=== PATIENT | female | born 2000 | race Caucasian/White ===

== ENCOUNTER → 2020-06-28 14:28 | Outpatient (BNVA) | payer OTHER, SELFPAY | PROVIDERS: Visit Provider Nurse Practitioner Family | DX: Z20.828 Contact with and (suspected) exposure to other viral communicable diseases (principal); J06.9 Acute upper respiratory infection, unspecified | CPT/HCPCS: 87635 ==

== ENCOUNTER → 2021-04-17 09:54 | Outpatient (BNVA) | payer OTHER, SELFPAY | PROVIDERS: Family Provider Family Medicine; PCP Family Medicine; Visit Provider Nurse Practitioner Psychiatric/Mental Health | DX: Z03.89 Encounter for observation for other suspected diseases and conditions ruled out (principal); F41.1 Generalized anxiety disorder; F41.0 Panic disorder [episodic paroxysmal anxiety] | CPT/HCPCS: 80053; 81025; 84439; 84443; 85025 ==

== ENCOUNTER 2021-06-19 09:19 | Emergency (ER) | payer MEDICAID, SELFPAY ==
[2021-06-19 09:35] VITALS: BP 105/70; PULSE 85; RESP 13; TEMP 37.1; O2SAT 98; BMI 19.0
--- NOTE | 2021-06-19 10:34 | W.ED.ABDPA2 ---
HPI - Abdominal Pain General: Chief Complaint: Abdominal Pain Stated Complaint: Nausious and ABD Pain on R side Time Seen by Provider: 06/19/21 09:24 Source: patient Mode of arrival: ambulatory Limitations: no limitations History of Present Illness: HPI narrative: Patient is a 21-year-old female presents to ED today with complaint of abdominal pain that initially started yesterday evening. She states pain began fairly suddenly and states that it took my breath away . She felt nauseous but has not had any episodes of emesis. She states throughout the night she slept okay but significant other states when she awoke this morning she continued to complain of pain to the right side of her abdomen. Patient reports a normal bowel movement this morning. No fevers. She did have a small amount of vaginal bleeding this morning. Last LMP was approximately 10 days ago. She does not complain of any vaginal discharge or odor. MD elicited complaint: abdominal pain Onset (ago): hour(s) Pain Consistency: constant Location: Other (R abdomen) Associated Symptoms: Reports nausea; Denies chills, diarrhea, dysuria, fever(s), hematochezia, hematuria, melena and vomiting Review of Systems Const: Denies: fever(s), chills, body aches or fatigue Card: Denies: chest pain Resp: Denies: dyspnea GI: Reports: abdominal pain and nausea; Denies: vomiting, diarrhea, hematochezia or melena : Denies: flank pain, dysuria, hematuria, vaginal odor or vaginal discharge Musc: Denies: neck pain, back pain, extremity pain or joint pain Skin/Breast: Denies: rash Neuro: Denies: headache(s) or dizziness [facility] ED PFSH: Medical History (Updated 06/19/21 @ 13:47 by OPAL Moody) Psychiatric care Social History Smoking and tobacco status: current every day smoker e-cigarettes E-Cigarette Details: vaporizer device and with nicotine E-cig/vape details: 5% nicotine 1 pod last 4-5 days Quit status (tobacco): considering quitting Second hand smoke exposure: No Smoking risk assessment/counseling performed?: No Physical Exam Const: COMMON NORMALS: no acute distress, patient oriented x3, no limitations and alert GENERAL APPEARANCE: cooperative NUTRITIONAL APPEARANCE: thin ORIENTATION/CONSCIOUSNESS: Yes awake, Yes oriented to person, Yes oriented to place and Yes oriented to time HENMT: COMMON NORMALS: normocephalic and atraumatic HEAD & SCALP: normocephalic and atraumatic Resp: COMMON NORMALS: normal respiratory effort and clear to auscultation bilaterally AUSCULTATION: clear to auscultation bilaterally Cardio: COMMON NORMALS: regular rate and regular rhythm RATE: regular rate RHYTHM: regular rhythm GI: COMMON NORMALS: Normal to inspection, nondistended, normoactive bowel sounds present, Soft to palpation, No hepatosplenomegaly present and no masses INSPECTION: Yes normal to inspection AUSCULTATION: Yes normoactive bowel sounds PALPATION: Yes Soft to palpation, Yes Tenderness to palpation present (GI) (RUQ, R abdomen, periumbilical), Yes Guarding due to palpation present (GI) and Yes No hepatosplenomegaly present : COMMON NORMALS: Yes no CVA tenderness BLADDER/KIDNEY EXAM: Yes no CVA tenderness Back/Pelvis: COMMON NORMALS: no CVA tenderness Extremity: GENERAL: Yes normal exam except as noted Neuro: COMMON NORMALS: patient oriented x3 SENSORIUM/ORIENTATION: Yes alert, Yes oriented to person, Yes oriented to place and Yes oriented to time Skin: COMMON NORMALS: no rashes or lesions noted GENERAL SKIN EXAM: no rashes or lesions noted Course Vital Signs: Vital signs: Vital Signs Temperature 98.7 F 06/19/21 09:35 Pulse Rate 85 06/19/21 12:29 Respiratory Rate 16 06/19/21 12:29 Blood Pressure 104/71 06/19/21 12:29 Pulse Oximetry 100 06/19/21 12:29 MDM - Abdominal Pain MDM Narrative: Medical decision making narrative: Patient clinically appears in no acute distress. Her vital signs are perfect. She has a very mild white count at 11.1. Chemistry panel is unremarkable. She has a nonspecific mild elevation to her lipase at 86. is negative. UA showing some hematuria most likely secondary to some small amount of vaginal bleeding that patient complained of. CT scan does not show any acute pathology. Her appendix was not visualized. Gallbladder was fluid-filled and distended-radiologist recommended ultrasound for further evaluation. This was essentially normal. US pelvis normal as well. At this time I would recommend close observation of symptoms at home over the next 24 hours with strict return to ED precautions given. Otherwise I would like her to follow up with PCP this week for re-evaluation. Lab Data: Labs: Lab Results 06/19/21 06/19/21 06/19/21 10:15 10:44 10:44 WBC 11.1 10^3/uL H 10 ^3/uL (4.0-10.0) RBC 4.23 10^6/uL 10^6 /uL (4.1-5.3) Hgb 12.6 g/dL g/dL (11.5-15.3) Hct 38.3 % % (37.0-47.0) MCV 90.5 fl fl (81-99) MCH 29.8 pg pg (28.0-34.0) MCHC 32.9 g/dL g/dL (30.0-36.0) RDW 11.9 % L % (12.1-15.1) Plt Count 318 10^3/cmm 10^3 /cmm (130-400) MPV 8.7 fL fL (7.4-10.4) Neut % (Auto) 72.8 % % Lymph % (Auto) 18.5 % % [place] % (Auto) 6.5 % % Eos % (Auto) 1.2 % % Baso % (Auto) 0.6 % % Neut # (Auto) 8.06 10^3/uL H 10 ^3/uL (1.8-7.7) Lymph # (Auto) 2.1 10^3/uL 10^3/ uL (0.8-4.8) [place] # (Auto) 0.7 10^3/uL 10^3/ uL (0.2-0.9) Eos # (Auto) 0.1 10^3/uL 10^3/ uL (0.0-0.8) Baso # (Auto) 0.1 10^3/uL 10^3/ uL (0.0-0.1) Nucleated RBC % (a uto) 0 % % Nucleated RBCs # 0.0 /100WBC /100W BC Sodium 136 mmol/L mmol/L (136-145) Potassium 4.6 mmol/L mmol/L (3.5-5.1) Chloride 102 mmol/L mmol/L (98-107) Carbon Dioxide 22 mmol/L mmol/L (22-29) Anion Gap 16.6 (5-19) BUN 14 mg/dL mg/dL (6-20) Creatinine 0.6 mg/dL mg/dL (0.5-0.9) GFR Calculation 126.2 mL/min mL/m in (90-130) Glucose 84 mg/dL mg/dL (65-115) Calculated Osmolal ity 282 mOsm/kg L mOs m/kg (285-295) Calcium 8.6 mg/dL mg/dL (8.5-10.5) Total Bilirubin 0.7 mg/dL mg/dL (0.15-1.2) AST 17 U/L U/L (0-32) ALT 9 U/L U/L (0-33) Alkaline Phosphata se 86 IU/L IU/L (35-105) Total Protein 7.7 g/dL g/dL (6.6-8.7) Albumin 4.5 g/dL g/dL (3.5-5.2) Globulin 3.2 g/dL g/dL (1.3-4.6) Lipase 86 U/L H U/L (13-60) HCG, Qual Urine Color Yellow (Yellow) Urine Appearance Clear (CLEAR) Urine pH 5 (5-7) Ur Specific Gravit y 1.015 (1.005-1.030) Urine Protein Neg (Negative) Urine Glucose (UA) Norm (Normal) Urine Ketones Negative (Negative) Urine Blood 2+ H (Negative) Urine Nitrate Negative (Negative) Urine Bilirubin Neg (Negative) Urine Urobilinogen Norm mg/dL mg/dL (Negative) Ur Leukocyte Arielle ase Negative (Negative) Urine RBC 0-4 /hpf H /hpf (0-2) Urine WBC None /hpf /hpf (0-5) Ur Squamous Epith Cells 5-10 /hpf H /hpf (0-5) Amorphous Sediment Not Reportable Urine Bacteria 1+ /hpf H /hpf (NONE) Urine Mucus 2+ /hpf /hpf 06/19/21 10:44 WBC RBC Hgb Hct MCV MCH MCHC RDW Plt Count MPV Neut % (Auto) Lymph % (Auto) [place] % (Auto) Eos % (Auto) Baso % (Auto) Neut # (Auto) Lymph # (Auto) [place] # (Auto) Eos # (Auto) Baso # (Auto) Nucleated RBC % (a uto) Nucleated RBCs # Sodium Potassium Chloride Carbon Dioxide Anion Gap BUN Creatinine GFR Calculation Glucose Calculated Osmolal ity Calcium Total Bilirubin AST ALT Alkaline Phosphata se Total Protein Albumin Globulin Lipase HCG, Qual Negative (Negative) Urine Color Urine Appearance Urine pH Ur Specific Gravit y Urine Protein Urine Glucose (UA) Urine Ketones Urine Blood Urine Nitrate Urine Bilirubin Urine Urobilinogen Ur Leukocyte Arielle ase Urine RBC Urine WBC Ur Squamous Epith Cells Amorphous Sediment Urine Bacteria Urine Mucus Imaging Data ^: CT Abd/Pel: Radiologist's impression: [facility] [place] [id number] Scan ReportSigned Patient: Chika Garces AUnit #: [id number]: 2000Acct#:[id number]/Sex: 21 / FADM Date: 06/19/21Loc: ERRoom/Bed:Attending Dr: Ordering Provider/Ordering MD: Mary Anthony Date of Service: 06/19/21 Procedure(s): CT abdomen pelvis w con* [id number] Accession Number(s): [id number] Report Number: [id number] WS: [id number] CT ABDOMEN PELVIS TECHNIQUE: Contrast-enhanced CT of the abdomen and pelvis with coronal and sagittal reformatted images. CLINICAL INFORMATION: R abdominal pain COMPARISON: None. DLP: 594.[address] scans at [facility] use at least one of these dose optimization techniques: automated exposure control; mA and/or kV adjustment per patient size (includes targeted exams where dose is matched to clinical indication); or iterative reconstruction. FINDINGS: Lung bases are well aerated. Diffuse fatty infiltration liver. Normal portal vein and splenic vein. Normal spleen. Normal GE junction. Fluid distended gallbladder which is otherwise normal in appearance. Normal pancreatic parenchymal enhancement. Adrenal glands are normal. Normal renal parenchymal enhancement. No hydronephrosis. Normal caliber abdominal aorta. Heterogeneous physiologic uterine enhancement. Thickened endometrium or fluid in the endometrial canal. Peripherally enhancing left ovarian or corpus luteum cyst measuring 13 mm. Small amount of fluid in the right pericolic gutter. Appendix is not visualized. Tortuous sigmoid colon with a low-lying transverse colon and cecum. Mild cecal and sigmoid constipation. CT/CT abdomen pelvis w con* [id number] IMPRESSION: 1. Small amount of fluid in the right lower quadrant. Appendix is not visualized. 2. Heterogeneous physiologic uterine enhancement with thickened endometrium and/or fluid. Peripheral enhancing left ovarian or corpus luteum cyst measuring 13 mm. 3. Small amount of free fluid in the cul-de-sac. 4. Fluid distended gallbladder. 5. Mild diffuse fatty infiltration of the liver. Notified OPAL Moody at 06/19/2021 12:34 PM. Dictated By:Manas Malik MDSigned By:Manas Malik MDSigned Date/Time:06/19/21 1239DD/ 1219 US gallbladder: Radiologist's impression: [facility] [address] Ultrasound Report Signed Patient: Chika Garces Unit #: [id number] : 2000 Age/Sex: 21 / F ADM Date: 06/19/21 Loc: ER Room/Bed: Attending Dr: Ordering Provider/Ordering MD: Mary Anthony Date of Service: 06/19/21 Procedure(s): US gall bladder 27356 Accession Number(s): [id number] Report Number: [id number] WS: [id number] ULTRASOUND ABDOMEN LIMITED CLINICAL INFORMATION: RUQ pain FINDINGS: Liver Size: Normal. Craniocaudal length: 11.8 cm. Echogenicity: Coarse Surface nodularity: None. Mass (size and location): None. Bile ducts Intrahepatic ducts: Normal. Common bile duct diameter: 0.2 cm. Gallbladder Mild fluid distention of the gallbladder Gallstones: None. Gallbladder sludge: None. Gallbladder wall thickening: None. Pericholecystic fluid: None. Sonographic Soto sign: Absent. Pancreas Normal as visualized. Right kidney: Normal. Hydronephrosis: None. Size: 12.1 cm x 4.1 cm x 3.2 cm. Abdominal aorta and IVC Visualized portions are normal. Ascites: None. US/US gall bladder [id number] IMPRESSION: 1. Mild diffuse fatty infiltration of the liver. 2. Fluid distended gallbladder. No gallbladder wall thickening or pericholecystic fluid. 3. Cholelithiasis. 4. Normal common bile duct. 5. No hydronephrosis in right kidney. Dictated By: Manas Malik MD Signed By: Manas Malik MD Signed Date/Time: 06/19/21 1331 DD/ 1328 US pelvis/TV: Radiologist's impression: [address] [place] [address] Ultrasound Report Signed Patient: Chika Garces Unit #: [id number] : 2000 Age/Sex: 21 / F ADM Date: 06/19/21 Loc: ER Room/Bed: Attending Dr: Ordering Provider/Ordering MD: Mary Anthony Date of Service: 06/19/21 Procedure(s): US transvaginal 25188 Accession Number(s): [id number] Report Number: [id number] WS: [id number] ULTRASOUND PELVIS TECHNIQUE: Transvaginal. CLINICAL INFORMATION: R abdominal pain, some vaginal bleeding, ovarian cysts COMPARISON: None. FINDINGS: Uterus Orientation: Anteverted. Size: 7.6 x 2.9 x 5.3 cm Masses: None. Cervix: Incidental nabothian cysts. Endometrium: Thickened Endometrium thickness: 14 mm. Adnexa: Multifollicular ovaries bilaterally. Right ovary size: 2.7 x 1.1 x 2.2 cm. Left ovary size: 2.3 x 2.6 x 4.3 cm. Free fluid: Present Other findings: None. US/US transvaginal [id number] IMPRESSION: 1. Thickened echogenic endometrium measuring 14 mm. 2. Incidental nabothian cysts in the cervix. 3. Multifollicular ovaries bilaterally. Normal vascularity to both ovaries. 4. Small amount of free fluid in the cul-de-sac. 5. No other significant findings. Dictated By: Manas Malik MD Signed By: Manas Malik MD Signed Date/Time: 06/19/21 1412 DD/ 1408 Discharge Plan Discharge Patient Disposition: Home Clinical Impression: Abdominal pain of unknown cause Condition: Stable Prescriptions: No Action sertraline 100 mg tablet 150 mg PO DAILY Qty: 60 RF: 1 acetaminophen 500 mg capsule 500 mg PO Q6H PRNRF: 0 multivitamin Tablet 1 tab PO DAILY RF: 0 Discharge Orders: Discharge ED (Routine); Ordered 06/19/21 Ordered By: Mary Anthony Referrals: Mellisa Stevens MD [Primary Care Provider] - Patient Instructions: Abdominal Pain (ED) Activity Restrictions/Additional Instructions: As we discussed please monitor symptoms closely over the next 24 to 48 hours. Return to the emergency department for progressive/worsening pain, repetitive episodes of vomiting or diarrhea, fevers, generally feeling unwell, or any other concerns you may have. Please follow-up with primary care this week for reevaluation. Hope you begin to feel better soon. Coding Level of Care Code ED Wire Wheeler for Chg Fwd Exam Comprehensive
--- NOTE | 2021-06-19 10:39 | CT_ITS ---
WS: [email or web address] CT ABDOMEN PELVIS TECHNIQUE: Contrast-enhanced CT of the abdomen and pelvis with coronal and sagittal reformatted image s. CLINICAL INFORMATION: R abdominal pain COMPARISON: None. DLP: 594.[address] scans at [facility] use at least one of these dose optimization techniques: automated e xposure control; mA and/or kV adjustment per patient size (includes targeted exams where dose is matc hed to clinical indication); or iterative reconstruction. FINDINGS: Lung bases are well aerated. Diffuse fatty infiltration liver. Normal portal vein and splenic vein. N ormal spleen. Normal GE junction. Fluid distended gallbladder which is otherwise normal in appearance . Normal pancreatic parenchymal enhancement. Adrenal glands are normal. Normal renal parenchymal enha ncement. No hydronephrosis. Normal caliber abdominal aorta. Heterogeneous physiologic uterine enhancement. Thickened endometrium or fluid in the endometrial tamera l. Peripherally enhancing left ovarian or corpus luteum cyst measuring 13 mm. Small amount of fluid i n the right pericolic gutter. Appendix is not visualized. Tortuous sigmoid colon with a low-lying tra nsverse colon and cecum. Mild cecal and sigmoid constipation. CT/CT abdomen pelvis w con* [id number] IMPRESSION: 1. Small amount of fluid in the right lower quadrant. Appendix is not visualiz ed. 2. Heterogeneous physiologic uterine enhancement with thickened endometrium an d/or fluid. Peripheral enhancing left ovarian or corpus luteum cyst measuring 1 3 mm. 3. Small amount of free fluid in the cul-de-sac. 4. Fluid distended gallbladder. 5. Mild diffuse fatty infiltration of the liver. Notified OPAL Moody at 06/19/2021 12:34 PM.
[2021-06-19 10:47] LABS: Urine Appearance Clear (CLEAR); Urine Color Yellow (Yellow)
[2021-06-19 10:48] LABS: Add Urine Microscopic? YES; Bilirubin Urine Neg (Negative); Blood Urine 2+ (Negative); Glucose Urine UA Norm (Normal); Ketones Urine Negative (Negative); Leukocyte Esterase Urine Negative (Negative); Nitrate Urine Negative (Negative); Protein Urine Neg (Negative); Specific Gravity, Urine 1.015 (1.005-1.030); Urobilinogen Urine Norm (Negative); pH Urine 5 (5-7)
[2021-06-19 10:53] LABS: Add Urine Culture? No; Bacteria Urine 1+ /hpf; Mucus Urine 2+ /hpf; RBC Urine 0-4 /hpf (0-2)
[2021-06-19 10:54] LABS: Basophils # 0.1 10^3/uL (0.0-0.1); Basophils % 0.6 %; Eosinophils # 0.1 10^3/uL (0.0-0.8); Eosinophils % 1.2 %; Hematocrit 38.3 % (37.0-47.0); Hemoglobin 12.6 g/dL (11.5-15.3); Lymphocytes # 2.1 10^3/uL (0.8-4.8); Lymphocytes % 18.5 %; Mean Corpuscular HGB Conc 32.9 g/dL (30.0-36.0); Mean Corpuscular Hemoglobin 29.8 pg (28.0-34.0); Mean Corpuscular Volume 90.5 fl (81-99); Mean Platelet Volume 8.7 fL (7.4-10.4); Monocytes # 0.7 10^3/uL (0.2-0.9); Monocytes % 6.5 %; Neutrophils # 8.06 10^3/uL (1.8-7.7); Neutrophils % 72.8 %; Nucleated Red Blood Cells % 0 %; Platelet Count 318 10^3/cmm (130-400); Red Blood Count 4.23 10^6/uL (4.1-5.3); Red Cell Distribution Width 11.9 % (12.1-15.1); White Blood Count 11.1 10^3/uL (4.0-10.0)
[2021-06-19 11:14] LABS: Alanine Aminotransferase 9 U/L (0-33); Albumin Level 4.5 g/dL (3.5-5.2); Alkaline Phosphatase 86 IU/L (35-105); Anion Gap 16.6 (5-19); Aspartate Amino Transferase 17 U/L (0-32); Blood Urea Nitrogen 14 mg/dL (6-20); Calcium 8.6 mg/dL (8.5-10.5); Carbon Dioxide 22 mmol/L (22-29); Chloride 102 mmol/L (98-107); Globulin 3.2 g/dL (1.3-4.6); Glomerular Filtration Rate 126.2 mL/min (90-130); Glucose 84 mg/dL (65-115); Lipase 86 U/L (13-60); Osmolality Calculated 282 mOsm/kg (285-295); Potassium 4.6 mmol/L (3.5-5.1); Sodium 136 mmol/L (136-145); Total Bilirubin 0.7 mg/dL (0.15-1.2); Total Protein 7.7 g/dL (6.6-8.7)
[2021-06-19 11:19] LABS: HCG, Serum Qual Negative (Negative)
[2021-06-19 11:25] VITALS: BP 103/69; PULSE 84; RESP 16; O2SAT 99
[2021-06-19] MEDS: iohexol 300 mg/mL 100 mL Btl IV (11:44)
[2021-06-19 12:29] VITALS: BP 104/71; PULSE 85; RESP 16; O2SAT 100
--- NOTE | 2021-06-19 12:33 | US_ITS ---
WS: [email or web address] ULTRASOUND ABDOMEN LIMITED CLINICAL INFORMATION: RUQ pain FINDINGS: Liver Size: Normal. Craniocaudal length: 11.8 cm. Echogenicity: Coarse Surface nodularity: None. Mass (size and location): None. Bile ducts Intrahepatic ducts: Normal. Common bile duct diameter: 0.2 cm. Gallbladder Mild fluid distention of the gallbladder Gallstones: None. Gallbladder sludge: None. Gallbladder wall thickening: None. Pericholecystic fluid: None. Sonographic Soto sign: Absent. Pancreas Normal as visualized. Right kidney: Normal. Hydronephrosis: None. Size: 12.1 cm x 4.1 cm x 3.2 cm. Abdominal aorta and IVC Visualized portions are normal. Ascites: None. US/US gall bladder [id number] IMPRESSION: 1. Mild diffuse fatty infiltration of the liver. 2. Fluid distended gallbladder. No gallbladder wall thickening or pericholecys tic fluid. 3. Cholelithiasis. 4. Normal common bile duct. 5. No hydronephrosis in right kidney.
--- NOTE | 2021-06-19 12:33 | US_ITS ---
WS: [email or web address] ULTRASOUND PELVIS TECHNIQUE: Transvaginal. CLINICAL INFORMATION: R abdominal pain, some vaginal bleeding, ovarian cysts COMPARISON: None. FINDINGS: Uterus Orientation: Anteverted. Size: 7.6 x 2.9 x 5.3 cm Masses: None. Cervix: Incidental nabothian cysts. Endometrium: Thickened Endometrium thickness: 14 mm. Adnexa: Multifollicular ovaries bilaterally. Right ovary size: 2.7 x 1.1 x 2.2 cm. Left ovary size: 2.3 x 2.6 x 4.3 cm. Free fluid: Present Other findings: None. US/US transvaginal [id number] IMPRESSION: 1. Thickened echogenic endometrium measuring 14 mm. 2. Incidental nabothian cysts in the cervix. 3. Multifollicular ovaries bilaterally. Normal vascularity to both ovaries. 4. Small amount of free fluid in the cul-de-sac. 5. No other significant findings.
== END 2021-06-19 13:56 | disposition home or self-care (01) ==
PROVIDERS: Emergency Provider Physician Assistant; PCP Family Medicine
DX: R10.9 Unspecified abdominal pain (principal); F17.290 Nicotine dependence, other tobacco product, uncomplicated
CPT/HCPCS: 36415; 74177; 76705; 76830; 80053; 81001; 83690; 84703; 85025; 99283; Q9967

== ENCOUNTER → 2021-08-06 08:46 | Outpatient (BNVA) | payer BC, MEDICAID, SELFPAY | PROVIDERS: PCP Family Medicine; Visit Provider Nurse Practitioner Psychiatric/Mental Health | DX: F41.1 Generalized anxiety disorder (principal); F41.0 Panic disorder [episodic paroxysmal anxiety] | CPT/HCPCS: 99214 ==

== ENCOUNTER → 2021-09-04 10:30 | Outpatient (BNVA) | payer BC, SELFPAY | PROVIDERS: PCP Family Medicine; Visit Provider Nurse Practitioner Psychiatric/Mental Health | DX: F41.1 Generalized anxiety disorder (principal); F41.0 Panic disorder [episodic paroxysmal anxiety] | CPT/HCPCS: 99203 ==

== ENCOUNTER → 2021-11-26 15:40 | Outpatient (BNVA) | payer BC, SELFPAY | PROVIDERS: PCP Family Medicine; Visit Provider Nurse Practitioner Psychiatric/Mental Health | DX: F41.0 Panic disorder [episodic paroxysmal anxiety] (principal); F41.1 Generalized anxiety disorder; F33.1 Major depressive disorder, recurrent, moderate | CPT/HCPCS: 99214 ==

== ENCOUNTER 2022-07-30 06:16 | Outpatient (CLI) | payer BC, MEDICAID, SELFPAY ==
--- NOTE | 2022-07-30 06:32 | US_ITS ---
WS: [email or web address] EARLY OBSTETRICAL ULTRASOUND (<14 WEEKS). HISTORY: DATING COMPARISON: None available. Single intrauterine gestational sac is identified. Cardiac activity at 160 BPM. Bannock-rump length spencer sures 3.9 cm which corresponds to a gestation of 10w6d. Normal-appearing yolk sac and amnion demonstr ated. No subchorionic hemorrhage. No free fluid. Normal size ovaries with no mass. US/US OB <= 14 weeks fetus [id number] IMPRESSION: 1. Single intrauterine gestation of 10 weeks 6 days with an EDC of 02/19/2023. 2. Normal cardiac activity.
== END 2022-07-30 06:17 | disposition home or self-care (01) ==
LOC: RAD 06:19
PROVIDERS: PCP Family Medicine; Visit Provider Family Medicine
DX: Z36.87 Encounter for antenatal screening for uncertain dates (principal); Z3A.10 10 weeks gestation of pregnancy
CPT/HCPCS: 76801

== ENCOUNTER 2023-01-20 11:02 | Outpatient (CLI) | payer BC, MEDICAID, SELFPAY ==
--- NOTE | 2023-01-20 | US_ITS ---
WS: [email or web address] ULTRASOUND OB LIMITED TECHNIQUE: Limited ultrasound examination of the fetus. CLINICAL INFORMATION: CLUBFOOT COMPARISON: 10/08/22 FINDINGS: Cervix appears long and closed measuring 3.5 cm Single interuterine gestation. presentation is breech. Placental location is anterior. Placenta grade: 2 heart rate 131 BPM. Normal amniotic fluid volume Biophysical profile 8 out of 8. breathin movement: 2 tone: 2 Amniotic fluid: 2 US/US OB BPP wo NST [id number] IMPRESSION: 1. Normal biophysical profile 8 out of 8 2. Previously described bilateral clubfoot. 3. presentation is breech.
== END 2023-01-20 11:03 | disposition home or self-care (01) ==
PROVIDERS: PCP Family Medicine; Visit Provider Family Medicine
DX: O36.8990 Maternal care for other specified fetal problems, unspecified trimester, not applicable or unspecified (principal); O32.1XX0 Maternal care for breech presentation, not applicable or unspecified; Z3A.00 Weeks of gestation of pregnancy not specified
CPT/HCPCS: 76819

== ENCOUNTER 2023-02-05 15:28 | Outpatient (CLI) | payer BC, MEDICAID, SELFPAY ==
[2023-02-05 15:28] VITALS: RESP 17; BMI 24.4
[2023-02-05 15:42] VITALS: BP 110/73; PULSE 75
[2023-02-05 15:57] VITALS: BP 106/65; PULSE 72
[2023-02-05 16:11] VITALS: BP 114/74; PULSE 74
[2023-02-05 16:26] VITALS: BP 113/74; PULSE 75
--- NOTE | 2023-02-05 16:39 | USR_ITS ---
PROCEDURE INFORMATION: Exam: US Biophysical Profile Without Non-Stress Test Exam date and time: 02/05/2023 5:04 PM Age: 22 years old Clinical indication: status abnormalities: ; Other: Non reassuring fht; Single gestation; Third trimester (=28 weeks 0 days); TECHNIQUE: Imaging protocol: US biophysical profile without non-stress testing. COMPARISON: US OB BPP wo NST [id number] 01/20/2023 12:31 PM FINDINGS: heart rate: 150 bpm Amniotic fluid index: RAMAN is 8.5 cm. BIOPHYSICAL PROFILE: breathing movement (BPP): 2 out of 2. body movement (BPP): 2 out of 2. tone (BPP): 2 out of 2. Amniotic fluid (BPP): 2 out of 2. MATERNAL ANATOMY: Cervix: Cervical length measures 3.9 cm. US/US OB BPP wo NST [id number] IMPRESSION: Biophysical profile score is normal at 01/28.
== END 2023-02-05 17:19 | disposition home or self-care (01) ==
LOC: OPOB 15:36 → OBGYN 15:36
PROVIDERS: PCP Family Medicine; Visit Provider Family Medicine
DX: Z36.9 Encounter for antenatal screening, unspecified (principal)
CPT/HCPCS: 59025; 76819; 99211

== ENCOUNTER 2023-02-08 18:00 | Outpatient (CLI) | payer BC, MEDICAID, SELFPAY ==
[2023-02-08] VITALS (7 sets, daily range): BP systolic 100–116; BP diastolic 65–74; PULSE 70–78; RESP 16; TEMP 36.8; BMI 24.6
--- NOTE | 2023-02-08 18:21 | USR_ITS ---
PROCEDURE INFORMATION: Exam: US Biophysical Profile Without Non-Stress Test Exam date and time: 02/08/2023 6:32 PM Age: 22 years old Clinical indication: Other: Non reactive nst; TECHNIQUE: Imaging protocol: US biophysical profile without non-stress testing. COMPARISON: US OB BPP NST [id number] 02/05/2023 5:04 PM FINDINGS: BIOPHYSICAL PROFILE: breathing movement (BPP): 2 out of 2. body movement (BPP): 2 out of 2. tone (BPP): 2 out of 2. Amniotic fluid (BPP): 2 out of 2. Cervix appears closed, measuring 3.6 cm in length. Note is made of breech presentation at this time. heart rate of 131 beats per minute. Gestational age of 38 weeks 3 days clinically. Anterior placenta. US/US OB BPP NST [id number] IMPRESSION: Biophysical profile score is 8 out of 8.
== END 2023-02-08 19:33 | disposition home or self-care (01) ==
LOC: OPOB 18:02 → OBGYN 18:03
PROVIDERS: Family Provider Family Medicine; PCP Family Medicine; Visit Provider Family Medicine
DX: Z36.9 Encounter for antenatal screening, unspecified (principal)
CPT/HCPCS: 59025; 76819; 99211

== ENCOUNTER 2023-02-10 10:00 | Outpatient (CLI) | payer BC, MEDICAID, SELFPAY ==
[2023-02-10 09:56] VITALS: BMI 23.4
[2023-02-10 10:06] VITALS: BP 127/76; PULSE 81
[2023-02-10 10:07] VITALS: TEMP 35.9
[2023-02-10 10:28] VITALS: BP 116/66; PULSE 80
[2023-02-10 10:45] VITALS: BP 116/66; PULSE 80; RESP 16
== END 2023-02-10 10:45 | disposition home or self-care (01) ==
LOC: OPOB 10:01 → OBGYN 10:02
PROVIDERS: Family Provider Family Medicine; PCP Family Medicine; Visit Provider Family Medicine
DX: Z36.9 Encounter for antenatal screening, unspecified (principal)
CPT/HCPCS: 59025; 99211

== ENCOUNTER 2023-02-11 04:53 | Inpatient (IN) | payer BC, MEDICAID, SELFPAY ==
--- NOTE | 2023-02-03 14:04 | ANES.PREANE2 ---
Pre-Anesthetic Assessment Height/Weight: Height 1.5 m Operation Date: 02/17/23 07:20 Proposed Procedures p Section(Not Applicable) - Shahriar Cortes MD Familial anesthetic complications: none Was Beta Amalia taken within 24 hours: N/A Was Clonidine taken within 24 hours: N/A Social No alcohol and No tobacco Exam alert, oriented x 3, clear to auscultation bilaterally and regular rate & rhythm Airway Submandibular: within normal limits Cervical ROM: within normal limits Mallampati: Class I Dentition: chipped Neuropsych Anxiety and Depression Anesthetic Plan ASA status: 2 Anesthesia: Regional (specify below) (SAB) Medications/Allergies Home Medications Medication Instructions Recorded Confirmed Last Taken Type multivitamin 1 tab PO DAILY 03/22/21 12/25/21 Unknown History bupropion HCl 150 mg 24 hr tablet, 150 mg PO QAM #30 tabs 12/25/21 12/25/21 Unknown Rx extended release escitalopram oxalate 10 mg tablet 10 mg PO .q am #30 tabs 12/25/21 12/25/21 Unknown Rx Allergies Allergy/AdvReac Type Severity Reaction Status Date / Time Penicillins Allergy ALGY-Anaphy Verified 11/26/21 16:04 laxis cillins Allergy Severe Anaphalaxis Uncoded 11/26/21 16:04 & rash PFSH Anesthesia Social History Smoking and tobacco status: current every day smoker e-cigarettes E-Cigarette Details: vaporizer device and with nicotine E-cig/vape details: 5% nicotine 1 pod last 4-5 days Quit status (tobacco): considering quitting Second hand smoke exposure: No Smoking risk assessment/counseling performed?: No Data Anesthesia Cardiac Studies: No Data to Display
[2023-02-11] VITALS (58 sets, daily range): BP systolic 95–138; BP diastolic 43–85; PULSE 65–96; RESP 16–17; TEMP 36.6–36.8; O2SAT 98–100; BMI 25.2
[2023-02-11 05:44] LABS: Basophils # 0.1 10^3/uL (0.0-0.1); Basophils % 0.5 %; Eosinophils # 0.1 10^3/uL (0.0-0.8); Hematocrit 32.1 % (37.0-47.0); Hemoglobin 10.4 g/dL (11.5-15.3); Lymphocytes # 2.9 10^3/uL (0.8-4.8); Lymphocytes % 25.9 %; Mean Corpuscular HGB Conc 32.4 g/dL (30.0-36.0); Mean Corpuscular Hemoglobin 28.2 pg (28.0-34.0); Mean Platelet Volume 9.5 fL (7.4-10.4); Monocytes % 8.5 %; Neutrophils # 7.22 10^3/uL (1.8-7.7); Neutrophils % 63.6 %; Nucleated Red Blood Cells % 0 %; Platelet Count 193 10^3/cmm (130-400); Red Blood Count 3.69 10^6/uL (4.1-5.3); White Blood Count 11.4 10^3/uL (4.0-10.0)
[2023-02-11 05:54] LABS: Amphetamines Screen Urine Negative (Negative); Barbiturates Screen Urine Negative (Negative); Benzodiazepines Screen Urine Negative (Negative); Cocaine Screen Urine Negative (Negative); Opiate Screen Urine Negative (Negative); PCP Screen Urine Negative (Negative); THC Screen Urine Negative (Negative)
[2023-02-11] MEDS: citric acid-sodium citrate 30 mL UDC PO (06:45)
[2023-02-11] MEDS: metoclopramide 5 mg/mL SDV 2 mL 10 MG IVP (06:45)
[2023-02-11] MEDS: famotidine 20 mg/2 mL INJ IVP (06:45)
--- NOTE | 2023-02-11 06:48 | PM.OBGYHP ---
Providers/Chief Complaint Admitting Physician: Shahriar Cortes MD Primary Care Provider: Shahriar Cortes MD Chief Complaint: epi consult HPI FINANCIAL SERVICES DIRECTOR History of Present Illness Chika Garces is a 22 year old 2 para 0-0-1-0 female at 38 weeks estimated gestational age presenting for a section due to breech presentation. We are performing her section a week earlier than planned because she has had multiple biophysical profiles in which the baby's movements have been sluggish and is required more than the usual time to obtain a 6 out of 8 biophysical profile 2 out of last 4 valvular profiles are performed. As such, I felt that the benefits of perform the section early outweigh the risks of waiting for another week. Especially in the case of a child with clubfeet and a potential for other unknown problems as well. Otherwise her has been notable for her being on methadone throughout her . And been positive for THC as well during her initial drug screen. Her blood type is O+. Her antibody screen was negative. She is rubella immune. She passed her glucose screen. The remainder of her infectious disease profile was within normal limits. Present Details : 2 Para: 0 Labs Rubella: Immune RPR: Negative GBS: Negative Review of Systems General: Reports: 10 or more systems reviewed and unremarkable except in HPI and below Const: Reports: fatigue; Denies: fever(s) Eyes: Denies: change in vision Card: Denies: chest pain Musc: Reports: back pain Jacques/Lymph: Denies: easy bruising Medications/Allergies Home Medications Medication Instructions Recorded Confirmed Last Taken Type methadone 5 mg tablet 55 mg PO DAILY 02/11/23 02/11/23 02/11/23 04:30 History sjltyo42-dqbc fum,oh-fvdho-hry 1 tab PO DAILY 02/11/23 02/11/23 02/10/23 08:00 History docusate sodium 100 mg capsule 100 mg PO BID #14 caps 02/13/23 Unknown Rx ibuprofen 800 mg tablet 800 mg PO TID #45 tabs 02/13/23 Unknown Rx oxycodone-acetaminophen 5 mg-325 2 tab PO Q6H PRN Moderate To 02/13/23 Unknown Rx mg tablet Severe Pain #28 tabs Allergies Allergy/AdvReac Type Severity Reaction Status Date / Time Penicillins Allergy ALGY-Anaphy Verified 11/26/21 16:04 laxis cillins Allergy Severe Anaphalaxis Uncoded 11/26/21 16:04 & rash PFSH FINANCIAL SERVICES DIRECTOR PFSH: Family History (Updated 02/11/23 @ 06:55 by Shahriar Cortes MD) Father Hypertension Social History Smoking and tobacco status: current every day smoker e-cigarettes E-Cigarette Details: vaporizer device and with nicotine E-cig/vape details: 5% nicotine 1 pod last 4-5 days Quit status (tobacco): considering quitting Second hand smoke exposure: No Smoking risk assessment/counseling performed?: No Vitals/I&O/Wt Last Vital Signs Pulse 85 02/11/23 05:40 Resp 16 02/11/23 05:07 BP 117/69 02/11/23 05:40 O2 Del Method Room Air 02/11/23 05:17 Weight last 48 hrs Weight 125 lb Physical Exam Const: COMMON NORMALS: patient oriented x3 and alert HENMT: COMMON NORMALS: moist oral mucous membranes HEAD & SCALP: normal to inspection Chest: COMMONS NORMALS: normal inspection of the chest Resp: COMMON NORMALS: clear to auscultation bilaterally AUSCULTATION: clear to auscultation bilaterally Cardio: COMMON NORMALS: regular rate and regular rhythm RATE: regular rate RHYTHM: regular rhythm GI: INSPECTION: Yes normal to inspection and Yes other (Gravid) Extremity: COMMON NORMALS: normal to inspection GENERAL: Yes edema (Trace) Neuro: COMMON NORMALS: patient oriented x3, moves all extremities and no sensory deficits noted SENSORIUM/ORIENTATION: Yes alert Psych: COMMON NORMALS: mental status grossly normal Skin: COMMON NORMALS: no rashes or lesions noted GENERAL SKIN EXAM: no rashes or lesions noted Data 02/11/23 20:19 A&P Assessment and plan (1) 38 weeks gestation of : We will proceed with a section. Once again we are making the decision to proceed because the patient had multiple biophysical profiles demonstrating a fetus that was subjectively sluggish and requiring extra time to get a 6 out of 8 biophysical profile. In the face of a fetus that has known anomalies the benefits of delivery now outweigh the small risks of delivering at 38-week baby rather than waiting for another week. Dr. Hammond has been contacted will be present during the (2) Breech presentation: (3) anomaly: Clubfeet have been identified and have been evaluated by a level 2 ultrasound. No further anomalies have been identified at this time, but we are mindful of the increased risk that the baby may have other anomalies as well that have not been identified yet. (4) History of biophysical profile: Attestations Medical Necessity Statement*: I anticipate routine and post care Coding Level of Care Code Acute Code for Chg Fwd Diagnoses 38 weeks gestation of Z3A.38 Breech presentation O32.1XX0 anomaly History of biophysical profile Z92.89
[2023-02-11] MEDS: lactated ringers 1,000 ML 999 ML IV (06:49)
--- NOTE | 2023-02-11 08:04 | PM.OP ---
Operative Report Date of procedure: February 11, 2023 Pre-op diagnosis: 22-year-old 2 para 0-0-1-0 at 38 weeks estimated gestational age. 6 out of 8 biophysical profile Breech presentation Clubfeet Prescribed methadone use of mother throughout Post-op diagnosis: Status post lower transverse section Procedure done: Low-transverse section Specimens removed/disposition: 1. Male infant with a weight of 6 pounds 9 ounces and Apgars of 9 and 10 Surgeon: Shahriar Cortes Estimated blood loss (mL): 600 Complications: None Procedure: The patient was brought back to the operating room where she was prepped and draped in usual sterile fashion. Anesthesia was found to be adequate. A lower transverse skin incision was then made with a #10 blade. I then dissected down to the underlying subcutaneous tissue until arriving at the prerectal fascia. The fascia was then nicked with the scalpel bilaterally. The fascial incisions were then carried laterally with Abel scissors. Attention was then turned to the superior aspect of the incision which was grasped with kochers and tented up away from the underlying rectus abdominis muscles. The muscles were then dissected away from the fascia manually, and later with Abel scissors. Attention was then turned to the inferior aspect of the incision, and the fascia was dissected away from the underlying muscle in similar fashion. The rectus abdominis muscles were then spread manually. The peritoneum was entered manually. Excellent visualization of the uterus was noted. A lower transverse uterine incision was then made with a #10 blade. Upon arriving at the intrauterine cavity, the uterine incision was then extended manually. The infant was noted to be in a vaishali breech position. The baby was delivered without difficulty. After delivery of the head, the mouth and nose were suctioned at the site of the incision. There was no meconium. There was no nuchal cord. The baby was then completely delivered and placed on the abdomen. The cord was cut and clamped. The baby was then handed to Dr. Hammond. The placenta was removed intact. The uterus was externalized. The intrauterine cavity was cleansed of any remaining debris. The uterine incision was reapproximated in 2 layers. The first layer was performed with 0 Vicryl in a running locked stitch. The second layer was an imbricating stitch also using 0 Vicryl. The uterus was replaced into the abdomen. The peritoneum was then irrigated with warm saline. I reexamined the uterine incision and found it to be hemostatic. The rectus abdominis muscles were then reapproximated using 0 Vicryl in a running stitch. The fascia was then reapproximated using 0 Vicryl in running stitch. The subcutaneous tissue was then reapproximated using 0 Vicryl in a running stitch. The skin was reapproximated using madai. A sterile dressing was placed. All counts were correct x2. Both the mother and baby were in stable condition.
[2023-02-11] MEDS: HYDROcodone-acetaminophen 5-325 mg Tablet PO ×2 (09:46→17:08)
--- NOTE | 2023-02-11 10:10 | PC.NURSE ---
breech presentation, club feet
--- NOTE | 2023-02-11 10:10 | ANES.PAUD2 ---
Documented by User: Steffany White CRNA 02/11/23 10:12 Pre-Anesthetic Update Pre-Anesthetic Assessment: Date of Surgery/Procedure: 02/11/23 Proposed Procedure: Operation Date: 02/11/23 07:20 Proposed Procedures p Section(Not Applicable) - Shahriar Cortes MD Any changes to Pre-Anesthetic Assessment?: No Last Intake: Intake Last Liquid Date 02/10/23 Last Liquid Time 23:30 Last Solid Date 02/10/23 Last Solid Time 23:30 Labs Last 48hrs: Short CBC 02/11/23 Range/Units 05:27 WBC 11.4 H (4.0-10.0) 10^3/ uL Hgb 10.4 L (11.5-15.3) g/dL Hct 32.1 L (37.0-47.0) % MCV 87.0 (81-99) fl Plt Count 193 (130-400) 10^3/c mm Neut % (Auto) 63.6 % Neut # (Auto) 7.22 (1.8-7.7) 10^3/u L Blood Bank 02/11/23 05:27 Blood Type O Positive Rho(D) Type Positive Antibody Screen Negative Vitals: Pulse Rate 82 02/11/23 10:04 Respiratory Rate 16 02/11/23 05:07 Respiratory Effort Spontaneous, Non- Labored 02/11/23 05:17 Respiratory Depth Normal 02/11/23 05:17 Respiratory Patter n Normal 02/11/23 05:17 Blood Pressure 110/58 02/11/23 10:04 Oxygen Delivery Me thod Room Air 02/11/23 05:17 Cardiac Studies: No Data to Display Documented by User: Sami Sepulveda 02/11/23 13:53 Pre-Anesthetic Update Pre-Anesthetic Assessment: Date of Surgery/Procedure: 02/11/23 Cardiac Studies: No Data to Display
--- NOTE | 2023-02-11 10:42 | PC.NURSE ---
0800 rounding in OR
[2023-02-11] MEDS: dextrose 5%-lactated ringers 1,000 ML 125 ML IV ×2 (12:52→22:19)
[2023-02-11] MEDS: ketorolac 30 mg/mL INJ IVP ×2 (13:46→20:03)
--- NOTE | 2023-02-11 13:53 | ANE.PACU2 ---
Inpatient post-anesthesia follow up: Airway intact: Yes Vital signs: Temperature 98.0 F Pulse Rate 88 Respiratory Rate 17 Blood Pressure 116/69 Pulse Oximetry 100 Oxygen Delivery Me thod Room Air Oxygen Flow Rate Fraction of Inspir ed Oxygen Hydration adequate: Yes Nausea and vomiting: No Pain level: 2 Mental status: Baseline
[2023-02-11] MEDS: ferrous sulfate EC 325 mg Tablet PO (20:03)
[2023-02-11] MEDS: docusate sodium 100 mg Capsule PO (20:03)
[2023-02-11 20:40] LABS: Hematocrit 29.1 % (36-47); Mean Corpuscular HGB Conc 32.3 g/dL (30-55); Mean Corpuscular Hemoglobin 28.7 pg (27-33); Mean Corpuscular Volume 88.7 fl (85-98); Mean Platelet Volume 9.3 fL (7.4-10.4); Platelet Count 170 10^3/cmm (157-399); Red Blood Count 3.28 10^6/uL (3.85-5.65); Red Cell Distribution Width 12.9 % (12.1-15.1); White Blood Count 12.78 10^3/uL (3.29-11.43)
[2023-02-11] MEDS: oxyCODONE-APAP 5-325 mg Tablet PO (22:19)
[2023-02-12] VITALS (7 sets, daily range): BP systolic 114–120; BP diastolic 65–73; PULSE 72–81; RESP 15–18; TEMP 36.3–36.4; O2SAT 98
[2023-02-12] MEDS: ketorolac 30 mg/mL INJ IVP (01:53)
[2023-02-12] MEDS: oxyCODONE-APAP 5-325 mg Tablet PO ×2 (06:25→11:33)
--- NOTE | 2023-02-12 08:03 | PM.OBGYPN ---
SPORTS BROADCASTER Subjective Subjective: Interval history: The patient had some difficulty with pain last night. She is doing better this morning. Her vitals have been good. Her output has been good. She has passed flatus. There have been no concerns. Labor: Amniotic Membrane Status: Intact Monitor Mode: External Contraction Pattern: Irregular Vitals/I&O/Wt Last Vital Signs Temp 97.5 F L 02/12/23 04:30 Pulse 75 02/12/23 04:29 Resp 16 02/12/23 06:25 BP 114/72 02/12/23 04:29 Pulse Ox 98 02/12/23 06:25 O2 Del Method Room Air 02/11/23 22:00 02/11/23 02/12/23 02/12/23 22:59 06:59 14:59 Intake Total 1500 / 1530 1860.417 / 3390.417 Output Total 1350 / 1880 900 / 2780 Balance 150 / -350 960.417 / 610.417 Weight last 48 hrs Weight 125 lb Physical Exam Narrative: She is in no acute distress Lungs are clear auscultation bilaterally Her heart has a regular rate and rhythm Her fundus is below the umbilicus and firm Her dressing is clean, dry and intact Her extremities have trace edema Urinary Catheter Management: [place]: Cath Placed During This Visit: yes, but has since been removed by the nurse Reason for Continuing Indwelling Catheter: Decision to DC Catheter Urinary Catheter Date of Insertion: 02/11/23 Urinary Catheter Time of Insertion: 07:05 Date Urinary Catheter Removed: 02/12/23 Time Urinary Catheter Discontinued: 05:05 Data 02/11/23 20:19 A&P Assessment and plan (1) 38 weeks gestation of : Overall, the patient is doing well. We will continue to monitor her pain today. Especially in light of her chronic methadone use. She may not respond as well to pain medication as result. (2) Status post : Attestations Medical Necessity Statement*: Routine post care. I anticipate she will be discharged home tomorrow. Coding Level of Care Code Acute Code for Chg Fwd Diagnoses 38 weeks gestation of Z3A.38 Status post Z98.891
[2023-02-12] MEDS: prenatal vitamin Capsule 1 CAP PO (09:41)
[2023-02-12] MEDS: ferrous sulfate EC 325 mg Tablet PO ×2 (09:41→20:07)
[2023-02-12] MEDS: docusate sodium 100 mg Capsule PO ×2 (09:41→20:07)
[2023-02-12] MEDS: ibuprofen 800 mg tablet PO ×2 (16:53→20:08)
[2023-02-12] MEDS: simethicone 80 mg Chew PO (20:08)
[2023-02-13 03:41] VITALS: RESP 18
[2023-02-13] MEDS: oxyCODONE-APAP 5-325 mg Tablet PO (03:41)
[2023-02-13 06:01] VITALS: BP 109/68; PULSE 69; TEMP 36.3
--- NOTE | 2023-02-13 06:30 | PM.OBGYDC ---
Discharge Providers TRAIN CONTROL ELECTRONIC TECHNICIAN Date of Admission: 02/11/23 04:53 Date of Discharge: 02/13/23 Attending Provider at Admission: Shahriar Cortes MD Attending Provider at Discharge: Shahriar Cortes MD Primary Care Provider: Shahriar Cortes MD Diagnoses at Discharge Discharge Diagnosis (1) 38 weeks gestation of : Status: Acute (2) Status post : Status: Acute Reason for Visit Reason for Visit: epi consult Hospital Course Hospital Course The patient presented to the hospital for a scheduled . The was scheduled earlier than expected owing to a 6 out of 8 biophysical profile. The patient's was unremarkable. The patient's hospital course was also relatively unremarkable. Not unexpectedly, her pain was more challenging to control given that the patient is on baseline methadone. Her bleeding has been well controlled. She has tolerated a regular diet well. She has been ambulating. There have been no concerns. Information Peripartum Data: Delivery Method: Physical Exam Narrative: She is in no acute distress Lungs are clear auscultation bilaterally Her heart has a regular rate and rhythm Her fundus is below the umbilicus and firm Her incision is clean, dry and intact Her extremities have trace edema Urinary Catheter Management: [place]: Cath Placed During This Visit: yes, but has since been removed by the nurse Reason for Continuing Indwelling Catheter: Decision to DC Catheter Urinary Catheter Date of Insertion: 02/11/23 Urinary Catheter Time of Insertion: 07:05 Date Urinary Catheter Removed: 02/12/23 Time Urinary Catheter Discontinued: 05:05 Discharge Data Studies Completed and Pending Laboratory Results WBC 12.78 10^3/uL (3.29-11.43) H 02/11/23 20:19 RBC 3.28 10^6/uL (3.85-5.65) L 02/11/23 20:19 Hgb 9.40 g/dL (11.27-16.99) L 02/11/23 20:19 Hct 29.1 % (36-47) L 02/11/23 20:19 MCV 88.7 fl (85-98) 02/11/23 20:19 MCH 28.7 pg (27-33) 02/11/23 20:19 MCHC 32.3 g/dL (30-55) 02/11/23 20:19 RDW 12.9 % (12.1-15.1) 02/11/23 20:19 Plt Count 170 10^3/cmm (157-399) 02/11/23 20:19 MPV 9.3 fL (7.4-10.4) 02/11/23 20:19 Neut % (Auto) 63.6 % 02/11/23 05:27 Lymph % (Auto) 25.9 % 02/11/23 05:27 [place] % (Auto) 8.5 % 02/11/23 05:27 Eos % (Auto) 1.0 % 02/11/23 05:27 Baso % (Auto) 0.5 % 02/11/23 05:27 Neut # (Auto) 7.22 10^3/uL (1.8-7.7) 02/11/23 05:27 Lymph # (Auto) 2.9 10^3/uL (0.8-4.8) 02/11/23 05:27 [place] # (Auto) 1.0 10^3/uL (0.2-0.9) H 02/11/23 05:27 Eos # (Auto) 0.1 10^3/uL (0.0-0.8) 02/11/23 05:27 Baso # (Auto) 0.1 10^3/uL (0.0-0.1) 02/11/23 05:27 Nucleated RBC % (auto) 0 % 02/11/23 05:27 Nucleated RBCs # 0.0 /100WBC 02/11/23 05:27 Urine Opiates Screen Negative ng/mL (Negative) 02/11/23 05:27 Ur Barbiturates Screen Negative ng/mL (Negative) 02/11/23 05:27 Ur Phencyclidine Scrn Negative ng/mL (Negative) 02/11/23 05:27 Ur Amphetamines Screen Negative ng/mL (Negative) 02/11/23 05:27 U Benzodiazepines Scrn Negative ng/mL (Negative) 02/11/23 05:27 Urine Cocaine Screen Negative ng/mL (Negative) 02/11/23 05:27 U Marijuana (THC) Screen Negative ng/mL (Negative) 02/11/23 05:27 Blood Type O Positive 02/11/23 05:27 Rho(D) Type Positive 02/11/23 05:27 Antibody Screen Negative 02/11/23 05:27 Vitals Last Vital Signs Temp 97.3 F L 02/13/23 06:01 Pulse 69 02/13/23 06:01 Resp 18 02/13/23 03:41 BP 109/68 02/13/23 06:01 Pulse Ox 98 02/12/23 06:25 O2 Del Method Room Air 02/12/23 22:00 Discharge Plan Discharge Patient Disposition: Home Condition: Stable Prescriptions: New ibuprofen 800 mg Tablet 800 mg PO TID Qty: 45 0RF oxycodone-acetaminophen 5-325 mg Tablet 2 tab PO Q6H PRN (Reason: Moderate To Severe Pain) Qty: 28 0RF docusate sodium 100 mg Capsule 100 mg PO BID Qty: 14 0RF Continued methadone 5 mg Tablet 55 mg PO DAILY -lbwo fum,wi-elgvp-xpe 1 tab PO DAILY Discontinued famotidine [Pepcid] 20 mg Tablet 20 mg PO DAILY Discharge Orders: Discharge Order (Routine); Ordered 02/13/23 Ordered By: Shahriar Cortes Referrals: Shahriar Cortes MD [Primary Care Provider] - 02/18/23 Discharge Diet: Advance as tolerated Discharge Activity: Resume usual activity Patient Instructions: Depression (DC), Bleeding (DC), Preeclampsia and Eclampsia After Delivery (GEN), Hemorrhage (DC), OB - [place], OB Discharge Report, OB Food/Drug Interaction Guide, Opioid Safety, OB Home Care, OB Proud Parent Packet Discharge Attestations TRAIN CONTROL ELECTRONIC TECHNICIAN Time Spent in Discharge Care*: less than 30 min Coding Level of Care Code Acute Code for Chg Fwd Diagnoses 38 weeks gestation of Z3A.38 Status post Z98.891
[2023-02-13] MEDS: ferrous sulfate EC 325 mg Tablet PO (08:34)
[2023-02-13] MEDS: docusate sodium 100 mg Capsule PO (08:34)
[2023-02-13] MEDS: ibuprofen 800 mg tablet PO (08:34)
[2023-02-13] MEDS: prenatal vitamin Capsule 1 CAP PO (08:34)
[2023-02-13] MEDS: methadone 10 mg Tablet 55 MG PO (08:34)
[2023-02-13 08:41] VITALS: BP 114/76; PULSE 76; TEMP 36.9
== END 2023-02-13 14:09 | disposition home or self-care (01) | DRG 788 ==
PROVIDERS: Admitting Provider Family Medicine; Family Provider Family Medicine; PCP Family Medicine; Visit Provider Family Medicine
PROC: 10D00Z1 Extraction of Products of Conception, Low, Open Approach (ICD-10-PCS; CPT 59514; principal; 2023-02-11 07:00)
DX: O32.1XX0 Maternal care for breech presentation, not applicable or unspecified (principal); Z3A.38 38 weeks gestation of pregnancy; Z37.0 Single live birth; O99.320 Drug use complicating pregnancy, unspecified trimester; O75.89 Other specified complications of labor and delivery; F11.90 Opioid use, unspecified, uncomplicated; O77.8 Labor and delivery complicated by other evidence of fetal stress
CPT/HCPCS: 36415; 51702; 59025; 59409; 80306; 85025; 85027; 86850; 86900; 99211; J1885; J2274; J2405; J2765; J3010; J3490; J7120; J7121

== ENCOUNTER 2024-07-09 12:25 | Outpatient (CLI) | payer BC, MEDICAID, SELFPAY ==
[2024-07-09] VITALS (13 sets, daily range): BP systolic 97–125; BP diastolic 52–63; PULSE 82–100; TEMP 37.4; BMI 19.1
[2024-07-09 13:07] LABS: Bilirubin Urine Negative (Negative); Blood Urine Negative (Negative); Glucose Urine UA Negative (Normal); Ketones Urine 4+ (Negative); Leukocyte Esterase Urine Negative (Negative); Nitrate Urine Negative (Negative); Protein Urine Trace (Negative); Specific Gravity, Urine 1.024 (1.005-1.030); Urine Appearance Clear (CLEAR); Urine Color Yellow (Yellow); pH Urine 6.5 (5-7)
[2024-07-09 13:12] LABS: Bacteria Urine Trace /hpf; Hyaline Casts Urine 0-4 /lpf; RBC Urine 0-2 /hpf (0-2); WBC Urine 0-5 /hpf (0-5)
[2024-07-09] MEDS: promethazine 25 mg/mL SDV 1 mL IM (14:06)
[2024-07-09] MEDS: sodium chloride 0.9% 1,000 ML 999 ML IV (14:49)
== END 2024-07-09 15:50 | disposition home or self-care (01) ==
LOC: OPOB 12:29 → OBGYN 12:30
PROVIDERS: PCP Family Medicine; Visit Provider Family Medicine
DX: O21.9 Vomiting of pregnancy, unspecified (principal); Z3A.00 Weeks of gestation of pregnancy not specified; R50.9 Fever, unspecified
CPT/HCPCS: 36415; 81001; 96372; 99211; J2550; J7030

== ENCOUNTER 2024-10-31 09:34 | Inpatient (IN) | payer BC, MEDICAID, SELFPAY ==
--- OUTSIDE RECORDS SUMMARY | 2017-07-17 11:00 | XMS_ITS | Continuity of Care Document ---
Author Organization [facility] Address [address] [id number][place] [address] Phone Care Team Providers Care Project Manager Retail Name Role Phone Young Lopez DDS Unavailable Unavailable Allergies, Adverse Reactions, Alerts Substance Reaction Status Criticality PENICILLIN Active No Information Medications Medication Instructions Dosage Effective Dates (start - stop) Status Comments Vitamins and Minerals tablet - Active Procedures Procedure Date Bitewings Four Films Intraoral Periapical First Film Intraoral Periapical Each Additional Film Intraoral Periapical Each Additional Film Intraoral Periapical Each Additional Film Intraoral Periapical Each Additional Film Intraoral Periapical Each Additional Film Intraoral Periapical Each Additional Film Comprehensive Oral Evaluatio n New Or Established EDR Approval Note Advance Directives Directive Yes / No Effective Date File Name No Information Encounters Encounter Description Practice Location Reason(s) For Visit Diagnoses Date Provider Providers Copied on Encounter [facility], [id number], [id number], [place] tel:[phone] [facility] Encounter for dental exam and cleaning w/o abnormal findings John Vidal. [address] [place], [address], [place]. tel:[phone] Referring Provider: Young Taylor, [address] [place], [address]. tel:[phone] Family History Family Member Type Diagnosis Age At Onset No Information Payers Payer name Insurance type Covered republican ID Jeannine griggs(alcides) Francie Dover [id number] Social History Type Description Quantity Date Captured Comments Alcohol Use Details No Caffeine Use Details Unknown Tobacco Use Status Current non-smoker 18 Smoking Status Never smoker Non-Smoking Tobacco Use Details : No Details Available : No Details Available Sex Female Chief Complaint And Reason For Visit No Information Reason For Referral Reason For Referral No Information History Of Present Illness Encounter Date Complaint History Of Prese nt Illness No Information Functional Status Date Functional Assessmen t No Information Instructions Date Instruction Additional Infor sherley Lifestyle education Related to D ental Examination Assessments Type Assessment Date No Information Patient Care Teams Name Effective Dates (start - stop) Status Members No Information
[2024-10-31] VITALS (71 sets, daily range): BP systolic 89–118; BP diastolic 52–86; PULSE 69–126; RESP 15–17; TEMP 36.6; O2SAT 96–100; BMI 20.9
[2024-10-31 09:35] LABS: Nitrazine Paper, PH Positive
[2024-10-31 09:50] LABS: Basophils # 0.1 10^3/uL (0.0-0.1); Basophils % 0.5 %; Eosinophils # 0.1 10^3/uL (0.0-0.8); Eosinophils % 0.5 %; Hematocrit 37.3 % (36-47); Lymphocytes # 2.6 10^3/uL (0.8-4.8); Mean Corpuscular HGB Conc 32.4 g/dL (30-55); Mean Corpuscular Hemoglobin 27.9 pg (27-33); Mean Corpuscular Volume 86.1 fl (85-98); Mean Platelet Volume 9.2 fL (7.4-10.4); Monocytes # 0.7 10^3/uL (0.2-0.9); Monocytes % 5.5 %; Neutrophils # 9.61 10^3/uL (1.8-7.7); Neutrophils % 72.9 %; Nucleated Red Blood Cells % 0 %; Platelet Count 210 10^3/cmm (157-399); Red Blood Count 4.33 10^6/uL (3.85-5.65); Red Cell Distribution Width 12.9 % (12.1-15.1); White Blood Count 13.17 10^3/uL (3.29-11.43)
[2024-10-31] MEDS: lactated ringers 1,000 ML 999 ML IV (09:56)
[2024-10-31] MEDS: famotidine 20 mg/2 mL INJ IVP (09:56)
[2024-10-31] MEDS: metoclopramide 5 mg/mL SDV 2 mL 10 MG IVP (09:56)
[2024-10-31] MEDS: citric acid-sodium citrate 30 mL UDC PO (09:56)
[2024-10-31] MEDS: clindamycin 900 MG/50 ML PREMIX 100 MG IV (09:57)
--- NOTE | 2024-10-31 10:03 | ANES.PREANE2 ---
Pre-Anesthetic Assessment Height/Weight: Height 1.5 m Weight 47.174 kg Pulse BP 88 117/86 10/31/24 09:13 10/31/24 09:13 Preop Diagnosis: Prior Was Beta Amalia taken within 24 hours: Yes Was Clonidine taken within 24 hours: Yes Social Smokes MJ daily, prior narcotic use, on Methadone Exam alert, oriented x 3, clear to auscultation bilaterally and regular rate & rhythm Airway Submandibular: within normal limits Cervical ROM: within normal limits Mallampati: Class II Comments: Comments: Poor dentition History/ROS No significant history except as noted and No significant complaints Pulmonary None reported CV/HEM None reported None reported Hepatic None reported GI None reported Metabolic None reported Musc/skel None reported Neuropsych None reported Anesthetic Plan ASA status: 2 Anesthesia: Anesthesia Evaluation and Regional (specify below) (SAB) Risk of > 500 ml blood loss (7ml/kg in children): No Medications/Allergies Home Medications ?Medication ?Instructions ?Recorded ?Confirmed ?Last Taken ?Type methadone 5 mg tablet 55 mg PO DAILY 02/11/23 07/07/24 02/11/23 04:30 History zizpyt81-ccke fum,xy-aaiwp-kkt 1 tab PO DAILY 02/11/23 07/07/24 02/10/23 08:00 History meloxicam 15 mg tablet 15 mg PO DAILY #20 tabs 07/07/24 07/07/24 Unknown Rx Allergies Allergy/AdvReac Type Severity Reaction Status Date / Time Penicillins Allergy ALGY-Anaphy Verified 11/26/21 16:04 laxis cillins Allergy Severe Anaphalaxis Uncoded 11/26/21 16:04 & rash Current Medications Generic Name Dose Route Start Last Admin Trade Name Freq PRN Reason Stop Dose Admin Lactated Ringer's 1,000 mls @ 999 mls/hr 10/31/24 09:33 10/31/24 09:56 Lactated Ringers IV 10/31/24 10:33 999 mls/hr .Q1H1M ONE Administration PFSH Anesthesia Family History Father Hypertension Social History Smoking and tobacco/nicotine status: former use of tobacco/nicotine Quit status (tobacco/nicotine): considering quitting Second hand smoke exposure: No Female Reproductive History : 3 Data Anesthesia 10/31/24 09:30 Short CBC 10/31/24 Range/Units 09:30 WBC 13.17 H (3.29-11.43) 10^3/uL Hgb 12.10 (11.27-16.99) g/dL Hct 37.3 (36-47) % MCV 86.1 (85-98) fl Plt Count 210 (157-399) 10^3/cmm Neut % (Auto) 72.9 % Neut # (Auto) 9.61 H (1.8-7.7) 10^3/uL
--- NOTE | 2024-10-31 10:12 | PM.OBGYHP ---
Providers/Chief Complaint Admitting Physician: Shahriar Cortes Primary Care Provider: Shahriar Cortes MD Chief Complaint: Ctx, Poss ROM HPI LEASING MANAGER History of Present Illness Chika Garces is a 24 year old 37 and 6-day female presenting with spontaneous rupture membranes. The patient has a history of a previous section and was scheduled to have a section at 39 weeks. She began having contractions earlier today, and recently had some vaginal drainage that made her wonder if she had broke her water. She came into the hospital where she was checked and found to be nitrazine positive and grossly ruptured. Present Details : 3 Para: 1 Review of Systems General: Reports: 10 or more systems reviewed and unremarkable except in HPI and below Const: Reports: fatigue; Denies: fever(s) Eyes: Denies: change in vision Card: Denies: chest pain Musc: Reports: back pain Jacques/Lymph: Denies: easy bruising Medications/Allergies Home Medications ?Medication ?Instructions ?Recorded ?Confirmed ?Last Taken ?Type methadone 5 mg tablet 30 mg PO DAILY 02/11/23 10/31/24 10/31/24 08:00 History axdshz27-omwi fum,dy-mugex-yra 1 tab PO DAILY 02/11/23 10/31/24 02/10/23 08:00 History ondansetron HCl 4 mg tablet 4 mg PO Q6H 10/31/24 10/31/24 10/31/24 08:00 History Allergies Allergy/AdvReac Type Severity Reaction Status Date / Time Penicillins Allergy ALGY-Anaphy Verified 11/26/21 16:04 laxis cillins Allergy Severe Anaphalaxis Uncoded 11/26/21 16:04 & rash PFSH LEASING MANAGER PFSH: Family History Father Hypertension Social History (Updated 10/31/24 @ 10:16 by Shahriar Cortes MD) Smoking and tobacco/nicotine status: former use of tobacco/nicotine Quit status (tobacco/nicotine): considering quitting Second hand smoke exposure: No Substance/Drug Use: former Former substance use details: Currently on methadone and history of marijuana use during her . Vitals/I&O/Wt Last Vital Signs Pulse 88 10/31/24 09:13 Resp 17 10/31/24 08:55 BP 117/86 10/31/24 09:13 Weight last 48 hrs Weight 104 lb Physical Exam Const: COMMON NORMALS: patient oriented x3 and alert HENMT: COMMON NORMALS: moist oral mucous membranes HEAD & SCALP: normal to inspection Chest: COMMONS NORMALS: normal inspection of the chest Resp: COMMON NORMALS: clear to auscultation bilaterally AUSCULTATION: clear to auscultation bilaterally Cardio: COMMON NORMALS: regular rate and regular rhythm RATE: regular rate RHYTHM: regular rhythm GI: INSPECTION: Yes normal to inspection and Yes other (Gravid) Extremity: COMMON NORMALS: normal to inspection GENERAL: Yes edema (Trace) Neuro: COMMON NORMALS: patient oriented x3, moves all extremities and no sensory deficits noted SENSORIUM/ORIENTATION: Yes alert Psych: COMMON NORMALS: mental status grossly normal Skin: COMMON NORMALS: no rashes or lesions noted GENERAL SKIN EXAM: no rashes or lesions noted Data 10/31/24 09:30 Results Labs OB ([facility]): Obstetrics US/Biophysical Profile 02/08/23 Blood Type O Positive 02/11/23 Antibody Screen Negative 02/11/23 Hct, (36-47) 37.3 % Today Hgb, (11.27-16.99) 12.10 g/dL Today Rho(D) Type Positive 02/11/23 Plt Count, (157-399) 210 10^3/cmm Today Urine Opiates Screen, (Negative) Negative ng/mL 02/11/23 Ur Barbiturates Screen, (Negative) Negative ng/mL 02/11/23 Ur Phencyclidine Scrn, (Negative) Negative ng/mL 02/11/23 Ur Amphetamines Screen, (Negative) Negative ng/mL 02/11/23 U Benzodiazepines Scrn, (Negative) Negative ng/mL 02/11/23 Urine Cocaine Screen, (Negative) Negative ng/mL 02/11/23 U Marijuana (THC) Screen, (Negative) Negative ng/mL 02/11/23 A&P Assessment and plan (1) 37 weeks gestation of : I anticipate a lower transverse section. I once again discussed the risks with the patient and her significant other. Dr. Hammond will be the automotive service advisor. Dr. Ojeda is covering this weekend. (2) History of section complicating : (3) Spontaneous rupture of membranes: (4) Methadone use: PDMP PDMP Reviewed: Not Reviewed Attestations Medical Necessity Statement*: Routine low-transverse section and post section care Coding Level of Care Code Acute Code for Chg Fwd Diagnoses 37 weeks gestation of Z3A.37 History of section complicating O34.219 Spontaneous rupture of membranes Methadone use F11.90
[2024-10-31 10:30] LABS: Amphetamines Screen Urine Negative (Negative); Barbiturates Screen Urine Negative (Negative); Benzodiazepines Screen Urine Negative (Negative); Cocaine Screen Urine Negative (Negative); Opiate Screen Urine Negative (Negative); PCP Screen Urine Negative (Negative); THC Screen Urine Positive (Negative)
[2024-10-31] MEDS: BUPivacaine 0.5% INJ 30 mL INJECTION (11:00)
[2024-10-31] MEDS: tranexamic acid 1,000 MG/100 ML PREMIX 600 MG IV (11:14)
[2024-10-31] MEDS: SODIUM CHLORIDE 0.9% IV (11:15)
[2024-10-31] MEDS: GENTAMICIN IV (11:15)
--- NOTE | 2024-10-31 11:51 | P.OP_ITS ---
Operative Report Date of procedure: October 31, 2024 Pre-op diagnosis: 1. 24-year-old 3 para 1-0-1-1 at 37 weeks and 6 days presenting with spontaneous rupture membranes 2. History of section planning a repeat section Post-op diagnosis: Status post repeat low-transverse section Procedure done: Repeat low-transverse section Specimens removed/disposition: 1. Female infant with a weight of and Apgars of 2. Placenta with a three-vessel cord delivered intact Surgeon: Shahriar Cortes MD Estimated blood loss (mL): 1,000 Complications: None Procedure: The patient was brought back to the operating room where she was prepped and draped in the usual sterile fashion. Spinal anesthesia was attempted but was not adequate. As result, the an anesthesia provider augmented the anesthesia with IV medications. After she was more sedated, we proceeded with the procedure. A lower transverse skin incision was then made with a #10 blade. I then dissected down to the underlying subcutaneous tissue until arriving at the prerectal fascia. The fascia was then nicked with the scalpel bilaterally. The fascial incisions were then carried laterally with Abel scissors. Attention was then turned to the superior aspect of the incision which was grasped with kochers and tented up away from the underlying rectus abdominis muscles. The muscles were then dissected away from the fascia manually, and later with Abel scissors. Attention was then turned to the inferior aspect of the incision, and the fascia was dissected away from the underlying muscle in similar fashion. The rectus abdominis muscles were then spread manually. The peritoneum was entered manually. Excellent visualization of the uterus was noted. A lower transverse uterine incision was then made with a #10 blade. Upon arriving at the intrauterine cavity, the uterine incision was then extended manually. The infant was noted to be in vertex position. The baby was delivered without difficulty. After delivery of the head, the mouth and nose were suctioned at the site of the incision. There was no meconium. There was no nuchal cord. The baby was then completely delivered and placed on the abdomen. The cord was cut and clamped. The baby was then handed to the waiting nurse. The placenta was removed intact. The uterus was externalized. The intrauterine cavity was cleansed of any remaining debris. The uterine incision was reapproximated in 2 layers. The first layer was performed with 0 Vicryl in a running locked stitch. The second layer was an imbricating stitch also using 0 Vicryl. The uterus was still somewhat boggy, and there was more intrauterine bleeding than usual prior to the stitches being placed. As such TXA was also given. The uterus became palpably firmer and the bleeding seemed improved. The uterus was replaced into the abdomen. The peritoneum was then irrigated with warm saline. I reexamined the uterine i ncision and found it to be hemostatic. The rectus abdominis muscles were then reapproximated using 0 Vicryl in a running stitch. The fascia was then reapproximated using 0 Vicryl in running stitch. The skin was reapproximated using madai. A sterile dressing was placed. All counts were correct x2. Both the mother and baby were in stable condition.
[2024-10-31] MEDS: ketorolac 30 mg/mL INJ IVP ×2 (13:06→17:49)
[2024-10-31] MEDS: dextrose 5%-lactated ringers 1,000 ML 125 ML IV (14:54)
--- OUTSIDE RECORDS SUMMARY | 2024-10-31 15:51 | XMS_ITS | Continuity of Care Document ---
Author Organization [facility] Morton [place]og[place]ut [facility], LNirav, [facility] ([facility]) Address [address] [place] [address] Care Team Providers Care Bus Steward Name Role Phone NINO CORTES Primary Care Provider Unavaila ble Assessment No assessment recorded. Plan of Treatment Reminders Order Date Submit Date Provider Last Modified By Organization Details Last Modified Time Details Appointments RETURN OB 2024 12:50P M Nino Cortes MD Not available Not available Not available RETURN OB 2024 01:50P M Nino Cortes MD Not available Not available Not available RETURN OB 2024 12:50P M Nino Cortes MD Not available Not available Not available Lab None recorded . Referral None recorded . Procedures None recorded . Surgeries None recorded . Imaging None recorded . Medication Orders None recorded . Patient TargetsNo targets recorded. Patient InstructionsNo instructions recorded. Reason for Referral None Reported. Results Created Date Observation Date Name Description Value Unit Range Abnormal Flag Note LastModifiedBy Organization Detail LastModifiedTime 07/02/1907/01/2024 US, obste tric, 1st trime ster No observ ation record ed. [address] [place], [address], 07/12/2024 16:06:59 10/13/1909/29/2024 US, obste tric, 3rd trime ster No observ ation record ed. [email or web address] Not Available 10/13 08:55:54 Result Notes None recorded. Problems Name Problem SNOMED Code Status Onset Date Resolution Date Notes Provider Name and Address Organization Details Recorded Time Adenoide ctomy planned [id number] Completed 201604/24/2017 Adenoide ctomy - Status is Inactive ; 04/24/20 5:04PM by Tessa Hudson CMT, Annotati on/Roxane dum; Promoted ; acuity set as *; Not Available [facility] 03:10:15 Finding of body mass index 176769438 Completed 202208/26/2024 BODY MASS INDEX (BMI) LESS THAN OR EQUAL TO 19 IN ADULT; Recorded 09/10/19 12:36PM by Mary Jo Valle RN, Office Visit; Promoted ; acuity set as *; BMI LESS THAN 19,ADULT ; Recorded 07/04/19 6:57AM by Itzel Strong LPN, Office Visit; Promoted ; acuity set as *; ; Start Date : 07/04/19 SONIYA felix [facility] 5 13:41:26 Normal pregnanc y in [facility] [id number] 4106 Completed 2022 Nino Cortes MD [address] [place] [address], [phone] , [facility], L.[facility].C[facility]ud 3 06:59:26 Normal pregnanc y in [facility] diogo 96178921799 4106 Active 2022 SONIYA felix [facility] 5 13:41:31 Urinary tract infectio n in pregnanc y 098522787 Active 2024 MARY JO felix [facility] 5 14:12:40 Problem Notes None recorded. Procedures Surgical History Date Name Laterality Status Provider Name and Address Organization Details Recorded Time 023 section [facility] 02/18/2023 14:53:47 023 Date of Last Pap Smear completed [facility] [place] 02/18/2023 14:52:25 023 sampling of cervix for Papanicolaou smear completed [facility] [place] 08/26/2024 13:43:06 [facility] 13:43:38 Imaging Results None recorded. Procedure Notes None recorded. Medical Equipment None Reported. Allergies Allergen ID Allergen Name Allergen Category Reaction Reaction Severity Criticality Documentation Date Start Date Code Code System Note Provider Name and Address Organization Details Recorded Time 1660 Product containin g penicilli n (product) medicatio n Not available Not available Not available 10/07/2022 33641 8001 SN[facility]ED [facility] [place] 13:26:10 [address]7512 penicilli n G sodium medicatio n anaphylax is Not available Not available 01/18/2023 9900 RxNorm React ion: Anaph ylaxi s, Diffi culty breat rayna, Diffi culty swall owing ; Comme nt: Recor ded 09/09 12:36 PM by Joanne Valle RN, Offic e Visit ; Promo venancio; Sanjiv olson ce: *; Reaso n: Drug aller gy; ; Not Available [facility] 3 02:28:37 21356 amoxicill in medicatio n Not available Not available Not available 07/29/2024 723 RxNorm SONIYA Mckeon [facility], LArnaud[facility]ArnaudCArnaud 08:44:30 Medications Name Sig Start Date Stop Date Status Note LastModified by Organization Details LastModified Time venlafaxi ne ER 75 mg capsule,e xtended release 24 hr take 1 capsule BY MOUTH EVERY DAY 05/06 completed Not Available Not Available Not Available azithromy vane 250 mg tablet TAKE 2 TABLETS BY MOUTH TODAY, THEN TAKE 1 TABLET DAILY ON DAYS 2-5 10/07 completed Not Available Not Available Not Available ibuprofen 800 mg tablet TAKE 1 TABLET BY MOUTH THREE TIMES DAILY 03/31 completed Not Available Not Available Not Available methadone 10 mg tablet Take 1 tablet every 8 hours by oral route. active pt is taking 40mg QD Not Available Not Available Not Available meloxicam 15 mg tablet TAKE 1 TABLET BY MOUTH EVERY DAY 07/29 completed Not Available Not Available Not Available clindamyc in HCl 150 mg capsule take 1 capsule BY MOUTH THREE TIMES DAILY for 10 days 07/29 completed Not Available Not Available Not Available venlafaxi ne ER 150 mg capsule,e xtended release 24 hr take 1 capsule BY MOUTH DAILY 05/06 completed Not Available Not Available Not Available sulfameth oxazole 800 mg-trimet hoprim 160 mg tablet TAKE 1 TABLET BY MOUTH TWICE DAILY 07/29 completed Not Available Not Available Not Available oxycodone -acetamin ophen 5 mg-325 mg tablet TAKE 2 TABLETS BY MOUTH EVERY 6 HOURS NEEDED FOR moderate TO severe pain 03/31 completed Not Available Not Available Not Available famotidin e 20 mg tablet TAKE ONE TABLET BY MOUTH TWICE DAILY NEEDED 02/18 completed Not Available Not Available Not Available promethaz ine 25 mg tablet TAKE 1 TABLET BY MOUTH EVERY 6 HOURS NEEDED FOR NAUSEA AND VOMITING 05/06 completed Not Available Not Available Not Available bupropion HCl 75 mg tablet TAKE ONE TABLET BY MOUTH every morning FOR FOUR DAYS, THEN one IN THE MORNING AND afternoo n (6 hours apart) 10/07 completed Not Available Not Available Not Available docusate sodium 100 mg capsule take 1 capsule BY MOUTH TWICE DAILY 03/31 completed Not Available Not Available Not Available norethind deidra (contrace ptive) 0.35 mg tablet TAKE 1 TABLET BY MOUTH EVERY DAY 08/05 completed Not Available Not Available Not Available ondansetr on 4 mg disintegr ating tablet place ONE tablet ON TONGUE EVERY 6 HOURS NEEDED active Not Available Not Available No t Available escitalop raghu 10 mg tablet TAKE 1 TABLET BY MOUTH EVERY DAY active Not Available Not Available No t Available escitalop raghu 20 mg tablet TAKE 1 TABLET BY MOUTH ONCE DAILY IN THE MORNING 10/07 completed Not Available Not Available Not Available nitrofura ntoin monohydra te/macroc rystals 100 mg capsule take 1 capsule BY MOUTH EVERY TWELVE HOURS FOR 7 DAYS 10/21 completed Not Available Not Available Not Available methadone QD take with 5mg 02/18 completed 0; Recorded 09/10/19 12:36PM by Mary Jo Valle, RN, Office Visit; Not Available Not Available Not Available 02/18 completed Not Available Not Available Not Available Miralax daily 02/18 completed Recorded 08/12/19 9:23AM by Mary Jo Valle, RN, Office Visit; Refill Quantity : 1; Applicat or; Not Available Not Available Not Available Vitamin QD active 0; Recorded 09/10/19 12:36PM by Mary Jo Valle RN, Office Visit; Not Available Not Available Not Available Rosalva 0.25 mg-0.035 mg tablet TAKE 1 TABLET BY MOUTH EVERY DAY 05/06 completed Not Available Not Available Not Available Vitals Date Recorded Body height Body mass index (BMI) Body weight Respiratory rate Body temperature Heart rate Oxygen saturation Oxygen saturation in Arterial blood by Pulse oximetry Systolic blood pressure Diastolic blood pressure Provider Name and Address Organization Details Last Updated DateTime 149.23 cm 21 kg/m2 61037.4 1 g 16 /min 98.2 [degF] 80 /min 98 % 98 % 104 mm[Hg] 60 mm[Hg] MARY JO VALLE [facility] 15:19:17 Social History Question Answer Notes LastModified by Organizat ion Details LastModified Time Tobacco Smoking Status Former Smoker SONIYA felix [facility] 01/21/2023 09:35:41 What Is Your Level Of Alcohol Consumption? None Information not available 09/13/2024 Which Illicit Or Recreational Drugs Have You Used? Marijuana Information not available 09/13/2024 What Is Your Relationship Status? Domestic Partner [email or web address] Information not available 01/21/2023 How Much Tobacco Do You Smoke? No Information not available 09/13/2024 Do You Use Any Illicit Or Recreational Drugs? Yes Information not available 09/13/2024 Sex: Unknown Functional Status None recorded. Mental Status None recorded. Family History Relationship Description Onset Age of this Age Resolved Age Notes LastModified by Organization Details LastModified Time Father Hypertensive disorder [email or web address] Not available 09:35:23 Medical History Condition Response Coronary Artery Disease N Gout N Other N Blood Diseases N Kidney Stones N Hyperthyroidism N Blood Transfusion N Breast Cancer N COPD N Lung Disease N Hypothyroidism N Depression N Defects or Inherited Disease N Developmental or Behavioral Disorders N Breast Problem N Difficulty Swallowing N Anesthesia Complications N Meniere's disease N Anxiety Disorder Y Muscle, Joint, or Bone Problems N Vision or Eye Problems N Arthritis N Polyps N Infertility N Cancer N Varicosities N Stroke N Endometriosis N Bladder or Kidney Problems N High Cholesterol N Liver Disease N Headaches Y Fibromyalgia N Kidney Disease N Allergies/Hayfever N Heart Problems N Ear or Hearing Problems N Hospitalizations N Thyroid Problems N GI Problems N ADD/ADHD N Skin Problems N Eating Disorder N Anemia N Constipation Y Mental Illness N Ovarian Cancer N Diabetes N Bedwetting N Seizures/Epilepsy N Tuberculosis N Eczema N Diverticulitis N Abuse/Domestic Violence N Asthma N Reflux/GERD N Hepatitis N Heart Disease N Pulmonary Embolism N Pre-Eclampsia N Hypertension N Chronic Ear Infections Y Osteoporosis N Chicken Pox N Autism Spectrum Disorder (ASD) N Thrombophilias N Gynecological History Statement/Question Response Abnormal Pap N Date of Last Pap Smear 08/12/2022 Obstetrics History GPAL:G 3 P 1 0 1 1 Type Value Full Term 1 Spontaneous 1 Living 1 Total 3 Immunizations Vaccine Type Date Status Note Provider Nam e and Address Organization Details Recorded Time Influenza, split virus, trivalent, preservative 7 completed Not Available [facility] 08/05/2023 15:43:07 Influenza, split virus, trivalent, preservative 8 completed Not Available [facility] 08/05/2023 15:43:07 HPV9 6 completed [facility] 12/02/2022 12:00:18 HPV9 9 completed [facility] 12/02/2022 12:00:18 HPV9 7 completed TREBA NEUSCHWANDER null, [facility] 12/02/2022 12:00:18 IPV 1 completed TREBA NEUSCHWANDER null, [facility] 12/02/2022 12:00:18 IPV 1 completed TREBA NEUSCHWANDER null, [facility] 12/02/2022 12:00:18 IPV 5 completed TREBA NEUSCHWANDER null, [facility] 12/02/2022 12:00:18 IPV 0 completed TREBA NEUSCHWANDER null, [facility] 12/02/2022 12:00:18 MMR 1 completed TREBA NEUSCHWANDER null, [facility] 12/02/2022 12:00:18 MMR 5 completed TREBA NEUSCHWANDER null, [facility] 12/02/2022 12:00:18 Tdap 5 completed TREBA NEUSCHWANDER null, [facility] 12/02/2022 12:00:18 varicella 1 completed TREBA NEUSCHWANDER null, [facility] 12/02/2022 12:00:18 Hep B, unspecified formulation 0 completed TREBA NEUSCHWANDER null, [facility] 12/02/2022 12:00:18 Hep B, adolescent/high risk 1 completed TREBA NEUSCHWANDER null, [facility] 12/02/2022 12:00:18 Hep B, adolescent/high risk infant 0 completed TREBA NEUSCHWANDER null, [facility] 12/02/2022 12:00:18 Hep A, ped/adol, 2 dose 6 completed TREBA NEUSCHWANDER null, [facility] 12/02/2022 12:00:18 Hep A, ped/adol, 2 dose 7 completed TREBA NEUSCHWANDER null, [facility] 12/02/2022 12:00:18 Hib (PRP-T) 1 completed TREBA NEUSCHWANDER null, [facility] 12/02/2022 12:00:18 Hib (PRP-T) 1 completed TREBA NEUSCHWANDER null, [facility] 12/02/2022 12:00:18 Hib (PRP-T) 1 completed TREBA NEUSCHWANDER null, [facility] 12/02/2022 12:00:18 Hib (PRP-T) 0 completed TREBA NEUSCHWANDER null, [facility] 12/02/2022 12:00:18 meningococcal MCV4P 6 completed TREBA NEUSCHWANDER null, [facility] 12/02/2022 12:00:18 DTaP 1 completed TREBA NEUSCHWANDER null, [facility] 12/02/2022 12:00:18 DTaP 2 completed TREBA NEUSCHWANDER null, [facility] 12/02/2022 12:00:18 DTaP 1 completed TREBA NEUSCHWANDER null, [facility] 12/02/2022 12:00:18 DTaP 5 completed TREBA HAIMSCHWANDER null, [facility] [place] 12/02/2022 12:00:18 DTaP 0 completed TREBA NEUSCHWANDER null, [facility] [place] 12/02/2022 12:00:18 Past Encounters Encounter ID Performer Location Encounter Start Date Encounter Closed Date Diagnosis/Indication Diagnosis SNOMED-CT Code Diagnosis ICD10 Code Diagnosis Note [id number] Nino Cortes MD [facility] ([facility]) [address] [place] [phone] 09/28/2024 13:42:22 09/28/2024 14:58:25 Normal in multigravida [id number] 26234 Z34.82 Gestation period, 33 weeks 89275301 Z3A.33 Heartburn 76611805 R12 [id number] Nino Cortes MD [facility]) [address] [place] [address] [phone] 09/29/2024 08:53:11 09/30/2024 13:44:23 [id number] Nino Cortes MD [facility] ([facility]) [address] [place] [address] [phone] 10/21/2024 13:27:18 10/22/2024 09:20:37 Normal in multigravida 7606164927 42594 Z34.82 Gestation period, 36 weeks 57271138 Z3A.36 Nausea and vomiting in 6138652404 O21.9 [id number] Nino Cortes MD [facility] ([facility]) [address] [place] [phone] 10/28/2024 14:41:56 10/28/2024 15:45:19 Normal in multigravida 6837328604 29954 Z34.82 Gestation period, 37 weeks 52874014 Z3A.37 Health Concerns Section Related Observation LastModified by Organization Detai ls LastModified Time None Recorded Concern Status LastModified by Organization Details LastModified Time None Recorded Payers Encounter Date Sequence Insurance Name Policy Number Policy Salazar Covered Member ID Salazar Member ID Guarantor Name 10/28/2024 1 [employer] [place] ([place]PLAC[place] - HMO) [id number] Chika Pascual Mili [id number] Chika Garces Notes Date Note Type Note Provider Name and Address Organization Details Recorded Time 10/28/2024 text/html jr ob routineRep orted bypatient.Associated Symptoms:no contractions; normal movement; no bleeding; no vaginal/vulvar itching or irritation; no dysuria; no frequency; no urgency; no hematuria; no fever; no emesis; no diarrhea/loose stool; no edema; no dizziness; no breathlessness;abdomi nal pain(upper abd tender to touch);cramping;vagin al discharge;nausea;cons tipation;headacheNote s:fatigue, acid reflux, vaginal pressureDenies any tobacco, alcohol use. Pt is smoking Marijuana daily Nino Cortes MD [address] [place] [address], [phone] 10/28/2024 15:44:03 OBGyn Episode Ob Episode Information Episode Created Date Number of Fetuses Patient Bloodtype Patient rh Status Prepregnancy Weight lbs Domestic Partner Domestic Partner Phone Father Name Traffic Control Supervisor Status 05/06/20 24 1 O Positive Treasure Pandey OPEN Fetus Data First Name Last Name Admitted to NICU Weight (g) Sex Living Outcome Pediatric Complications Fetus ID Race Codes Race Delivery Type [id number] Zeeshan Calculation Initial Zeeshan Date Initial Exam Date Initial Exam Provider Initial Ultrasound Date Last Menstrual Period Date Ultra Sound Weeks Gestation 11/15/2024 05/06/2024 05/11/2024 02/09/2024 13 Eighteen To Twenty Week Zeeshan Update Ultra Sound Date Fundal Height At Umbil Quickening Date Ultra Sound Latest Weeks Gestation Final Zeeshan Confirmed By Final Zeeshan Confirmed Date Final Zeeshan Date Ultra Sound Latest Days Gestation 0 0 Pre-frantz Flowsheet Flowsheet Date 05/06/2024 Quiroz Score Blood Edema Fundus Height Fundus Units Glucose Ketones Leukocytes Nitrite Labor Signs Protein Cervic Dilation Cervic Effacement Cervic Station none trace Negative neg Type Weight in lbs Pre/Post Dialysis Refused Weight 95.7958655108226 BP Diastolic BP Location Tested BP Systolic BP Type 68 R arm 114 sitting Fetus Heart Rate Present A 167 Present Fetus Movement Comments Flowsheet Date 05/11/2024 Quiroz Score Blood Edema Fundus Height Fundus Units Glucose Ketones Leukocytes Nitrite Labor Signs Protein Cervic Dilation Cervic Effacement Cervic Station Type Weight in lbs Pre/Post Dialysis Refused BP Diastolic BP Location Tested BP Systolic BP Type Fetus Heart Rate Present Fetus Movement Comments u/s on 05/11/24, ZEESHAN 11/15/24 , EGA 13.1 Flowsheet Date 06/04/2024 Quiroz Score Blood Edema Fundus Height Fundus Units Glucose Ketones Leukocytes Nitrite Labor Signs Protein Cervic Dilation Cervic Effacement Cervic Station Type Weight in lbs Pre/Post Dialysis Refused 92.7401032336748 BP Diastolic BP Location Tested BP Systolic BP Type 60 112 Fetus Heart Rate Present A 156 Fetus Movement A No Comments NOB, n/v, fatigue, anxiety, cramping, headaches. Cough x1 wk Flowsheet Date 06/07/2024 Quiroz Score Blood Edema Fundus Height Fundus Units Glucose Ketones Leukocytes Nitrite Labor Signs Protein Cervic Dilation Cervic Effacement Cervic Station Type Weight in lbs Pre/Post Dialysis Refused BP Diastolic BP Location Tested BP Systolic BP Type Fetus Heart Rate Present Fetus Movement Comments Healthy Blue RA completed Flowsheet Date 07/01/2024 Quiroz Score Blood Edema Fundus Height Fundus Units Glucose Ketones Leukocytes Nitrite Labor Signs Protein Cervic Dilation Cervic Effacement Cervic Station Type Weight in lbs Pre/Post Dialysis Refused BP Diastolic BP Location Tested BP Systolic BP Type Fetus Heart Rate Present Fetus Movement Comments u/s on 07/01/24, ZEESHAN 11/15/24, EGA 20.3, vertex, Placenta posterior. No previa or abruption. Unremarkable screening survey of anatomy Flowsheet Date 07/29/2024 Quiroz Score Blood Edema Fundus Height Fundus Units Glucose Ketones Leukocytes Nitrite Labor Signs Protein Cervic Dilation Cervic Effacement Cervic Station 24 cm none none Negative neg Type Weight in lbs Pre/Post Dialysis Refused 96.1813665247189 BP Diastolic BP Location Tested BP Systolic BP Type 60 110 sitting Fetus Heart Rate Present A 156 Present Fetus Movement A Yes Comments fatigue, heartburn, breast t enderness, comstipation, anxiety, Flowsheet Date 08/26/2024 Quiroz Score Blood Edema Fundus Height Fundus Units Glucose Ketones Leukocytes Nitrite Labor Signs Protein Cervic Dilation Cervic Effacement Cervic Station 26 cm none trace neg Type Weight in lbs Pre/Post Dialysis Refused 96.3604742519420 BP Diastolic BP Location Tested BP Systolic BP Type 60 110 sitting Fetus Heart Rate Present A 144 Present Fetus Movement A Yes Comments anxiety, anger outbursts, na usea/vomiting, constipation, headache, fatigue. glucose ordered Flowsheet Date 09/13/2024 Quiroz Score Blood Edema Fundus Height Fundus Units Glucose Ketones Leukocytes Nitrite Labor Signs Protein Cervic Dilation Cervic Effacement Cervic Station 28 cm none 1+ Positive trace Type Weight in lbs Pre/Post Dialysis Refused 95.8651646127774 BP Diastolic BP Location Tested BP Systolic BP Type 64 110 Fetus Heart Rate Present A 164 Present Fetus Movement A Yes Comments n/v, fatigue, vaginal discha rge, dysuria Flowsheet Date 09/28/2024 Quiroz Score Blood Edema Fundus Height Fundus Units Glucose Ketones Leukocytes Nitrite Labor Signs Protein Cervic Dilation Cervic Effacement Cervic Station 29 cm none 1+ trace Type Weight in lbs Pre/Post Dialysis Refused Weight 104.842944430402 BP Diastolic BP Location Tested BP Systolic BP Type 68 R arm 122 Fetus Heart Rate Present A 140 Present Fetus Movement A Yes Comments upper abd pain, cramps, N/V, acid reflux Flowsheet Date 09/29/2024 Quiroz Score Blood Edema Fundus Height Fundus Units Glucose Ketones Leukocytes Nitrite Labor Signs Protein Cervic Dilation Cervic Effacement Cervic Station Type Weight in lbs Pre/Post Dialysis Refused BP Diastolic BP Location Tested BP Systolic BP Type Fetus Heart Rate Present Fetus Movement Comments u/s 09/29/24, ZEESHAN 11/22/24, EGA 32.2, vertex Flowsheet Date 10/21/2024 Quiroz Score Blood Edema Fundus Height Fundus Units Glucose Ketones Leukocytes Nitrite Labor Signs Protein Cervic Dilation Cervic Effacement Cervic Station 34 cm none trace Negative neg Type Weight in lbs Pre/Post Dialysis Refused Weight 102.478247240946 BP Diastolic BP Location Tested BP Systolic BP Type 64 120 sitting Fetus Heart Rate Present A 156 Fetus Movement A Yes Comments abdominal cramping, increase d discharge, nausea/vomiting, headache, fatigue, acid reflux, group B today Flowsheet Date 10/26/2024 Quiroz Score Blood Edema Fundus Height Fundus Units Glucose Ketones Leukocytes Nitrite Labor Signs Protein Cervic Dilation Cervic Effacement Cervic Station Type Weight in lbs Pre/Post Dialysis Refused BP Diastolic BP Location Tested BP Systolic BP Type Fetus Heart Rate Present Fetus Movement Comments Group B strep NegativeOB rec ords sent Flowsheet Date 10/28/2024 Quiroz Score Blood Edema Fundus Height Fundus Units Glucose Ketones Leukocytes Nitrite Labor Signs Protein Cervic Dilation Cervic Effacement Cervic Station 34 cm none 1+ trace Type Weight in lbs Pre/Post Dialysis Refused Weight 103.841809970557 BP Diastolic BP Location Tested BP Systolic BP Type 60 104 Fetus Heart Rate Present A 144 Present Fetus Movement A Yes Comments pelvic/ vaginal pressure, cr amps, nausea Menstrual History Last Menstrual Date Menses Monthly On Bcp Conception Prior Menses Frequency Hcg Plus Date Menarche Onset Age 0802/09/2024 Genetic Screening And Infection History Question Response Note Patient's Age Will Be 35 Years Or Older At Estim ated Date of Delivery false Thalassemia (Ukrainian, Indian, Mediterranean, Or Background): MCV < 80 false Neural Tube Defect (Meningomyelocele, Spina Bifi da, Or Anencephaly) false Congenital Heart Defect false Down Syndrome false Cristobal-Sachs (eg, Confucianist, Cajun, Yakut-[place]ulton) f alse Madeline Disease false Sickle Cell Disease Or Trait () false Hemophilia Or Other Blood Disorders false Muscular Dystrophy false Cystic Fibrosis false Hazel's Chorea false Intellectual Disability/Autism false If Yes, Was Person Tested For Fragile X? false Other Inherited Genetic Or Chromosomal Disorder false Maternal Metabolic Disorder (eg, Type 1 Diabetes , PKU) false Patient Or Baby's Father Had A Child With Defects Not Listed Above false Recurrent Loss, Or A Stillbirth false Medications (including Suppl ements, Vitamins, Herbs, OTC Drugs), Illicit/Recreational Drugs, Alcohol false If Yes, Agent(s) And Strength/Dosage false Any Other Genetic History false Live With Someone With TB Or Exposed To TB false Patient Or Partner Has History Of Genital Herpes false Rash Or Viral Illness Since Last Menstrual Perio d false History Of STD, Gonorrhea, Chlamydia, HPV, Syphi lis false Other Infection History false History of HIV false History of Hepatitis false Prior GBS-infected child false Hemoglobinopathy Or Carrier false Other Structural Defect false Recent Travel History Outside of Country false Mental Retardation/Autism false Delivery Information Delivery Date Delivery Type Labor Anesthesia Weeks Gestation Incision Type Labor Labor Length Hrs Delivered By Post Complications Tubal Sterilization Discharge Date Comments Discharge Information Feeding Method Contraceptive Method Maternal HG B and HCT Levels
--- OUTSIDE RECORDS SUMMARY | 2024-10-31 15:51 | XMS_ITS | Data Portability ---
Author Organization NOEMI Fontaine [facility] Address [address] [address] Care Team Providers Care Lug Loader Name Role Phone NINO ALMANZA Primary Care Provider Unavaila ble Assessment No assessment recorded. Plan of Treatment Reminders Order Date Submit Date Provider Last Modified By Organization Details Last Modified Time Details Appointments RETURN OB 2024 12:50P Dante Almanza MD Not available Not available Not available RETURN OB 2024 01:50P Dante Almanza MD Not available Not available Not available RETURN OB 2024 12:50P M Nino Almanza MD Not available Not available Not available Lab streptoco ccus group B, culture, unspecifi ed specimen 2024 025 [facility], [address] [place] [address], [address] [place], [address], 10/24/2024 08:55:12 drug test, urine 2024 025 [facility] [employer], [address] [place] [address] 248, [address], [place], [address], 09/16/2024 00:12:44 urinalysi s, complete 2024 025 [facility], [address], [place], [address], 09/13/2024 12:47:14 culture, urine 2024 025 [place] [facility], [address] [facility] [address], [address] [place], [address], 09/16/2024 00:12:44 Referral None recorded. Procedures None recorded. Surgeries None recorded. Imaging None recorded. Medication Orders ondansetr on 4 mg disintegr ating tablet 2024 [facility], [address] [place] [address], [address], 10/26/2024 16:19:23 ondansetr on 4 mg disintegr ating tablet 2024 025 [facility], [address] [place] [address], [address], 09/13/2024 18:48:40 Patient TargetsNo targets recorded. Patient InstructionsNo instructions recorded. Reason for Referral None Reported. Results Created Date Observation Date Name Description Value Unit Range Abnormal Flag Note LastModifiedBy Organization Detail LastModifiedTime 09/14/1909/13/2024 URINA LYSIS WITH MICRO color YELLOW Not Available [facility] [address] [facility] [address], [place], [address], 09/13/2024 12:47:14 09/14/19 25 09/13/2024 URINA LYSIS WITH MICRO clarity CLEAR Not Available [facility] [address] [facility] 1, [place], [address], 09/13/2024 12:47:14 09/14/19 25 09/13/2024 URINA LYSIS WITH MICRO glu NEGATI VE Not Available [facility] [address] [facility] 1, [place], [address], 09/13/2024 12:47:14 09/14/19 25 09/13/2024 URINA LYSIS WITH MICRO bili NEGATI VE Not Available [facility] [address] [facility] 1, [place], [address], 09/13/2024 12:47:14 09/14/19 25 09/13/2024 URINA LYSIS WITH MICRO ket 1+ abnormal Not Available [facility] [address], [place], [address], 09/13/2024 12:47:14 09/14/19 25 09/13/2024 URINA LYSIS WITH MICRO S.g 1.015 1.005- 1.025 Not Available [facility] [address], [place], [address], 09/13/2024 12:47:14 09/14/19 25 09/13/2024 URINA LYSIS WITH MICRO pH 7.5 5.0-7. 0 high Not Available [facility] [address], [place], [address], 09/13/2024 12:47:14 09/14/19 25 09/13/2024 URINA LYSIS WITH MICRO pro NEGATI VE Not Available [facility] [address], [place], [address], 09/13/2024 12:47:14 09/14/19 25 09/13/2024 URINA LYSIS WITH MICRO uro 0.2 Not Available [facility] [address], [place], [address], 09/13/2024 12:47:14 09/14/19 25 09/13/2024 URINA LYSIS WITH MICRO nit NEGATI VE Not Available [facility] [address], [place], [address], 09/13/2024 12:47:14 09/14/19 25 09/13/2024 URINA LYSIS WITH MICRO blo NEGATI VE Not Available [facility] [address] [facility] 1, [place], [address], 09/13/2024 12:47:14 09/14/19 25 09/13/2024 URINA LYSIS WITH MICRO zain 1+ abnormal Not Available [facility] [address], [place], [address], 09/13/2024 12:47:14 09/14/19 25 09/13/2024 URINA LYSIS WITH MICRO WBC 20-25 abnormal Not Available [facility] [address], [place], [address], 09/13/2024 12:47:14 09/14/19 25 09/13/2024 URINA LYSIS WITH MICRO RBC 0-1 Not Available [facility] [address] [facility] [address], [place], [address], 09/13/2024 12:47:14 09/14/19 25 09/13/2024 URINA LYSIS WITH MICRO epi cells 10-12 abnormal Not Available [facility] [address], [place], [address], 09/13/2024 12:47:14 09/14/19 25 09/13/2024 URINA LYSIS WITH MICRO bacteria 1+ MIXED WILLIAM abnormal Not Available [facility] [address] [facility], [place], [address], 09/13/2024 12:47:14 09/14/19 25 09/13/2024 URINA LYSIS WITH MICRO other NG Not Available [facility] [address], [place], [address], 09/13/2024 12:47:14 09/09/19 25 09/08/2024 CBC WBC 10.8 x10 4.0-10 .5 high Not Available [facility] [address], [place], [address], 09/08/2024 10:41:21 09/09/19 25 09/08/2024 CBC RBC 3.81 x10 3.50-5 .50 Not Available [facility] [address] [facility] 1, [place], [address], 09/08/2024 10:41:21 09/09/19 25 09/08/2024 CBC HGB 11.2 g/dL 12.0-1 6.0 low Not Available [facility] [address] [facility] 1, [place], [address], 09/08/2024 10:41:21 09/09/19 25 09/08/2024 CBC HCT 34.4 % 37.0-4 7.0 low Not Available [facility] [address] [facility] 1, [place], [address], 09/08/2024 10:41:21 09/09/19 25 09/08/2024 CBC MCV 90.3 fL 80.0-9 9.9 Not Available [facility] [address] [facility] 1, [place], [address], 09/08/2024 10:41:21 09/09/19 25 09/08/2024 CBC MCH 29.4 pg 27.0-3 2.0 Not Available [facility] [address] [facility] 1, [place], [address], 09/08/2024 10:41:21 09/09/19 25 09/08/2024 CBC MCHC 32.6 g/dL 32.0-3 6.0 Not Available [facility] [address] [facility] 1, [place], [address], 09/08/2024 10:41:21 09/09/19 25 09/08/2024 CBC RDW 12.5 % 11.5-1 4.5 Not Available [facility] [address] [facility] [address] [address], [place], [address], 09/08/2024 10:41:21 09/09/19 25 09/08/2024 CBC plt 172.6 x10 140.0- 451.0 Not Available [facility] [address] [facility], [place], [address], 09/08/2024 10:41:21 09/09/19 25 09/08/2024 CBC lymphocytes % 19.7 % 20.0-5 0.0 low Not Available [facility] [address] [address], [place], [address], 09/08/2024 10:41:21 09/09/19 25 09/08/2024 CBC granulcytes % 74.0 % 30.0-7 0.0 high Not Available [facility] [address] [address], [place], [address], 09/08/2024 10:41:21 09/09/19 25 09/08/2024 CBC monocytes % 5.5 % 2.0-16 .0 Not Available [facility] [address] [address], [place], [address], 09/08/2024 10:41:21 09/09/19 25 09/08/2024 CBC granulcytes# 8.0 x10 Not Zulema ilable [facility] [address] [address], [place], [address], 09/08/2024 10:41:21 09/09/19 25 09/08/2024 CBC lymphocytes # 2.1 x10 Not Available [facility] [address] [address], [place], [address], 09/08/2024 10:41:21 09/09/19 25 09/08/2024 CBC monocytes # 0.6 x10 Not Avai lable [facility] [address] [facility] 1, [place], [address], 09/08/2024 10:41:21 09/09/1909/08/2024 GLUCO SE SCREE N glucose screen 115.0 mg/dL Not Available [facility] [address], [place], [address], 09/08/2024 11:13:28 09/14/1909/15/2024 DRUG MONIT OR, PANEL 1, SCREE N, URINE amphetamines NEGATI VE NG/mL <500 See Note A See Note A Not Available [facility] [address] [address] [address], [place], [address], 09/16/2024 00:12:42 09/14/1909/15/2024 DRUG MONIT OR, PANEL 1, SCREE N, URINE barbiturates NEGATI VE NG/mL <300 See Note A See Note A Not Available [facility] [address] [address] [address], [place], [address], 09/16/2024 00:12:42 09/14/1909/15/2024 DRUG MONIT OR, PANEL 1, SCREE N, URINE benzodiazepi taina NEGATI VE NG/mL <100 See Note A See Note A Not Available [facility] [address] [address] [address], [place], [address], 09/16/2024 00:12:42 09/14/1909/15/2024 DRUG MONIT OR, PANEL 1, SCREE N, URINE cocaine metabolite NEGATI VE NG/mL <150 See Note A See Note A Not Available [facility] [address] [address] [address], [place], [address], 09/16/2024 00:12:42 09/14/1909/15/2024 DRUG MONIT OR, PANEL 1, SCREE N, URINE marijuana metabolite POSITI VE NG/mL <20 abnormal See Note A See Note A Not Available [facility] [address] [address] [address], [place], [address], 09/16/2024 00:12:42 09/14/1909/15/2024 DRUG MONIT OR, PANEL 1, SCREE N, URINE methadone metabolite POSITI VE NG/mL <100 abnormal See Note A See Note A Not Available [address] [address] [address], [place], [address], 09/16/2024 00:12:42 09/14/1909/15/2024 DRUG MONIT OR, PANEL 1, SCREE N, URINE opiates NEGATI VE NG/mL <100 See Note A See Note A Not Available [address] [address] [address], [place], [address], 09/16/2024 00:12:42 09/14/1909/15/2024 DRUG MONIT OR, PANEL 1, SCREE N, URINE oxycodone NEGATI VE NG/mL <100 See Note A See Note A Not Available [address] [address] [address], [place], [address], 09/16/2024 00:12:42 09/14/1909/15/2024 DRUG MONIT OR, PANEL 1, SCREE N, URINE phencyclidin e NEGATI VE NG/mL <25 See Note A See Note A Not Available [address] [address] [address], [place], [address], 09/16/2024 00:12:42 09/14/1909/15/2024 DRUG MONIT OR, PANEL 1, SCREE N, URINE creatinine 60.5 mg/dL > or = 20.0 Not Available [address] [address] [address], [place], [address], 09/16/2024 00:12:42 09/14/1909/15/2024 DRUG MONIT OR, PANEL 1, SCREE N, URINE pH 7.6 4.5-9. 0 Not Available [address] [address] [address], [place], [address], 09/16/2024 00:12:42 09/14/19 25 09/15/2024 DRUG MONIT OR, PANEL 1, SCREE N, URINE oxidant NEGATI VE mcg/m L <200 Not Available [facility] [address] [place], [address], 09/16/2024 00:12:42 09/14/1909/15/2024 DRUG MONIT ORING TEMPL ATE notes and comments This drug testi ng is for medic al treat ment only. Kaci sis was perfo rmed as non-f orens ic testi ng and these resul ts shoul d be used only by healt hcare provi ders to rende r diagn osis or treat ment, or to monit or progr ess of medic al condi tions . Note A: The resul ts are presu mptiv e; based only on yannick interiano metho ds, and they have not been confi rmed by a defin itive metho d. [facility] Pro[facility] ders needi ng Inter preta tion hector tance , pleas e conta ct us at 1.877 .40.R XTOX (1.87 [phone] .[phone] ) M-F, 8am to 10pm EST Not Available [facility] [address] [address] , [place], [address], 09/16/2024 00:12:43 09/14/19 25 09/15/2024 CULTU RE, URINE , ROUTI NE culture, urine, routine SEE NOTE abnormal CULTU RE, URINE , ROUTI NE Micro Numbe r: [id number] Test Statu s: Final Speci men Sourc e: Urine Speci men Quali ty: Adequ ate Resul t: Great er than 100,0 00 CFU/m L of Esche michael a coli E.col i ----- ----- ----- - INT LOLY AMOX/ CLAVU LANAT E S 4 AMP/S ULBAC CRAFT S 4 CEFAZ IRLANDA NR <=4 2 CEFEP CIRILO S <=0.1 2 CEFTA ZIDIM E S <=1 CEFTR IAXON E S <=0.2 5 CIPRO FLOXA VANE S <=0.0 6 GENTA MICIN S <=1 IMIPE NEM S <=0.2 5 LEVOF LOXAC IN S <=0.1 2 MEROP ENEM S <=0.2 5 NITRO FURAN TOIN S <=16 PIP/T AZOBA CTAM S <=4 TRIME THOPR IM/FISHER LFA S <=20 S = Susce ptibl e I = Inter media te R = Resis tant NS = Not susce ptibl e SDD = Susce ptibl e Dose Depen dent * = Not Teste d NR = Not Repor venancio NN = See Thera py Comme nts THERA PY COMME NTS Note 1: For infec tions other than uncom plica venancio UTI cause d by E. coli, K. pneum oniae or P. mirab ilis: Cefaz irlanda is resis tant if LOLY > or = 8 mcg/m L. (Dist ingui shing susce ptibl e versu s inter media te for isola robert with LOLY < or = 4 mcg/m L requi res addit ional testi ng.) Note 2: For uncom plica venancio UTI cause d by E. coli, K. pneum oniae or P. mirab ilis: Cefaz irlanda is susce ptibl e if LOLY <32 mcg/m L and predi cts susce ptibl e to the oral agent s cefac camilo, cefdi kendal, cefpo doxim e, cefpr ozil, cefur oxime , cepha lexin and lorac arbef . Not Available [facility] [address] [address] , [place], [address], 09/16/2024 00:12:43 10/13/19 25 09/29/2024 US, obste tric, 3rd trime ster No observ ation record ed. [email or web address] Not Available 10/13 08:55:54 Result Notes None recorded. Problems Name Problem SNOMED Code Status Onset Date Resolution Date Notes Provider Name and Address Organization Details Recorded Time [facility] ctomy planned 323343960 Completed 201604/24/2017 [facility] - Status is Inactive ; 04/24/20 17 5:04PM by Tessa Hudson CMT, Annotati on/Adden dum; Promoted ; acuity set as *; Not Available [facility] 3 03:10:15 Finding of body mass index 118116498 Completed 202208/26/2024 BODY MASS INDEX (BMI) LESS THAN OR EQUAL TO 19 IN ADULT; Recorded 09/10/19 12:36PM by Mary Jo Valle RN, Office Visit; Promoted ; acuity set as *; BMI LESS THAN 19,ADULT ; Recorded 07/04/19 6:57AM by Itzel Strong LPN, Office Visit; Promoted ; acuity set as *; ; Start Date : 07/04/19 SONIYA felix [facility] 5 13:41:26 [facility] [id number] 4106 Completed 2022 Nino Almanza MD [address] [place] [address], [address] [facility] 3 06:59:26 [facility] 14807680650 4106 Active 2022 SONIYA felix [facility] 5 13:41:31 Urinary tract infectio n in pregnanc y 496293915 Active 2024 MARY JO felix [facility] 5 14:12:40 Problem Notes None recorded. Procedures Surgical History Date Name Laterality Status Provider Name and Address Organization Details Recorded Time 023 section completed [facility] 02/18/2023 14:53:47 023 Date of Last Pap Smear completed [facility] 02/18/2023 14:52:25 023 sampling of cervix for Papanicolaou smear completed [facility] RHEA [facility] 08/26/2024 13:43:06 tonsillectomy completed [facility]naud 08/26/2024 13:43:38 Imaging Results Imaging Date Name Status LastModified by Organiz ation Details LastModified Time 09/29/2024 US, obstetric, 3rd trimester completed Information not available 10/13/2024 08:55:54 Procedure Notes None recorded. Medical Equipment None Reported. Allergies Allergen ID Allergen Name Allergen Category Reaction Reaction Severity Criticality Documentation Date Start Date Code Code System Note Provider Name and Address Organization Details Recorded Time 1660 Product containin g penicilli n (product) medicatio n Not available Not available Not available 10/07/2022 19770 8001 SNOMED SONIYA Mckeon [facility] 3 13:26:10 63091 penicilli n G sodium medicatio n anaphylax is Not available Not available 01/18/2023 9900 RxNorm React ion: Anaph ylaxi s, Diffi culty breat rayna, Diffi culty swall owing ; Comme nt: Recor ded 09/09 12:36 PM by Joanne Valle RN, Offic e Visit ; Promo venancio; Signi ficfabiano ce: *; Reaso n: Drug aller gy; ; Not Available [facility] 3 02:28:37 16694 amoxicill in medicatio n Not available Not available Not available 07/29/2024 723 RxNorm SONIYA Mckeon [facility] 5 08:44:30 Medications Name Sig Start Date Stop [...] height Body mass index (BMI) Body weight Oxygen saturation Oxygen saturation in Arterial blood by Pulse oximetry Heart rate Respiratory rate Body temperature Systolic blood pressure Diastolic blood pressure Provider Name and Address Organization Details Last Updated DateTime 5 149.23 cm 19.4 kg/m2 77971.6 14211 g 99 % 99 % 76 /min 18 /min 98.2 [degF] 110 mm[Hg] 64 mm[Hg] [facility] 5 11:10:17 Date Recorded Body height Body mass index (BMI) Body weight Respiratory rate Body temperature Heart rate Oxygen saturation Oxygen saturation in Arterial blood by Pulse oximetry Systolic blood pressure Diastolic blood pressure Provider Name and Address Organization Details Last Updated DateTime 5 149.23 cm 21.2 kg/m2 73415.0 1 g 16 /min 98.1 [degF] 78 /min 99 % 99 % 122 mm[Hg] 68 mm[Hg] MARY [facility]ORAI [facility] 5 14:22:08 Date Recorded Body height Body mass index (BMI) Body weight Oxygen saturation Oxygen saturation in Arterial blood by Pulse oximetry Heart rate Respiratory rate Body temperature Systolic blood pressure Diastolic blood pressure Provider Name and Address Organization Details Last Updated DateTime 5 149.23 cm 20.8 kg/m2 45123.8 2 g 98 % 98 % 84 /min 18 /min 98.3 [degF] 120 mm[Hg] 64 mm[Hg] SONIYA PACHECO [facility] 13:52:25 Date Recorded Body height Body mass index (BMI) Body weight Respiratory rate Body temperature Heart rate Oxygen saturation Oxygen saturation in Arterial blood by Pulse oximetry Systolic blood pressure Diastolic blood pressure Provider Name and Address Organization Details Last Updated DateTime 5 149.23 cm 21 kg/m2 27783.4 1 g 16 /min 98.2 [degF] 80 /min 98 % 98 % 104 mm[Hg] 60 mm[Hg] MARY JO VALLE [facility] 15:19:17 Social History Question Answer Notes LastModified by Organizat ion Details LastModified Time Tobacco Smoking Status Former Smoker [facility]ON[facility]YA [facility]ix [facility] 01/21/2023 09:35:41 What Is Your Level [...] History Condition Response Coronary Artery Disease N Other N Gout N Kidney Stones N Blood Diseases N Hyperthyroidism N Breast Cancer N Blood Transfusion N Depression N Hypothyroidism N Lung Disease N COPD N Defects or Inherited Disease N Developmental or Behavioral Disorders N Breast Problem N Difficulty Swallowing N Anesthesia Complications N Meniere's disease N Anxiety Disorder Y Muscle, Joint, or Bone Problems N Vision or Eye Problems N Arthritis N Polyps N Infertility N Cancer N Varicosities N Stroke N Endometriosis N Bladder or Kidney Problems N High Cholesterol N Liver Disease N Fibromyalgia N Headaches Y Kidney Disease N Allergies/Hayfever N Heart Problems [...] virus, trivalent, preservative 7 completed Not Available [facility] 08/05/2023 15:43:07 Influenza, split virus, trivalent, preservative 8 completed Not Available [facility] 08/05/2023 15:43:07 HPV9 6 completed SONIYA [facility]ix [facility] 12/02/2022 12:00:18 HPV9 9 completed TREBA NEUSCHWANDGIO felix [facility]ildeLAr[facility]udC[facility] 12/02/2022 12:00:18 HPV9 7 completed TREBA NEUFREDYWABLANCO [facility] AwildaCArnaud 12/02/2022 12:00:18 IPV 1 completed TREBA NEUFREDYWABLANCO felix [facility] 12/02/2022 12:00:18 IPV 1 completed TRELONDON HENNINGWABLANCO [facility]ix [facility] 12/02/2022 12:00:18 IPV 5 completed TREBA NEUSCHWANDER null, [facility] 12/02/2022 12:00:18 IPV 0 completed TREBA NEUSCHWANDER null, [facility] 12/02/2022 12:00:18 MMR 1 completed TREBA NEUSCHWANDER null, [facility] 12/02/2022 12:00:18 MMR 5 completed TREBA NEUSCHWANDER null, [facility] 12/02/2022 12:00:18 Tdap 5 completed TREBA NEUSCHWANDER null, [facility] 12/02/2022 12:00:18 varicella 1 completed TREBA NEUSCHWANDER null, [facility] 12/02/2022 12:00:18 Hep B, unspecified formulation 0 completed TREBA NEUSCHWANDER null, [facility] 12/02/2022 12:00:18 Hep B, adolescent/high risk 1 completed TREBA NEUSCHWANDER null, [facility] 12/02/2022 12:00:18 Hep B, adolescent/high risk 0 completed TREBA NEUSCHWANDER null, [facility] 12/02/2022 12:00:18 Hep A, ped/adol, 2 dose 6 completed TREBA NEUSCHWANDER null, [facility] 12/02/2022 12:00:18 Hep A, ped/adol, 2 dose 7 completed TREBA NEUSCHWANDER null, [facility] 12/02/2022 12:00:18 Hib (PRP-T) 1 completed TREBA NEUSCHWANDER null, [facility] 12/02/2022 12:00:18 Hib (PRP-T) 1 completed TREBA NEUSCHWANDER null, [facility] 12/02/2022 12:00:18 Hib (PRP-T) 1 completed TREBA NEUSCHWANDER null, [facility] 12/02/2022 12:00:18 Hib (PRP-T) 0 completed TREBA NEUSCHWANDER null, [facility] 12/02/2022 12:00:18 meningococcal MCV4P 6 completed TREBA NEUSCHWANDER null, [facility] 12/02/2022 12:00:18 DTaP 1 completed TREBA NEUSCHWANDER null, [facility] 12/02/2022 12:00:18 DTaP 2 completed TREBA NEUSCHWANDER null, [facility] 12/02/2022 12:00:18 DTaP 1 completed TREBA NEUSCHWANDER null, [facility] 12/02/2022 12:00:18 DTaP 5 completed TREBA NEUSCHWANDER null, [facility] 12/02/2022 12:00:18 DTaP 0 completed TREBA NEUSCHWANDER null, [facility] 12/02/2022 12:00:18 Past Encounters Encounter ID Performer Location Encounter Start Date Encounter Closed Date Diagnosis/Indication Diagnosis SNOMED-CT Code Diagnosis ICD10 Code Diagnosis Note [id number] Nino Almanza MD [facility] ([facility]) [address] [place] [id number] 5 10/07/2022 12:22:17 10/11/2022 15:58:29 Normal in multigravida [id number] 71536 Z34.82 [id number] [facility]) [address] [place] [address] [id number] 5 10/08/2022 13:59:50 10/08/2022 15:31:53 Normal in multigravida [id number] 49941 Z34.[id number] [facility]) [address] [place] [address] [id number] 5 11/04/2022 12:25:29 11/04/2022 18:35:26 Normal in multigravida 9614517199 11608 Z34.82 Gestation period, 24 weeks 342369095 Z3A.24 [id number] Nino Almanza MD [facility] ([facility]) [address] [place] [address] [id number] 5 12/02/2022 11:13:26 12/02/2022 20:19:07 [id number] Z33.1 Gestation period, 28 weeks 09649790 Z3A.28 Heartburn 33192776 R12 [id number] Nino Almanza MD [facility] ([facility]) [address] [place] [address] [id number] 5 12/23/2022 10:54:30 12/23/2022 13:49:59 48582640 Z33.1 Gestation period, 31 weeks 05917254 Z3A.31 [id number] Nino Almanza MD [facility] ([facility]) [address] [place] [address] [id number] 5 01/06/2023 12:41:17 01/06/2023 15:16:29 Normal in multigravida 0227068011 40133 Z34.83 Gestation period, 33 weeks 95318465 Z3A.33 [id number] Nino Almanza MD [facility] ([facility]) [address] [place] [address] [id number] 5 01/15/2023 13:58:50 01/15/2023 18:42:32 [id number] Nino Almanza MD [facility] ([facility]) [address] [place] [address] [id number] 5 01/21/2023 08:57:00 01/21/2023 15:46:30 Normal in multigravida [id number] 74026 Z34.83 Gestation period, 35 weeks 00162969 Z3A.35 [id number] Nino Almanza MD [facility] ([facility]) [address] [place] [address] [id number] 5 01/27/2023 10:24:57 01/27/2023 20:26:28 Normal in multigravida [id number] 11710 Z34.83 [id number] Nino Almanza MD [facility] ([facility]) [address] [place] [address] [id number] 5 01/27/2023 10:53:40 01/27/2023 20:26:09 Normal in multigravida 8563272583 59925 Z34.83 Gestation period, 36 weeks 84562410 Z3A.36 [id number] Nino Almanza MD [facility] ([facility]) [address] [place] [address] [phone] 5 02/03/2023 10:30:04 02/03/2023 19:16:09 Normal in multigravida [id number] 80681 Z34.83 Gestation period, 37 weeks 94945990 Z3A.37 [id number] Nino Almanza MD [facility] ([facility]) [address] [place] [address] [phone] 5 02/05/2023 15:23:49 02/05/2023 18:20:10 Normal in multigravida [id number] 57211 Z34.83 [id number] Nino Almanza MD [facility] ([facility]) [address] [place] [address] [phone] 5 02/10/2023 09:07:04 02/10/2023 14:18:43 Normal in multigravida [id number] 95135 Z34.83 Gestation period, 38 weeks 57860787 Z3A.38 [id number] Nino Almanza MD [facility] ([facility]) [address] [place] [address] [id number] 5 02/10/2023 09:07:18 02/10/2023 19:05:26 Normal in multigravida [id number] 38064 Z34.83 [id number] Nino Almanza MD [facility] ([facility]) [address] [place] [address] [phone] 5 02/18/2023 14:43:15 02/28/2023 04:06:50 care 602476501 Z39.2 Removal of suture 942889 01 Z48.02 Postoperative care 83248 9007 Z48.89 [id number] Nino Almanza MD [facility]) [address] [place] [address] [id number] 5 03/31/2023 10:47:05 03/31/2023 13:14:42 care 910518501 Z39.2 Contracept ion care management 432537927 Z30.9 [id number] FEMI BRODY PA-C [facility] ([facility]) [address] [place] [address] [phone] 5 08/05/2023 15:42:31 08/05/2023 17:23:58 Dysuria 04859288 R30.0 urine looks ok today Uses oral contraception 8712463 Z30.41 I discussed the following regarding all forms of control methods: effectiven ess, correct use, advantages /disadvant ages, common side effects, serious complicati ons, contra-ind ications/p recautions and return to fertility were reviewedSh e will finish her current pack and then switch to combo OC Mixed anxi ety and depressive disorder [id number] F41.8 [id number] FEMI BRODY PA-C [facility] ([facility]) [address] [place] [address] [phone] 5 09/12/2023 12:00:44 09/12/2023 15:30:01 Mixed anxiety and depressive disorder 422412236 F41.8 will increase dose and have her come back in 2 month for recheck. Menometrorrhagia 1465044 08 N92.1 will try another month before changing [id number] Nino Almanza MD [facility] ([facility]) [address] [place] [address] [phone] 5 05/06/2024 14:00:24 05/06/2024 15:40:35 Normal in multigravida 0880365776 17420 Z34.83 Gestation period, 12 weeks 77167164 Z3A.12 Morning sickness 3737100 6 O21.9 [id number] Nino Almanza MD [facility] ([facility]) [address] [place] [address] [id number] 5 05/11/2024 14:07:39 05/12/2024 13:57:31 [id number] Nino Almanza MD [facility] ([facility]) [address] [place] [address] [phone] 5 06/04/2024 09:46:01 06/04/2024 11:15:12 Normal in multigravida 2284901283 52108 Z34.83 Gestation period, 16 weeks 33108045 Z3A.16 [id number] Nino Almanza MD [facility] ([facility]) [address] [place] [address] [phone] 5 07/01/2024 14:06:05 07/05/2024 13:53:19 [id number] Nino Almanza MD [facility] ([facility]) [address] [place] [address] [phone] 5 07/29/2024 08:38:43 07/29/2024 10:05:40 Normal in multigravida 7624725713 30584 Z34.82 Gestation period, 24 weeks 291942650 Z3A.24 [id number] Nino Almanza MD [facility] ([facility]) [address] [place] [address] [phone] 5 08/26/2024 13:29:44 08/26/2024 16:30:55 Normal in multigravida 1337937833 41889 Z34.82 Gestation period, 28 weeks 43777464 Z3A.28 Anxiety 29001643 F41.9 Low matern al weight gain 43708284 O26.12 [id number] Nino Almanza MD [facility] ([facility]) [address] [place] [address] [id number] 5 09/13/2024 10:17:40 09/13/2024 15:08:26 Normal in multigravida 6722523887 87423 Z34.82 Gestation period, 31 weeks 77043941 Z3A.31 Nausea and vomiting in 3586105851 O21.9 Vaginal discharge 175166 006 N89.8 Dysuria 93161906 R30.0 [id number] Nino Almanza MD [facility] ([facility]) [address] [place] [address] [phone] 5 09/28/2024 13:42:22 09/28/2024 14:58:25 Normal in multigravida 6895109442 82938 Z34.82 Gestation period, 33 weeks 24683339 Z3A.33 Heartburn 95287219 R12 [id number] Nino Almanza MD [facility] ([facility]) [address] [place] [address] [phone] 5 09/29/2024 08:53:11 09/30/2024 13:44:23 [id number] Nino Almanza MD [facility] ([facility]) [address] [place] [address] [id number] 5 10/21/2024 13:27:18 10/22/2024 09:20:37 Normal in multigravida 5557008818 78619 Z34.82 Gestation period, 36 weeks 44333657 Z3A.36 Nausea and vomiting in 4523264029 O21.9 [id number] Nino Almanza MD [facility] ([facility]) [address] [place] [address] [id number] 5 10/28/2024 14:41:56 10/28/2024 15:45:19 Normal in multigravida 3303220520 18858 Z34.82 Gestation period, 37 weeks 88971702 Z3A.37 Health Concerns Section Related Observation LastModified by Organization Detai ls LastModified Time None Recorded Concern Status LastModified by Organization Details LastModified Time None Recorded Advance Directives Directive None Recorded Payers Encounter Date Sequence Insurance Name Policy Number Policy Salazar Covered Member ID Salazar Member ID Guarantor Name 09/13/2024 1 [employer] [place] [id number] Chika A Mili [id number] Chika A Mili 09/28/2024 1 [employer] [place] [id number] Chika A Mili [id number] Chika A Mili 09/29/2024 1 [employer] [id number] Chika A Mili [id number] 17 Chika A Mili 10/21/2024 1 [employer] [place] [id number] Chika A Mili [id number] 17 Chika A Mili 10/28/2024 1 [employer] [place] [id number] Chika A Mili [id number] 17 Chika A Mili Notes Date Note Type Note Provider Name and Address Organization Details Recorded Time 09/13/2024 text/html ob routineRep orted bypatient.Associated Symptoms:no abdominal pain; no contractions; normal movement; no bleeding; no frequency; no urgency; no hematuria; no fever; no constipation; no diarrhea/loose stool; no edema; no dizziness; no breathlessness;crampi ng;vaginal discharge;vaginal/vul vasquez itching or irritation;dysuria;na usea;emesis;headacheN otes:fatigue,Denies any tobacco, alcohol use. Pt is smoking Marijuana daily Nino Almanza MD [address] [place] [address], [phone], [facility] [place] 09/28/2024 22:07:32 09/28/2024 text/html ob routineRep orted bypatient.Associated Symptoms:no contractions; normal movement; no bleeding; no vaginal/vulvar itching or irritation; no dysuria; no frequency; no urgency; no hematuria; no fever; no diarrhea/loose stool; no edema; no dizziness; no breathlessness;abdomi nal pain(upper abd tender to touch);cramping;vagin al discharge;nausea;emes is;constipation;heada cheNotes:fatigue, acid refluxDenies any tobacco, alcohol use. Pt is smoking Marijuana daily Nino Almanza MD [address] [place] [address], [phone], [facility] 09/28/2024 14:57:43 10/21/2024 text/html ob routineRep orted bypatient.Associated Symptoms:no contractions; normal movement; no bleeding; no vaginal/vulvar itching or irritation; no dysuria; no frequency; no urgency; no hematuria; no fever; no constipation; no diarrhea/loose stool; no edema; no dizziness; no breathlessness;abdomi nal pain(upper abd tender to touch);cramping;vagin al discharge(increased); nausea;emesis;headach eNotes:fatigue, acid refluxDenies any tobacco, alcohol use. Pt is smoking Marijuana daily Nnio Almanza MD [address] [place] [address], [phone], [facility] 10/26/2024 20:41:16 10/28/2024 text/html ob routineRep orted bypatient.Associated Symptoms:no contractions; normal movement; no bleeding; no vaginal/vulvar itching or irritation; no dysuria; no frequency; no urgency; no hematuria; no fever; no emesis; no diarrhea/loose stool; no edema; no dizziness; no breathlessness;abdomi nal pain(upper abd tender to touch);cramping;vagin al discharge;nausea;cons tipation;headacheNote s:fatigue, acid reflux, vaginal pressureDenies any tobacco, alcohol use. Pt is smoking Marijuana daily Nino Almanza MD [address] [place] [address], [phone], [facility] 10/28/2024 15:44:03 OBGyn Episode Ob Episode Information Episode Created Date Number of Fetuses Patient Bloodtype Patient rh Status Prepregnancy Weight lbs Domestic Partner Domestic Partner Phone Father Name Parts Counter Specialist Status 05/06/20 24 1 O Positive Treasure Dannie OPEN Fetus Data First Name Last Name [...] Weight in lbs Pre/Post Dialysis Refused Weight 95.1228187835932 BP Diastolic BP Location Tested BP Systolic [...] Type Weight in lbs Pre/Post Dialysis Refused 92.3977377057100 BP Diastolic BP Location Tested BP Systolic [...] Type Weight in lbs Pre/Post Dialysis Refused 96.8709766384787 BP Diastolic BP Location Tested BP Systolic [...] Type Weight in lbs Pre/Post Dialysis Refused 96.4818507912432 BP Diastolic BP Location Tested BP Systolic [...] Type Weight in lbs Pre/Post Dialysis Refused 95.9768445891864 BP Diastolic BP Location Tested BP Systolic [...] Weight in lbs Pre/Post Dialysis Refused Weight 104.529428487557 BP Diastolic BP Location Tested BP Systolic [...] Weight in lbs Pre/Post Dialysis Refused Weight 102.324821604218 BP Diastolic BP Location Tested BP Systolic [...] Weight in lbs Pre/Post Dialysis Refused Weight 103.717677330430 BP Diastolic BP Location Tested BP Systolic [...] Estim ated Date of Delivery false Thalassemia (Polish, Iranian, Mediterranean, Or Background): MCV < 80 false Neural Tube Defect (Meningomyelocele, Spina Bifi da, Or Anencephaly) false Congenital Heart Defect false Down Syndrome false Cristobal-Sachs (eg, Orthodoxy, Cajun, Welsh-Burundian) f alse Madeline Disease false Sickle Cell [...] Method Maternal HG B and HCT Levels Ob Episode Information Episode Created Date Number of Fetuses Patient Bloodtype Patient rh Status Prepregnancy Weight lbs Domestic Partner Domestic Partner Phone Father Name Parts Counter Specialist Status 10/08/19 23 1 O Positive Treasurebelkis Pandey CLOSED Fetus Data First Name Last Name Admitted to NICU Weight (g) Sex Living Outcome Pediatric Complications Fetus ID Race Codes Race Delivery Type Ward false 2976.69 75 M 530 Problems Problem Notes Needs weekly testing a t 32 weeks.Bilateral Clubfoot Problem Name Start Date End Date Resolution Snomed Code Not e Normal in multigravida 01/06/2023 [id number] Zeeshan Calculation Initial Zeeshan Date Initial Exam Date Initial Exam Provider Initial Ultrasound Date Last Menstrual Period Date Ultra Sound Weeks Gestation 02/19/2023 10/07/2022 08/19/2022 0 Eighteen To Twenty Week Zeeshan Update Ultra Sound Date Fundal Height At Umbil Quickening Date Ultra Sound Latest Weeks Gestation Final Zeeshan Confirmed By Final Zeeshan Confirmed Date Final Zeeshan Date Ultra Sound Latest Days Gestation 0 0 Pre-frantz Flowsheet Flowsheet Date 10/07/2022 Quiroz Score Blood Edema Fundus Height Fundus Units Glucose Ketones Leukocytes Nitrite Labor Signs Protein Cervic Dilation Cervic Effacement Cervic Station none 21 none none Negative neg Type Weight in lbs Pre/Post Dialysis Refused Weight 107.373739388007 BP Diastolic BP Location Tested BP Systolic BP Type 70 R arm 120 sitting Fetus Heart Rate Present A 140 Present Fetus Movement A Yes Comments diarrhea occ Flowsheet Date 10/08/2022 Quiroz Score Blood Edema Fundus Height Fundus Units Glucose Ketones Leukocytes Nitrite Labor Signs Protein Cervic Dilation Cervic Effacement Cervic Station Type Weight in lbs Pre/Post Dialysis Refused BP Diastolic BP Location Tested BP Systolic BP Type Fetus Heart Rate Present Fetus Movement Comments Flowsheet Date 10/10/2022 Quiroz Score Blood Edema Fundus Height Fundus Units Glucose Ketones Leukocytes Nitrite Labor Signs Protein Cervic Dilation Cervic Effacement Cervic Station Type Weight in lbs Pre/Post Dialysis Refused BP Diastolic BP Location Tested BP Systolic BP Type Fetus Heart Rate Present Fetus Movement Comments u/s on 10/08/22. EGA 20.6, ED D 02/19/23. Bilateral talipes equinovarus deformity. Increased risk for other congenital anomalies. Consider follow-up with maternal - medicine. No other anomalies are apparent. Normal growth since the first trimester u/s. Flowsheet Date 11/01/2022 Quiroz Score Blood Edema Fundus Height Fundus Units Glucose Ketones Leukocytes Nitrite Labor Signs Protein Cervic Dilation Cervic Effacement Cervic Station Type Weight in lbs Pre/Post Dialysis Refused BP Diastolic BP Location Tested BP Systolic BP Type Fetus Heart Rate Present Fetus Movement Comments RA completed for Healthy Vern e Flowsheet Date 11/04/2022 Quiroz Score Blood Edema Fundus Height Fundus Units Glucose Ketones Leukocytes Nitrite Labor Signs Protein Cervic Dilation Cervic Effacement Cervic Station 22 cm none trace trace Type Weight in lbs Pre/Post Dialysis Refused Weight 110.412264536004 BP Diastolic BP Location Tested BP Systolic BP Type 64 112 Fetus Heart Rate Present A 148 Present Fetus Movement A Yes Comments feeling good Flowsheet Date 12/02/2022 Quiroz Score Blood Edema Fundus Height Fundus Units Glucose Ketones Leukocytes Nitrite Labor Signs Protein Cervic Dilation Cervic Effacement Cervic Station none 27 cm none none Negative neg Type Weight in lbs Pre/Post Dialysis Refused Weight 115.857886038893 BP Diastolic BP Location Tested BP Systolic BP Type 72 R arm 120 sitting Fetus Heart Rate Present A 132 Present Fetus Movement A Yes Comments constipation, headache, low back pain, acid reflux, glucose screen ordered Flowsheet Date 12/23/2022 Quiroz Score Blood Edema Fundus Height Fundus Units Glucose Ketones Leukocytes Nitrite Labor Signs Protein Cervic Dilation Cervic Effacement Cervic Station 32 cm none trace neg Type Weight in lbs Pre/Post Dialysis Refused Weight 116.093717833327 BP Diastolic BP Location Tested BP Systolic BP Type 70 R arm 118 sitting Fetus Heart Rate Present A 148 Present Fetus Movement A Yes Comments swelling in feet Flowsheet Date 01/06/2023 Quiroz Score Blood Edema Fundus Height Fundus Units Glucose Ketones Leukocytes Nitrite Labor Signs Protein Cervic Dilation Cervic Effacement Cervic Station 34 none trace 1+ Type Weight in lbs Pre/Post Dialysis Refused Weight 117.254523198478 BP Diastolic BP Location Tested BP Systolic BP Type 70 122 Fetus Heart Rate Present A 144 Present Fetus Movement A Yes Comments acid reflux, edema Flowsheet Date 01/15/2023 Quiroz Score Blood Edema Fundus Height Fundus Units Glucose Ketones Leukocytes Nitrite Labor Signs Protein Cervic Dilation Cervic Effacement Cervic Station Type Weight in lbs Pre/Post Dialysis Refused BP Diastolic BP Location Tested BP Systolic BP Type Fetus Heart Rate Present Fetus Movement Comments Flowsheet Date 01/20/2023 Quiroz Score Blood Edema Fundus Height Fundus Units Glucose Ketones Leukocytes Nitrite Labor Signs Protein Cervic Dilation Cervic Effacement Cervic Station Type Weight in lbs Pre/Post Dialysis Refused BP Diastolic BP Location Tested BP Systolic BP Type Fetus Heart Rate Present Fetus Movement Comments u/s 01/20/23, BPP 01/28, previo usly described bilateral clubfoot. presentation Breech. Flowsheet Date 01/21/2023 Quiroz Score Blood Edema Fundus Height Fundus Units Glucose Ketones Leukocytes Nitrite Labor Signs Protein Cervic Dilation Cervic Effacement Cervic Station 34 cm none 1+ Negative trace Type Weight in lbs Pre/Post Dialysis Refused Weight 118.525164942385 BP Diastolic BP Location Tested BP Systolic BP Type 60 R arm 100 sitting Fetus Heart Rate Present A 146 Present Fetus Movement A Yes Comments Group B today, Epidural cons ult 02/03/23, constipation, occ edema to legs, headaches, acid reflux, back and hip pain Flowsheet Date 01/21/2023 Quiroz Score Blood Edema Fundus Height Fundus Units Glucose Ketones Leukocytes Nitrite Labor Signs Protein Cervic Dilation Cervic Effacement Cervic Station Type Weight in lbs Pre/Post Dialysis Refused BP Diastolic BP Location Tested BP Systolic BP Type Fetus Heart Rate Present Fetus Movement Comments Anesthesia Consult requested for 02/03/23, scheduled for 02/17/23 @ 0700. Flowsheet Date 01/27/2023 Quiroz Score Blood Edema Fundus Height Fundus Units Glucose Ketones Leukocytes Nitrite Labor Signs Protein Cervic Dilation Cervic Effacement Cervic Station Type Weight in lbs Pre/Post Dialysis Refused BP Diastolic BP Location Tested BP Systolic BP Type Fetus Heart Rate Present Fetus Movement Comments Flowsheet Date 01/27/2023 Quiroz Score Blood Edema Fundus Height Fundus Units Glucose Ketones Leukocytes Nitrite Labor Signs Protein Cervic Dilation Cervic Effacement Cervic Station none trace trace Type Weight in lbs Pre/Post Dialysis Refused Weight 120.919750581144 BP Diastolic BP Location Tested BP Systolic BP Type 76 L arm 122 sitting Fetus Heart Rate Present A 132 Present Fetus Movement A Yes Comments acid reflux/ swelling/ const ipation Flowsheet Date 01/28/2023 Quiroz Score Blood Edema Fundus Height Fundus Units Glucose Ketones Leukocytes Nitrite Labor Signs Protein Cervic Dilation Cervic Effacement Cervic Station Type Weight in lbs Pre/Post Dialysis Refused BP Diastolic BP Location Tested BP Systolic BP Type Fetus Heart Rate Present Fetus Movement Comments u/s on 01/15/23, Breech prese ntation, ZEESHAN 02/21/23, RAMAN 14.61, BPP 8/8. Flowsheet Date 01/29/2023 Quiroz Score Blood Edema Fundus Height Fundus Units Glucose Ketones Leukocytes Nitrite Labor Signs Protein Cervic Dilation Cervic Effacement Cervic Station Type Weight in lbs Pre/Post Dialysis Refused BP Diastolic BP Location Tested BP Systolic BP Type Fetus Heart Rate Present Fetus Movement Comments Gbs Negative. OB records fax ed Flowsheet Date 01/31/2023 Quiroz Score Blood Edema Fundus Height Fundus Units Glucose Ketones Leukocytes Nitrite Labor Signs Protein Cervic Dilation Cervic Effacement Cervic Station Type Weight in lbs Pre/Post Dialysis Refused BP Diastolic BP Location Tested BP Systolic BP Type Fetus Heart Rate Present Fetus Movement Comments BPP on 01/27/23 results 01/28, b reech presentation. RAMAN 11.47 Flowsheet Date 02/03/2023 Quiroz Score Blood Edema Fundus Height Fundus Units Glucose Ketones Leukocytes Nitrite Labor Signs Protein Cervic Dilation Cervic Effacement Cervic Station 36 wks none 1+ trace Type Weight in lbs Pre/Post Dialysis Refused Weight 119.253821269820 BP Diastolic BP Location Tested BP Systolic BP Type 76 118 Fetus Heart Rate Present A 140 Present Fetus Movement A Yes Comments Left hip pain, back pain, sw elling, rectal bleeding Flowsheet Date 02/05/2023 Quiroz Score Blood Edema Fundus Height Fundus Units Glucose Ketones Leukocytes Nitrite Labor Signs Protein Cervic Dilation Cervic Effacement Cervic Station Type Weight in lbs Pre/Post Dialysis Refused BP Diastolic BP Location Tested BP Systolic BP Type Fetus Heart Rate Present Fetus Movement Comments Flowsheet Date 02/06/2023 Quiroz Score Blood Edema Fundus Height Fundus Units Glucose Ketones Leukocytes Nitrite Labor Signs Protein Cervic Dilation Cervic Effacement Cervic Station Type Weight in lbs Pre/Post Dialysis Refused BP Diastolic BP Location Tested BP Systolic BP Type Fetus Heart Rate Present Fetus Movement Comments 02/05/23 BPP /8, RAMAN 8.99 sl ightly decreased Flowsheet Date 02/10/2023 Quiroz Score Blood Edema Fundus Height Fundus Units Glucose Ketones Leukocytes Nitrite Labor Signs Protein Cervic Dilation Cervic Effacement Cervic Station Type Weight in lbs Pre/Post Dialysis Refused BP Diastolic BP Location Tested BP Systolic BP Type Fetus Heart Rate Present Fetus Movement Comments Flowsheet Date 02/10/2023 Quiroz Score Blood Edema Fundus Height Fundus Units Glucose Ketones Leukocytes Nitrite Labor Signs Protein Cervic Dilation Cervic Effacement Cervic Station 36 cm none trace Negative trace Type Weight in lbs Pre/Post Dialysis Refused Weight 123.725419497271 BP Diastolic BP Location Tested BP Systolic BP Type 70 118 sitting Fetus Heart Rate Present A 128 Present Fetus Movement Comments headache, edema-legs/feet, c onstipation Flowsheet Date 02/10/2023 Quiroz Score Blood Edema Fundus Height Fundus Units Glucose Ketones Leukocytes Nitrite Labor Signs Protein Cervic Dilation Cervic Effacement Cervic Station Type Weight in lbs Pre/Post Dialysis Refused BP Diastolic BP Location Tested BP Systolic BP Type Fetus Heart Rate Present Fetus Movement Comments U/S of 02/08/23-BPP 01/28 FHT13 1 Flowsheet Date 02/18/2023 Quiroz Score Blood Edema Fundus Height Fundus Units Glucose Ketones Leukocytes Nitrite Labor Signs Protein Cervic Dilation Cervic Effacement Cervic Station Type Weight in lbs Pre/Post Dialysis Refused Weight 103.806616907487 BP Diastolic BP Location Tested BP Systolic BP Type 74 130 sitting Fetus Heart Rate Present Fetus Movement Comments Flowsheet Date 02/18/2023 Quiroz Score Blood Edema Fundus Height Fundus Units Glucose Ketones Leukocytes Nitrite Labor Signs Protein Cervic Dilation Cervic Effacement Cervic Station Type Weight in lbs Pre/Post Dialysis Refused BP Diastolic BP Location Tested BP Systolic BP Type Fetus Heart Rate Present Fetus Movement Comments u/s on 02/10/23 BPP 11/28. RAMAN 9.64. Breech Menstrual History Last Menstrual Date Menses Monthly On Bcp Conception Prior Menses Frequency Hcg Plus Date Menarche Onset Age Genetic Screening And Infection History Question Response Note Patient's Age Will Be 35 Yea rs Or Older At Estimated Date of Delivery false Thalassemia (Polish, Iranian, Mediterranean, Or Background): MCV < 80 false Neural Tube Defect (Meningom yelocele, Spina Bifida, Or Anencephaly) false Congenital Heart Defect false Down Syndrome false Cristobal-Sachs (eg, Orthodoxy, Cajun, Welsh-Burundian) f alse Madeline Disease false Sickle Cell Disease Or Trait () false Hemophilia Or Other Blood Disorders false Muscular Dystrophy false Cystic Fibrosis false Dickenson's Chorea false Intellectual Disability/Autism false If Yes, [...] Outside of Country false Mental Retardation/Autism false Cousin with Autism Delivery Information Delivery Date Delivery Type Labor Anesthesia Weeks Gestation Incision Type Labor Labor Length Hrs Delivered By Post Complications Tubal Sterilization Discharge Date Comments 3 38.6 Nino Glover MD None Discharge Information Feeding Method Contraceptive Method Maternal HG B and HCT Levels
[2024-10-31 16:06] LABS: Basophils # 0.1 10^3/uL (0.0-0.1); Basophils % 0.5 %; Eosinophils % 0.3 %; Hematocrit 27.5 % (36-47); Lymphocytes # 2.2 10^3/uL (0.8-4.8); Lymphocytes % 14.1 %; Mean Corpuscular HGB Conc 32.4 g/dL (30-55); Mean Corpuscular Hemoglobin 27.7 pg (27-33); Mean Corpuscular Volume 85.7 fl (85-98); Mean Platelet Volume 9.3 fL (7.4-10.4); Monocytes # 0.9 10^3/uL (0.2-0.9); Monocytes % 5.9 %; Neutrophils # 12.52 10^3/uL (1.8-7.7); Neutrophils % 78.9 %; Nucleated Red Blood Cells % 0 %; Platelet Count 162 10^3/cmm (157-399); Red Blood Count 3.21 10^6/uL (3.85-5.65); Red Cell Distribution Width 12.9 % (12.1-15.1); White Blood Count 15.87 10^3/uL (3.29-11.43)
[2024-10-31] MEDS: HYDROcodone-acetaminophen 5-325 mg Tablet PO ×2 (17:48→21:41)
[2024-10-31] MEDS: docusate sodium 100 mg Capsule PO (17:48)
[2024-10-31] MEDS: ferrous sulfate EC 325 mg Tablet PO (17:49)
[2024-10-31] MEDS: ondansetron 2 mg/ML SDV 2 mL 4 MG IVP (19:47)
[2024-11-01] VITALS (8 sets, daily range): BP systolic 114–130; BP diastolic 59–75; PULSE 64–75; RESP 16–17; TEMP 36.6–36.7
[2024-11-01] MEDS: ketorolac 30 mg/mL INJ IVP ×2 (00:15→06:04)
[2024-11-01] MEDS: simethicone 80 mg Chew PO ×2 (00:19→10:20)
[2024-11-01] MEDS: HYDROcodone-acetaminophen 5-325 mg Tablet PO ×2 (01:49→07:14)
[2024-11-01 04:25] LABS: Hematocrit 27.2 % (36-47); Mean Corpuscular Volume 87.5 fl (85-98); Mean Platelet Volume 9.1 fL (7.4-10.4); Platelet Count 163 10^3/cmm (157-399); Red Blood Count 3.11 10^6/uL (3.85-5.65); White Blood Count 12.63 10^3/uL (3.29-11.43)
[2024-11-01] MEDS: ferrous sulfate EC 325 mg Tablet PO ×2 (07:14→20:16)
--- NOTE | 2024-11-01 07:58 | P.PN_ITS ---
PATHOLOGY TRANSCRIPTIONIST Subjective 2 Subjective: Interval history: The patient is done well overall. She has had moderate pain. She also has been moderately anxious. Initially, her bleeding was moderate, but that has improved. Her urine output is been appropriate. Her vitals been stable. Labor: Station: -1 Amniotic Membrane Status: Ruptured Monitor Mode: External Contraction Pattern: Irregular Vitals/I&O/Wt Last Vital Signs Temp 98.0 F 11/01/24 05:42 Pulse 64 11/01/24 05:42 Resp 16 11/01/24 05:42 BP 115/67 11/01/24 05:42 Pulse Ox 97 10/31/24 17:25 O2 Del Method Room Air 10/31/24 09:31 10/31/24 11/01/24 11/01/24 22:59 06:59 14:59 Intake Total 606.25 / 3358.0188 363.417 / 3721.4358 500 / 500 Output Total 850 / 1750 550 / 2300 Balance -243.75 / 1608.0188 -186.583 / 1421.4358 500 / 500 Weight last 48 hrs Weight 104 lb Physical Exam 2 Narrative: She is in no acute distress Lungs are clear auscultation bilaterally Her heart has a regular rate and rhythm Her fundus is below the umbilicus and firm Her dressing is clean, dry and intact Her extremities have trace edema Urinary Catheter Management: [place]: Cath Placed During This Visit: yes, but has since been removed by the nurse Reason for Continuing Indwelling Catheter: Decision to DC Catheter Urinary Catheter Date of Insertion: 10/31/24 Urinary Catheter Time of Insertion: 10:45 Date Urinary Catheter Removed: 11/01/24 Time Urinary Catheter Discontinued: 06:15 Data 11/01/24 04:00 A&P Assessment and plan (1) Status post : Overall, she appears to be doing well. We are going to change her hydrocodone for Percocet to see if we can control her pain a little better. Due to her tolerance of narcotics, we recognize that her pain control may not be as good as some, but we will do her best to keep her comfortable. If things go well today, we will consider discharge in the morning. (2) 37 weeks gestation of : (3) Methadone use: PDMP PDMP Reviewed: Not Reviewed Attestations 2 Medical Necessity Statement*: Routine and post care Coding Level of Care Code Acute Code for Chg Fwd Diagnoses Status post Z98.891 37 weeks gestation of Z3A.37 Methadone use F11.90
[2024-11-01] MEDS: PRENATAL VIT NO.130/IRON/FOLIC 1 EACH TABLET PO (08:55)
[2024-11-01] MEDS: docusate sodium 100 mg Capsule PO ×2 (08:55→20:15)
[2024-11-01] MEDS: escitalopram 10 mg Tablet PO (08:55)
[2024-11-01] MEDS: methadone 10 mg Tablet 30 MG PO (08:56)
[2024-11-01] MEDS: ondansetron 2 mg/ML SDV 2 mL 4 MG IVP (10:48)
[2024-11-01] MEDS: oxyCODONE-APAP 5-325 mg Tablet PO ×2 (13:17→21:43)
[2024-11-01] MEDS: ibuprofen 800 mg tablet PO ×2 (15:18→20:16)
[2024-11-01] MEDS: hyDROXYzine 25 mg Capsule 50 MG PO (20:14)
[2024-11-02 03:31] VITALS: BP 119/59; PULSE 64
[2024-11-02 05:09] VITALS: RESP 16
[2024-11-02] MEDS: oxyCODONE-APAP 5-325 mg Tablet PO (05:09)
[2024-11-02] MEDS: docusate sodium 100 mg Capsule PO ×2 (09:47→19:57)
[2024-11-02] MEDS: ferrous sulfate EC 325 mg Tablet PO ×2 (09:47→19:57)
[2024-11-02] MEDS: escitalopram 10 mg Tablet PO (09:47)
[2024-11-02 09:48] VITALS: BP 128/74; PULSE 73
[2024-11-02] MEDS: methadone 10 mg Tablet 30 MG PO (09:48)
[2024-11-02] MEDS: PRENATAL VIT NO.130/IRON/FOLIC 1 EACH TABLET PO (09:48)
[2024-11-02] MEDS: ibuprofen 800 mg tablet PO ×2 (09:48→20:00)
[2024-11-02 16:48] VITALS: BP 123/72; PULSE 63; TEMP 37.2
--- NOTE | 2024-11-02 17:11 | PM.OBGYDC ---
Discharge Providers TERRITORY SALES CONSULTANT Date of Admission: 10/31/24 09:34 Date of Discharge: 11/02/24 Attending Provider at Admission: Shahriar Cortes MD Attending Provider at Discharge: Shahriar Cortes MD Primary Care Provider: Shahriar Cortes MD Diagnoses at Discharge Discharge Diagnosis (1) Status post : Status: Acute (2) 37 weeks gestation of : Status: Acute (3) Methadone use: Status: Acute Reason for Visit Reason for Visit: Ctx, Poss ROM Hospital Course Hospital Course The patient presented to the hospital with spontaneous rupture membranes.She had a history of a and desired to have a repeat . was scheduled and performed. Her spinal anesthesia was inadequate and she was sedated. Her was unremarkable. She had moderate blood loss. The remainder of her hospital stay was relatively unremarkable. Her bleeding was well-controlled. Her pain has been reasonably well-controlled as well. She is continued her methadone during hospital stay. Information Peripartum Data: Infant Delivery Method: Vaginal Physical Exam Narrative: The patient is alert and oriented. She is in no acute distress Her lungs are clear to auscultation. Her heart has a regular in rhythm. Her fundus is below her umbilicus Her incision is clean dry and intact Urinary Catheter Management: [place]: Cath Placed During This Visit: yes, but has since been removed by the nurse Reason for Continuing Indwelling Catheter: Decision to DC Catheter Urinary Catheter Date of Insertion: 10/31/24 Urinary Catheter Time of Insertion: 10:45 Date Urinary Catheter Removed: 11/01/24 Time Urinary Catheter Discontinued: 06:15 Discharge Data Studies Completed and Pending Laboratory Results WBC 12.63 10^3/uL (3.29-11.43) H 11/01/24 04:00 RBC 3.11 10^6/uL (3.85-5.65) L 11/01/24 04:00 Hgb 8.70 g/dL (11.27-16.99) L 11/01/24 04:00 Hct 27.2 % (36-47) L 11/01/24 04:00 MCV 87.5 fl (85-98) 11/01/24 04:00 MCH 28.0 pg (27-33) 11/01/24 04:00 MCHC 32.0 g/dL (30-55) 11/01/24 04:00 RDW 13.0 % (12.1-15.1) 11/01/24 04:00 Plt Count 163 10^3/cmm (157-399) 11/01/24 04:00 MPV 9.1 fL (7.4-10.4) 11/01/24 04:00 Neut % (Auto) 78.9 % 10/31/24 16:00 Lymph % (Auto) 14.1 % 10/31/24 16:00 Wood % (Auto) 5.9 % 10/31/24 16:00 Eos % (Auto) 0.3 % 10/31/24 16:00 Baso % (Auto) 0.5 % 10/31/24 16:00 Neut # (Auto) 12.52 10^3/uL (1.8-7.7) H 10/31/24 16:00 Lymph # (Auto) 2.2 10^3/uL (0.8-4.8) 10/31/24 16:00 Wood # (Auto) 0.9 10^3/uL (0.2-0.9) 10/31/24 16:00 Eos # (Auto) 0.0 10^3/uL (0.0-0.8) 10/31/24 16:00 Baso # (Auto) 0.1 10^3/uL (0.0-0.1) 10/31/24 16:00 Nucleated RBC % (auto) 0 % 10/31/24 16:00 Nucleated RBCs # 0.0 /100WBC 10/31/24 16:00 Fluid pH (paper) Positive H 10/31/24 09:33 Urine Opiates Screen Negative ng/mL (Negative) 10/31/24 09:30 Ur Barbiturates Screen Negative ng/mL (Negative) 10/31/24 09:30 Ur Phencyclidine Scrn Negative ng/mL (Negative) 10/31/24 09:30 Ur Amphetamines Screen Negative ng/mL (Negative) 10/31/24 09:30 U Benzodiazepines Scrn Negative ng/mL (Negative) 10/31/24 09:30 Urine Cocaine Screen Negative ng/mL (Negative) 10/31/24 09:30 U Marijuana (THC) Screen Positive ng/mL (Negative) H 10/31/24 09:30 Blood Type O Positive 10/31/24 09:30 Rho(D) Type Rh positive 10/31/24 09:30 Antibody Screen Negative 10/31/24 09:30 Vitals Last Vital Signs Temp 98.1 F 11/01/24 15:24 Pulse 63 11/02/24 16:48 Resp 16 11/02/24 05:09 BP 123/72 11/02/24 16:48 Pulse Ox 97 10/31/24 17:25 O2 Del Method Room Air 10/31/24 09:31 Results Labs OB ([facility]): Obstetrics US/Biophysical Profile 02/08/23 Blood Type O Positive 10/31/24 Antibody Screen Negative 10/31/24 Hct, (36-47) 27.2 % L 11/01/24 Hgb, (11.27-16.99) 8.70 g/dL L 11/01/24 Rho(D) Type Rh positive 10/31/24 Plt Count, (157-399) 163 10^3/cmm 11/01/24 Urine Opiates Screen, (Negative) Negative ng/mL 10/31/24 Ur Barbiturates Screen, (Negative) Negative ng/mL 10/31/24 Ur Phencyclidine Scrn, (Negative) Negative ng/mL 10/31/24 Ur Amphetamines Screen, (Negative) Negative ng/mL 10/31/24 U Benzodiazepines Scrn, (Negative) Negative ng/mL 10/31/24 Urine Cocaine Screen, (Negative) Negative ng/mL 10/31/24 U Marijuana (THC) Screen, (Negative) Positive ng/mL H 10/31/24 Discharge Plan Discharge Patient Disposition: Home Condition: Stable Prescriptions: New oxycodone-acetaminophen 5-325 mg Tablet 1 tab PO Q6H PRN (Reason: Moderate To Severe Pain) Qty: 30 0RF Continued methadone 5 mg Tablet 30 mg PO DAILY [id number] 1 tab PO DAILY escitalopram oxalate 10 mg tablet 10 mg PO DAILY Discontinued ondansetron HCl [Zofran] 4 mg Tablet 4 mg PO Q6H Discharge Orders: Discharge Order (Routine); Ordered 11/02/24 Ordered By: Shahriar Cortes Referrals: Shahriar Cortes MD [Primary Care Provider, [facility]] - 4-7 days Discharge Diet: Usual diet Discharge Activity: Limit activity as instructed Patient Instructions: Depression (DC), Opioid Safety (DC), Preeclampsia and Eclampsia After Delivery (GEN), Hemorrhage (DC), OB - Sophia/Hilda, OB Discharge Report, OB Food/Drug Interaction Guide, OB Care at Home, Opioid Safety, Abnormal Bleeding Discharge Attestations TERRITORY SALES CONSULTANT Time Spent in Discharge Care*: less than 30 min Coding Level of Care Code Acute Code for Chg Fwd Diagnoses Status post Z98.891 37 weeks gestation of Z3A.37 Methadone use F11.90
[2024-11-02 20:01] VITALS: BP 117/68; PULSE 60; O2SAT 100
[2024-11-02 20:02] VITALS: BP 117/68; PULSE 60; RESP 16; TEMP 36.4; O2SAT 100
== END 2024-11-02 20:02 | disposition home or self-care (01) | DRG 787 ==
LOC: OPOB 15:48 → OBGYN 15:49
PROVIDERS: Admitting Provider Family Medicine; PCP Family Medicine; Visit Provider Family Medicine
PROC: 10D00Z1 Extraction of Products of Conception, Low, Open Approach (ICD-10-PCS; CPT 59514; principal; 2024-10-31 10:30)
DX: O34.211 Maternal care for low transverse scar from previous cesarean delivery (principal); O99.324 Drug use complicating childbirth; Z3A.37 37 weeks gestation of pregnancy; N85.8 Other specified noninflammatory disorders of uterus; Z37.0 Single live birth; F11.90 Opioid use, unspecified, uncomplicated
CPT/HCPCS: 36415; 51702; 59025; 59409; 80306; 83986; 85025; 85027; 86850; 86900; 96374; 96376; 99211; J0330; J1580; J1885; J2250; J2274; J2405; J2704; J2765; J3010; J3490; J7120; J7121; J9999

== ENCOUNTER 2025-01-12 05:30 | Emergency (ER) | payer BC, MEDICAID, SELFPAY ==
--- OUTSIDE RECORDS SUMMARY | 2017-07-17 11:00 | XMS_ITS | Continuity of Care Document ---
Author Organization [facility] Address [address] [id number] [address] Phone Care Team Providers Care Product Development Engineer Name Role Phone Young Lopez DDS Unavailable [...] Diagnoses Date Provider Providers Copied on Encounter [facility], [id number], [id number], [place] tel:[phone] [facility] Encounter for dental exam and cleaning w/o abnormal findings John Vidal. [address] [place], [address], [place]. tel:[phone] Referring Provider: Young Taylor, [address] [place], [address]. tel:[phone] Family History Family Member Type Diagnosis Age At Onset No Information Payers Payer name Insurance type Covered democrat ID Jeannine griggs(alcides) Francie Dover [id number] Social History Type Description Quantity Date Captured [...]
[2025-01-12] VITALS (7 sets, daily range): BP systolic 114–152; BP diastolic 75–79; PULSE 69–89; RESP 16–18; TEMP 36.4; O2SAT 99–100
--- OUTSIDE RECORDS SUMMARY | 2025-01-12 05:39 | XMS_ITS | Encounter Summary ---
Author Organization [facility] Address [address] [place] [address] Care Team Providers Care Spiral Runner Name Role Phone Unavailable Primary Care Provider Unavailabl e Encounter Details Date Type Department Care Team (Latest Contact Info) Description 02/12/2001 Outpatient Historical [facility] Ear, Nose and Throat [address] 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
--- OUTSIDE RECORDS SUMMARY | 2025-01-12 05:39 | XMS_ITS | Encounter Summary ---
Author Organization [facility] Address [address] [place] [address] Care Team Providers Care Incubator Operator Name Role Phone Unavailable Primary Care Provider Unavailabl e Encounter Details Date Type Department Care Team (Late st Contact Info) Description 02/09/2001 Outpatient Historical [facility] Ear, Nose and Throat [address] 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
--- OUTSIDE RECORDS SUMMARY | 2025-01-12 05:39 | XMS_ITS | Encounter Summary ---
Author Organization [facility] Address [address] [place] [address] Care Team Providers Care Mortgage Advisor Name Role Phone Unavailable Primary Care Provider Unavailabl e Encounter Details Date Type Department Care Team (Latest Contact Info) Description 02/12/2001 Outpatient Historical [facility] Ear, Nose and Throat [address] 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
--- OUTSIDE RECORDS SUMMARY | 2025-01-12 05:39 | XMS_ITS | Encounter Summary ---
Author Organization [facility] Address [address] [place] [address] Care Team Providers Care Cloth Shrinking Machine Operator Name Role Phone Unavailable Primary Care Provider Unavailabl e Encounter Details Date Type Department Care Team (Latest Contact Info) Description 02/12/[address] 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
--- OUTSIDE RECORDS SUMMARY | 2025-01-12 05:39 | XMS_ITS | Encounter Summary ---
Author Organization [facility] Address [address] [place] [address] Care Team Providers Care Testing Shaking Shipping Name Role Phone Unavailable Primary Care Provider Unavailabl e Encounter Details Date Type Department Care Team (Latest Contact Info) Description 02/09/2001 Outpatient Historical [facility] Ear, Nose and Throat [address] [address] [place] [phone] Herrera Theodore [address] [place], [place] [address] Referred otogenic pain (Primary Dx); Observation for other specified suspected conditions Social History Tobacco Use Types Packs/Day Years Used Date Smoking Tobacco: Never Assessed Comments Unknown Sex and Gender Information Value Date Recorded Sex Assigned at Not on file Legal Sex Female 3:56 AM PSYCH THERAPIST Gender Identity Not on file Sexual Orientation Not on file documented as of this encounter Plan of Treatment Not on file documented as of this encounter Visit Diagnoses Diagnosis Referred otogenic pain- Primary Observation for other specified suspected conditions documented in this encounter
--- OUTSIDE RECORDS SUMMARY | 2025-01-12 05:40 | XMS_ITS | Clinical Summary ---
Author Organization [facility] Address [address] [facility] [address] [place] [address] Phone Care Team Providers Care Filter Tank Tender Name Role Phone Unavailable Primary Care Provider Unavailabl e Allergies Active Allergy Reactions Criticality Noted Date Comments Penicillins Anaphylaxis High 10/05/2011 Medications No known medications Active Problems No known active problems Immunizations Immunization Administration Dates Next Due (M-M-R II/PRIORIX)(12 MO UP) MEASLES, MUMPS AND RUBELLA VIRUS VACCINE, 0.5 ML IM/SUBCUT 03/06/2001 (VARIVAX)(12 MOS UP)VARICELL A VIRUS VACCINE (PF) 0.5 ML, SUB CUT 03/06/2001 Dt Dtp Dtap Vaccine 10/23/2001, 1,2000,1999 HIB, Unspecified Formulation 03/06/2001, 2000,2000,1999 Hepatitis B Vaccine 2000,2000,1999 IPV/OPV 03/06/2001,2000,2000 Social History Tobacco Use Types Packs/Day Years Used Date Smoking Tobacco: Never Smokeless Tobacco: Never Alcohol Use Standard Drinks/Week Comments No 0 (1 standard drink = 0.6 oz pur e alcohol) Comments No Sex and Gender Information Value Date Recorded Sex Assigned at Not on file 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 Gender Identity Not on file Sexual Orientation Not on file Occupation Industry Job Start Date Job End Date Not on file Not on file Not on file Not on file Last Filed Vital Signs Vital Sign Reading Time Taken Comments Blood Pressure 115/78 06/14/2020 4:18 PM STRIKE OFF MACHINE OPERATOR Pulse 106 12/14/2011 8:46 AM CDT Temperature 36.4 C (97.5 F) 06/14/2020 4:18 PM STRIKE OFF MACHINE OPERATOR Respiratory Rate 20 06/14/2020 4:18 PM STRIKE OFF MACHINE OPERATOR Oxygen Saturation 100% 06/14/2020 4:18 PM STRIKE OFF MACHINE OPERATOR Inhaled Oxygen Concentration - - Weight 39.3 kg (86 lb 9.6 oz) 06/14/2020 2:54 PM STRIKE OFF MACHINE OPERATOR Height 147.3 cm (4' 10 ) 06/14/2020 2:54 PM STRIKE OFF MACHINE OPERATOR Body Mass Index 18.1 06/14/2020 2:54 PM STRIKE OFF MACHINE OPERATOR Plan of Treatment Health Maintenance Due Date Last Done Comments DTAP/TDAP/TD VACCINES (5 - Tdap) 02/20/2011 10/23/2001, 2000, 2000, Additional history exists HPV VACCINES (1 - 3-dose series) 02/20/2015 CERVICAL CANCER SCREENING 02/20/2021 HPV/Cotest (21-29) 02/20/2021 PAP SMEAR 02/20/2021 INFLUENZA VACCINE (#1) 2025 HEPATITIS B VACCINES Completed 2000, 2000, 2000 Insurance [place]ICAID [place] BENEFIT SYS ADMIN PRACTITIONER ONLY [place]
--- OUTSIDE RECORDS SUMMARY | 2025-01-12 05:40 | XMS_ITS | Clinical Summary ---
Author Organization [employer] Address [address] Attn: Epic Prelude ADT [place]EMI GUY [address] Care Team Providers Care Student Affairs Dean Name Role Phone Unavailable Primary Care Provider Unavailabl e Allergies Active Allergy Reactions Criticality Noted Date Comments Penicillins Anaphylaxis High 10/05/2011 Immunizations Immunization Administration Dates Next Due (M-M-R [...] = 0.6 oz pur e alcohol) Comments Unknown Sex and Gender Information Value Date Recorded Sex Assigned at Not on file Legal Sex Female 11:01 AM MIDDLE SCHOOL GUIDANCE COUNSELOR Gender Identity Not on file Sexual Orientation Not on file Last Filed Vital Signs Vital Sign Reading Time Taken Comments Blood Pressure 115/78 06/14/2020 4:18 PM MIDDLE SCHOOL GUIDANCE COUNSELOR Pulse - - Temperature 36.4 C (97.5 F) 06/14/2020 4:18 PM MIDDLE SCHOOL GUIDANCE COUNSELOR Respiratory Rate 20 06/14/2020 4:18 PM MIDDLE SCHOOL GUIDANCE COUNSELOR Oxygen Saturation - - Inhaled Oxygen Concentration - - Weight 39.3 kg (86 lb 9.6 oz) 06/14/2020 2:54 PM MIDDLE SCHOOL GUIDANCE COUNSELOR Height 147.3 cm (4' 10 ) 06/14/2020 2:54 PM MIDDLE SCHOOL GUIDANCE COUNSELOR Body Mass Index 18.1 06/14/2020 2:54 PM MIDDLE SCHOOL GUIDANCE COUNSELOR Plan of Treatment Health Maintenance Due Date Last Done Comments DTAP/TDAP/TD VACCINES (5 - Tdap) 02/20/2011 10/23/2001, 2000, 2000, Additional history exists HPV VACCINES (1 - 3-dose series) 02/20/2015 CERVICAL CANCER SCREENING 02/20/2021 HPV/Cotest (21-29) 02/20/2021 PAP SMEAR 02/20/2021 INFLUENZA VACCINE (#1) 2025 HEPATITIS B VACCINES Completed 2000, 2000, 2000
--- NOTE | 2025-01-12 06:01 | W.ED.ABDPA2 ---
HPI - Abdominal Pain General: Chief Complaint: Abdominal Pain Stated Complaint: ABD Pain Time Seen by Provider: 01/12/25 05:57 History of Present Illness: 24-year-old female presents emergency room complaining of right-sided abdominal pain that began last night. She had a 3 months ago. Periods have been very irregular since then has had 1. Patient was very light. She denies any constipation no nausea vomiting or diarrhea. Associated Symptoms: Denies chills, coffee ground emesis, diarrhea, dysuria, fever(s), hematochezia, hematemesis, melena, nausea and vomiting Related Data Date of Last Menstrual Period: 01/11/25 Home Medications ?Medication ?Instructions ?Recorded ?Confirmed Marijuana 1 unit inhalation QAM PRN Pain 01/12/25 01/12/25 Previous Rx's ?Medication ?Instructions ?Recorded cephalexin 500 mg capsule 500 mg PO TID 7 days #21 caps 01/12/25 Allergies Allergy/AdvReac Type Severity Reaction Status Date / Time amoxicillin Allergy ALGY-Anaphy Verified 01/12/25 05:44 laxis Penicillins Allergy ALGY-Anaphy Verified 01/12/25 05:44 laxis Review of Systems Const: Denies: fever(s) or chills Card: Denies: chest pain Resp: Denies: dyspnea GI: Reports: abdominal pain; Denies: nausea, vomiting, hematemesis, coffee ground emesis, diarrhea, hematochezia or melena : Denies: dysuria, urinary frequency or urinary urgency Musc: Denies: neck pain or back pain Skin/Breast: Denies: rash PFSH ED PFSH: Surgical History Status post History of section complicating Family History Father Hypertension Social History Smoking and tobacco/nicotine status: former use of tobacco/nicotine Quit status (tobacco/nicotine): considering quitting Second hand smoke exposure: No Substance/Drug Use: former Former substance use details: Currently on methadone and history of marijuana use during her . Female Reproductive History: Date of last menstrual period: 01/11/25 Physical Exam Const: COMMON NORMALS: no acute distress GENERAL APPEARANCE: cooperative and comfortable ORIENTATION/CONSCIOUSNESS: Yes awake, Yes oriented to person, Yes oriented to place and Yes oriented to time HENMT: COMMON NORMALS: normocephalic, atraumatic and hearing grossly normal bilaterally HEAD & SCALP: normocephalic and atraumatic Resp: COMMON NORMALS: normal respiratory effort, No retractions, No use of accessory muscles and clear to auscultation bilaterally AUSCULTATION: clear to auscultation bilaterally Cardio: COMMON NORMALS: regular rate, regular rhythm and No murmurs present (Cardio) RATE: regular rate RHYTHM: regular rhythm GI: COMMON NORMALS: Soft to palpation and No hepatosplenomegaly present AUSCULTATION: Yes normoactive bowel sounds PALPATION: Yes Soft to palpation, No Tenderness to palpation present (GI), No Guarding due to palpation present (GI) and Yes No hepatosplenomegaly present Extremity: COMMON NORMALS: normal to inspection, capillary refill normal, no clubbing, cyanosis or edema, no calf tenderness and no pedal edema Neuro: SENSORIUM/ORIENTATION: Yes oriented to person, Yes oriented to place and Yes oriented to time Skin: COMMON NORMALS: no rashes or lesions noted GENERAL SKIN EXAM: no rashes or lesions noted Course Vital Signs: Vital signs: Vital Signs Temperature 97.6 F 01/12/25 05:35 Pulse Rate 89 01/12/25 09:02 Respiratory Rate 16 01/12/25 06:21 Blood Pressure 120/75 01/12/25 09:02 Pulse Oximetry 100 01/12/25 09:02 Oxygen Delivery Me thod Room Air 01/12/25 09:02 MDM - Abdominal Pain Medical Decision Making CT shows pancreatic cyst no acute appendicitis questionable cystitis confirmed with laboratory tests including leukocytosis and WBCs on micro and urine. Given 1 g ceftriaxone here discharged home with cephalexin. Reviewed the finding of the pancreatic cyst with the patient encouraged her to follow-up with her primary care doctor to have advanced imaging done to further evaluate. Medical Records I reviewed the patient's medical records. Lab Data I reviewed the patient's lab results. 01/12/25 05:45 01/12/25 05:45 Labs/Radiology: Radiology Impressions Abdomen/Pelvis CT 01/12/25 06:29 IMPRESSION: 1. No acute abnormality is evident. Appendix not confidently identified however no overt evidence of acute appendicitis. Recommend clinical correlation and further evaluation if symptoms persist or worsen. 2. Mild bilateral hydronephrosis. No calcified urolithiasis. 3. Heterogenous uterine enhancement with endometrial prominence, may be physiologic in a premenopausal patient. 4. Mild circumferential urinary bladder wall thickening. Recommend correlation with urinalysis for cystitis. 5. Subcentimeter cystic focus in the pancreatic tail, possibly reflecting a side branch intraductal papillary mucinous neoplasm (IPMN). Minimal prominence of the downstream main pancreatic duct. Consider nonemergent pancreatic MRI/MRCP for further characterization. Laboratory Results WBC 16.32 10^3/uL (3.29-11.43) H 01/12/25 05:45 RBC 4.94 10^6/uL (3.85-5.65) 01/12/25 05:45 Hgb 13.20 g/dL (11.27-16.99) 01/12/25 05:45 Hct 44.1 % (36-47) 01/12/25 05:45 MCV 89.3 fl (85-98) 01/12/25 05:45 MCH 26.7 pg (27-33) L 01/12/25 05:45 MCHC 29.9 g/dL (30-55) L 01/12/25 05:45 RDW 14.3 % (12.1-15.1) 01/12/25 05:45 Plt Count 349 10^3/cmm (157-399) 01/12/25 05:45 MPV 8.8 fL (7.4-10.4) 01/12/25 05:45 Neut % (Auto) 69.2 % 01/12/25 05:45 Lymph % (Auto) 25.0 % 01/12/25 05:45 [place] % (Auto) 4.2 % 01/12/25 05:45 Eos % (Auto) 0.8 % 01/12/25 05:45 Baso % (Auto) 0.4 % 01/12/25 05:45 Neut # (Auto) 11.30 10^3/uL (1.8-7.7) H 01/12/25 05:45 Lymph # (Auto) 4.1 10^3/uL (0.8-4.8) 01/12/25 05:45 [place] # (Auto) 0.7 10^3/uL (0.2-0.9) 01/12/25 05:45 Eos # (Auto) 0.1 10^3/uL (0.0-0.8) 01/12/25 05:45 Baso # (Auto) 0.1 10^3/uL (0.0-0.1) 01/12/25 05:45 Nucleated RBC % (auto) 0 % 01/12/25 05:45 Nucleated RBCs # 0.0 /100WBC 01/12/25 05:45 Sodium 139 mmol/L (136-145) 01/12/25 05:45 Potassium 4.5 mmol/L (3.5-5.1) 01/12/25 05:45 Chloride 101 mmol/L (98-107) 01/12/25 05:45 Carbon Dioxide 24 mmol/L (22-29) 01/12/25 05:45 Anion Gap 18.5 (5-19) 01/12/25 05:45 BUN 18 mg/dL (6-20) 01/12/25 05:45 Creatinine 0.7 mg/dL (0.5-0.9) 01/12/25 05:45 GFR Calculation 102.8 mL/min (90-130) 01/12/25 05:45 Glucose 87 mg/dL (65-115) 01/12/25 05:45 Calculated Osmolality 289 mOsm/kg (285-295) 01/12/25 05:45 Calcium 9.5 mg/dL (8.5-10.5) 01/12/25 05:45 Total Bilirubin 0.5 mg/dL (0.15-1.2) 01/12/25 05:45 AST 23 U/L (0-32) 01/12/25 05:45 ALT 23 U/L (0-33) 01/12/25 05:45 Alkaline Phosphatase 89 U/L (35-105) 01/12/25 05:45 Total Protein 7.7 g/dL (6.6-8.7) 01/12/25 05:45 Albumin 4.5 g/dL (3.5-5.2) 01/12/25 05:45 Globulin 3.2 g/dL (1.3-4.6) 01/12/25 05:45 Lipase 52 U/L (13-60) 01/12/25 05:45 HCG, Qual Negative (Negative) 01/12/25 05:45 Urine Color Yellow (Yellow) 01/12/25 06:20 Urine Appearance Clear (CLEAR) 01/12/25 06:20 Urine pH 5.5 (5-7) 01/12/25 06:20 Ur Specific [place] 1.019 (1.005-1.030) 01/12/25 06:20 Urine Protein Negative (Negative) 01/12/25 06:20 Urine Glucose (UA) Negative (Normal) 01/12/25 06:20 Urine Ketones Negative (Negative) 01/12/25 06:20 Urine Blood 1+ (Negative) A 01/12/25 06:20 Urine Nitrate Negative (Negative) 01/12/25 06:20 Urine Bilirubin Negative (Negative) 01/12/25 06:20 Urine Urobilinogen 0.2 mg/dL (Negative) 01/12/25 06:20 Ur Leukocyte Esterase Trace (Negative) A 01/12/25 06:20 Urine RBC 0-2 /hpf (0-2) 01/12/25 06:20 Urine WBC 11-20 /hpf (0-5) H 01/12/25 06:20 Ur Squamous Epith Cells 6-10 /hpf (0-5) 01/12/25 06:20 Amorphous Sediment Not Reportable 01/12/25 06:20 Urine Bacteria 2+ /hpf (NONE) H 01/12/25 06:20 Hyaline Casts 0-4 /lpf H 01/12/25 06:20 All radiology interpretation(s) finalized by discharge Discharge Plan Discharge Patient Disposition: Home Clinical Impression: Cystitis, Pancreas cyst Condition: Stable Prescriptions: New cephalexin 500 mg capsule 500 mg PO TID 7 Days Qty: 21 0RF No Action Marijuana 1 unit inhalation QAM PRN (Reason: Pain) Discharge Orders: Discharge ED (Routine); Ordered 01/12/25 Ordered By: Ziggy Ellington Referrals: Shahriar Cortes MD [Primary Care Provider, Family Practice] Discharge Diet: Usual diet Discharge Activity: Resume usual activity Patient Instructions: Opioid Safety, Pain Management, Patient Portal & Carlo Instructions Activity Restrictions/Additional Instructions: [facility]. It is very important that you follow up as instructed or that you return to the Emergency Department should you have concerns or if your condition changes or worsens in any way. You were seen in the emergency room with abdominal pain. CT and lab work shows you have a mild bladder infection we have given antibiotic here and discharged home with oral antibiotics. CT did not show any signs of acute appendicitis. The CT did show a cyst in the pancreas that should be followed up with further imaging through your primary care physician. Print Language: Norwegian Coding Level of Care Code ED Supervisor Sleeping Bag Department for Jose Luis Montanez
[2025-01-12 06:12] LABS: Hematocrit 44.1 % (36-47); Hemoglobin 13.20 g/dL (11.27-16.99); Mean Corpuscular HGB Conc 29.9 g/dL (30-55); Mean Corpuscular Hemoglobin 26.7 pg (27-33); Mean Corpuscular Volume 89.3 fl (85-98); Nucleated Red Blood Cells % 0 %; Platelet Count 349 10^3/cmm (157-399); Red Blood Count 4.94 10^6/uL (3.85-5.65); White Blood Count 16.32 10^3/uL (3.29-11.43)
[2025-01-12] MEDS: morphine 4 mg/mL SDV 1 mL IVP (06:16)
[2025-01-12 06:17] LABS: HCG, Serum Qual Negative (Negative)
[2025-01-12] MEDS: ondansetron 2 mg/ML SDV 2 mL 4 MG IVP (06:17)
[2025-01-12 06:20] LABS: Alanine Aminotransferase 23 U/L (0-33); Albumin Level 4.5 g/dL (3.5-5.2); Alkaline Phosphatase 89 U/L (35-105); Anion Gap 18.5 (5-19); Aspartate Amino Transferase 23 U/L (0-32); Blood Urea Nitrogen 18 mg/dL (6-20); Calcium 9.5 mg/dL (8.5-10.5); Carbon Dioxide 24 mmol/L (22-29); Chloride 101 mmol/L (98-107); Creatinine Clr Calc Pharmacy 84.3010; Globulin 3.2 g/dL (1.3-4.6); Glucose 87 mg/dL (65-115); Lipase 52 U/L (13-60); Osmolality Calculated 289 mOsm/kg (285-295); Potassium 4.5 mmol/L (3.5-5.1); Sodium 139 mmol/L (136-145); Total Protein 7.7 g/dL (6.6-8.7)
--- NOTE | 2025-01-12 06:29 | CTR_ITS ---
PROCEDURE INFORMATION: Exam: CT Abdomen And Pelvis With Contrast Exam date and time: 01/12/2025 6:59 AM Age: 24 years old Clinical indication: Abdominal pain; Localized; Right lower quadrant (rlq); Additional info: Rlq abd pain TECHNIQUE: Imaging protocol: Computed tomography of the abdomen and pelvis with contrast. Radiation optimization: All CT scans at this facility use at least one of these dose optimization techniques: automated exposure control; mA and/or kV adjustment per patient size (includes targeted exams where dose is matched to clinical indication); or iterative reconstruction. Contrast material: OMNI 350; Contrast volume: 100 ml; Contrast route: INTRAVENOUS (IV); COMPARISON: CT abdomen pelvis w con* [id number] 06/19/2021 11:40 AM RADIATION DOSE METRICS: Total DLP (mGy-cm): 279.94 FINDINGS: Liver: No mass. Patent main portal vein. Gallbladder and biliary ducts: No calcified stones. No ductal dilation. Pancreas: Subcentimeter cystic focus in the pancreatic tail (series 3, image 28). Minimal prominence of the main pancreatic duct. Spleen: Unremarkable. Adrenal glands: No sizable mass. Kidneys and ureters: Mild bilateral hydronephrosis. No calcified urolithiasis. No evidence of a solid renal mass. Stomach and bowel: Unremarkable stomach. Nondistended bowel loops. Large amount of retained stool. No focal inflammatory change. Appendix: Not confidently identified. No overt evidence of acute appendicitis. Intraperitoneal space: No free air. No significant fluid collection. Vasculature: No abdominal aortic aneurysm. Lymph nodes: No pathologically enlarged lymph nodes. Urinary bladder: Mild circumferential urinary bladder wall thickening. Reproductive: Heterogenous uterine enhancement with endometrial prominence. Bones/joints: No acute fracture. Soft tissues: Small fat containing ventral abdominal wall hernia. CT/CT abdomen pelvis w con* [id number] IMPRESSION: 1. No acute abnormality is evident. Appendix not confidently identified however no overt evidence of acute appendicitis. Recommend clinical correlation and further evaluation if symptoms persist or worsen. 2. Mild bilateral hydronephrosis. No calcified urolithiasis. 3. Heterogenous uterine enhancement with endometrial prominence, may be physiologic in a premenopausal patient. 4. Mild circumferential urinary bladder wall thickening. Recommend correlation with urinalysis for cystitis. 5. Subcentimeter cystic focus in the pancreatic tail, possibly reflecting a side branch intraductal papillary mucinous neoplasm (IPMN). Minimal prominence of the downstream main pancreatic duct. Consider nonemergent pancreatic MRI/MRCP for further characterization.
[2025-01-12 06:31] LABS: Glucose Urine UA Negative (Normal); Nitrate Urine Negative (Negative); Specific Gravity, Urine 1.019 (1.005-1.030)
[2025-01-12 06:36] LABS: Add Urine Microscopic? YES
[2025-01-12] MEDS: iohexol 350 mg/mL 500 mL Btl (per mL) IV (07:02)
[2025-01-12] MEDS: cefTRIAXone 1,000 mg SDV 1000 MG IVP (09:03)
== END 2025-01-12 09:22 | disposition home or self-care (01) ==
PROVIDERS: Emergency Provider Family Medicine; PCP Family Medicine
DX: N30.90 Cystitis, unspecified without hematuria (principal); K86.2 Cyst of pancreas; Z87.891 Personal history of nicotine dependence
CPT/HCPCS: 74177; 80053; 81001; 83690; 84703; 85025; 87086; 96361; 96374; 96375; 99285; J0696; J2270; J2405; J7030

== ENCOUNTER 2025-04-02 18:11 | Emergency (ER) | payer BC, MEDICAID, SELFPAY ==
[2025-04-02 18:07] VITALS: BP 136/85; PULSE 96; RESP 18; TEMP 36.7; O2SAT 99; BMI 19.8
[2025-04-02 18:13] VITALS: BP 136/85; PULSE 97; O2SAT 98
--- OUTSIDE RECORDS SUMMARY | 2025-04-02 18:18 | XMS_ITS | Encounter Summary ---
Author Organization [facility] Address [address] [place] [address] Care Team Providers Care Press Operator Printing Name Role Phone Unavailable Primary Care Provider Unavailabl e Encounter Details Date Type Department Care Team (Latest Contact Info) Description 02/09/2001 Outpatient Historical [facility] Ear, Nose and Throat 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
--- OUTSIDE RECORDS SUMMARY | 2025-04-02 18:18 | XMS_ITS | Encounter Summary ---
Author Organization [facility] Address [address] [place] [address] Care Team Providers Care Creative Arts Music Therapist Name Role Phone Unavailable Primary Care Provider Unavailabl e Encounter Details Date Type Department Care Team (Latest Contact Info) Description 02/12/2001 Outpatient Historical [facility] Ear, Nose and Throat 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
--- OUTSIDE RECORDS SUMMARY | 2025-04-02 18:18 | XMS_ITS | Data Portability ---
Author Organization NOEMI Praveen [facility], .[facility], [facility] Address [address] [address] Care Team Providers Care Record Center Coordinator Name Role Phone NINO ALMANZA Primary Care Provider Unavaila ble Assessment Encounter Date Assessment Date Assessment LastModified by Organization Details LastModified Time 11/18/2024 11/18/2024 Anxiety is improved but she is still struggliung. Not available 11/18/2024 10:48:03 12/21/2024 12/21/2024 Anxiety is improved but she is still struggliung. Not available 12/21/2024 11:03:30 Plan of Treatment Reminders Order Date Submit Date Provider Last Modified By Organization Details Last Modified Time Details Appointments OFFICE VISIT 20 2024 12:30P M Nino Almanza MD Not available Not available Not available Lab streptoco ccus group B, culture, unspecifi ed specimen 2024 025 [place] [employer] [facility], [address] [address], [address] [place], [address], 10/24/2024 08:55:12 Referral mental health counselor referral 2024 025 [email or web address] Not available 12/07/2024 09:31:52 Procedures None recorded. Surgeries None recorded. Imaging None recorded. Medication Orders escitalop raghu 20 mg tablet 2024 025 [facility] [place], [facility] [place], [address], 11/08/2024 16:10:14 ondansetr on 4 mg disintegr ating tablet 2024 025 [facility] [place], [address] [place], [address], 11/18/2024 13:04:50 Patient TargetsNo targets recorded. Patient InstructionsNo instructions recorded. Reason for Referral Mental Health Counselor Refe rral for Anxiety Referring Physician: Nion Almanza, Family Medicine, Encounter Date: 11/18/2024 Results Created Date Observation Date Name Description Value Unit Range Abnormal Flag Note LastModifiedBy Organization Detail LastModifiedTime 10/22/1910/24/2024 CULTU RE, GROUP B STREP WITH SUSCE PTIBI LITY culture, group B strep with susceptibili ty SEE NOTE CULTU RE, GROUP B STREP WITH SUSCE PTIBI LITY Micro Numbe r: [id number] Test Statu s: Final Speci men Sourc e: Vagin al/an orect al Speci men Quali ty: Adequ ate Resul t: No group B Strep tococ cus isola venancio Note per CDC guide lines optim al recov chey is achie abhay by swabb ing both the lower vagin a and rectu m (thro ugh the anal sphin cter) . Not Available [address] [address] [address] , [place], [address], 10/24/2024 08:55:12 10/13/1909/29/2024 US, obste tric, 3rd trime ster No observ ation record ed. Not Available 10/13 08:55:54 Result Notes None recorded. Problems Name Problem SNOMED Code Status Onset Date Resolution Date Notes Provider Name and Address Organization Details Recorded Time Adenoide ctomy planned [id number] Completed 201604/24/2017 Adenoide ctomy - Status is Inactive ; 04/24/20 17 5:04PM by Tessa Hudson CMT, Annotati on/Adden dum; Promoted ; acuity set as *; Not Available [facility] 03:10:15 Finding of body mass index 614670466 Completed 202208/26/2024 BODY MASS INDEX (BMI) LESS THAN OR EQUAL TO 19 IN ADULT; Recorded 09/10/19 12:36PM by Mary Jo Valle RN, Office Visit; Promoted ; acuity set as *; BMI LESS THAN 19,ADULT ; Recorded 07/04/19 6:57AM by Itzel Strong LPN, Office Visit; Promoted ; acuity set as *; ; Start Date : 07/04/19 SONIYA BARRY ER null, [facility] 5 13:41:26 [facility] di[facility] [id number] 410 Completed 2022 Nino Almanza MD [address] [place] [address], [address] [facility] 3 06:59:26 Normal pregnanc y in multigra diogo 09091663751 4106 Completed 202211/18/2024 SONIYA BARRY ER null, [facility] 09:53:58 Urinary tract infectio n in pregnanc y 548093484 Active 2024 MARY JO felix [facility] 14:12:40 Postpart um depressi on 46773962 Active 2024 SONIYA BARRY ER null, [facility] 09:53:51 Anxiety 81661956 Active 2024 [facility] 09:[facility]47 Problem Notes None recorded. Procedures Surgical History Date Name Laterality Status Provider Name and Address Organization Details Recorded Time 023 section completed SONIYA WILKERSON [facility] 02/18/2023 14:53:47 023 Date of Last Pap Smear completed [facility] [place] 02/18/2023 14:52:25 023 sampling of cervix for Papanicolaou smear completed [facility] [place] 08/26/2024 13:43:06 tonsillectomy completed [facility] [place] 08/26/2024 13:43:38 Imaging Results None recorded. Procedure Notes None recorded. Medical Equipment None Reported. Allergies Allergen ID Allergen Name Allergen Category Reaction Reaction Severity Criticality Documentation Date Start Date Code Code System Note Provider Name and Address Organization Details Recorded Time 1660 Product containin g penicilli n (product) medicatio n Not available Not available Not available 10/07/2022 95432 8001 SNOMED [facility] 13:26:10 81003 penicilli n G sodium medicatio n anaphylax is Not available Not available 01/18/2023 9900 RxNorm React ion: Anaph ylaxi s, Diffi culty breat rayna, Diffi culty swall owing ; Comme nt: Recor ded 09/09 12:36 PM by Joanne Valle RN, Offic e Visit ; Promo venancio; Signi ficfabiano ce: *; Reaso n: Drug aller gy; ; Not Available [facility] 3 02:28:37 54234 amoxicill in medicatio n Not available Not available Not available 07/29/2024 723 RxNorm [facility]on [facility] 08:44:30 Medications Name Sig Start Date [...] tablet every 8 hours by oral route. 11/18 completed Not Available Not Available Not Available meloxicam [...] -acetamin ophen 5 mg-325 mg tablet TAKE 1 TABLET BY MOUTH EVERY 6 HOURS NEEDED FOR moderate TO severe pain 11/08 completed Not Available Not Available Not Available famotidin e 20 mg tablet TAKE ONE TABLET BY MOUTH TWICE DAILY NEEDED 02/18 completed Not Available Not Available Not Available cephalexi n 500 mg capsule take 1 capsule BY MOUTH THREE TIMES DAILY for 7 days active Not Available Not Available No t Available promethaz ine 25 mg tablet TAKE [...] take 1 capsule BY MOUTH TWICE DAILY 11/18 completed Not Available Not Available Not Available norethind deidra (contrace ptive) 0.35 mg tablet TAKE 1 TABLET BY MOUTH EVERY DAY 08/05 completed Not Available Not Available Not Available ondansetr on 4 mg disintegr ating tablet place ONE tablet ON TONGUE EVERY 6 HOURS NEEDED 11/18 completed Not Available Not Available Not Available escitalop raghu 10 mg tablet TAKE 1 TABLET BY MOUTH EVERY DAY 11/18 completed dose increase d Not Available Not Available Not Available escitalop raghu 20 mg tablet TAKE 1 TABLET BY MOUTH EVERY DAY active Not Available Not Available No t Available nitrofura ntoin monohydra te/macroc rystals 100 [...] completed Recorded 08/12/19 9:23AM by Mary Jo Valle RN, Office Visit; Refill Quantity : 1; [...] Heart rate Respiratory rate Body temperature Systolic And Diastolic Provider Name and Address Organization Details Last Updated DateTime 5 149.23 cm 20.8 kg/m2 45351.8 2 g 98 % 98 % 84 /min 18 /min 98.3 [degF] 120/64 mm[Hg] SONIYA LEGGETT [facility] 5 13:52:25 Date Recorded Body height Body mass index (BMI) Body weight Respiratory rate Body temperature Heart rate Oxygen saturation Oxygen saturation in Arterial blood by Pulse oximetry Systolic And Diastolic Provider Name and Address Organization Details Last Updated DateTime 5 149.23 cm 21 kg/m2 67692.4 1 g 16 /min 98.2 [degF] 80 /min 98 % 98 % 104/60 mm[Hg] MARY JO VALLE [facility] 5 15:19:17 Date Recorded Body height Body mass index (BMI) Body weight Oxygen saturation Oxygen saturation in Arterial blood by Pulse oximetry Heart rate Respiratory rate Body temperature Systolic And Diastolic Provider Name and Address Organization Details Last Updated DateTime 5 149.23 cm 17.1 kg/m2 15265.4 6 g 98 % 98 % 86 /min 18 /min 98.4 [degF] 122/70 mm[Hg] [facility] 13:25:45 Date Recorded Body height Body mass index (BMI) Body weight Oxygen saturation Oxygen saturation in Arterial blood by Pulse oximetry Heart rate Respiratory rate Body temperature Systolic And Diastolic Provider Name and Address Organization Details Last Updated DateTime 5 149.23 cm 17.6 kg/m2 66531.3 4 g 98 % 98 % 90 /min 18 /min 98.6 [degF] 110/70 mm[Hg] [facility] 10:08:46 Date Recorded Body height Body mass index (BMI) Body weight Oxygen saturation Oxygen saturation in Arterial blood by Pulse oximetry Heart rate Body temperature Respiratory rate Systolic And Diastolic Provider Name and Address Organization Details Last Updated DateTime 5 149.23 cm 17.4 kg/m2 94118.7 5 g 98 % 98 % 101 /min 98.2 [degF] 16 /min 98/64 mm[Hg] [facility]ARY [facility] 10:55:54 Social History Question Answer Notes LastModified by Organizat ion Details LastModified Time Tobacco Smoking Status Former Smoker [facility]ix [facility] 01/21/2023 09:35:41 Which Illicit Or Recreational Drugs Have You Used? Marijuana Information not available 09/13/2024 What Was The Date Of Your Most Recent Tobacco Screening? 11/18/2024 Information not available 11/18/2024 What Is Your Relationship Status? Domestic Partner Information not available 01/21/2023 How Much Tobacco Do You Smoke? No Information not available 09/13/2024 Sex: Unknown Functional Status Question Answer Note LastModified by Organizat ion Details LastModified Time Do you use any illicit or recreational drugs? Yes Information not available 09/13/2024 What is your level of alcohol consumption? None Information not available 09/13/2024 Mental Status None recorded. Family History Relationship [...] Hypothyroidism N Lung Disease N COPD N Developmental or Behavioral Disorders N Defects or Inherited Disease N Breast Problem N Difficulty Swallowing N Anesthesia Complications N Anxiety Disorder Y Meniere's disease N Muscle, Joint, or Bone Problems N Vision or Eye Problems N Arthritis N Infertility N Polyps N Cancer N Stroke N Varicosities N Endometriosis N Bladder or Kidney Problems [...] N Date of Last Pap Smear 08/12/2022 Date of LMP 12/19/2024 LMP Definite Obstetrics History GPAL:G 3 P 2 0 1 2 Type Value Full Term 2 Spontaneous 1 Living 2 Total 3 Immunizations Vaccine Type Date Status Note Provider Nam e and Address Organization Details Recorded Time Influenza, split virus, trivalent, preservative 7 completed Not Available [facility] 08/05/2023 15:43:07 Influenza, split virus, trivalent, preservative 8 completed Not Available [facility] 08/05/2023 15:43:07 HPV9 6 completed TREBA NEUSCHWANDER null, [facility] 12/02/2022 12:00:18 HPV9 9 completed TREBA NEUSCHWANDER null, [facility] 12/02/2022 12:00:18 HPV9 7 completed TREBA NEUSCHWANDER null, [facility] 12/02/2022 12:00:18 IPV 1 completed TREBA NEUSCHWANDER null, [facility] 12/02/2022 12:00:18 IPV 1 completed TREBA NEUSCHWANDER null, [facility] 12/02/2022 12:00:18 IPV 5 completed TREBA NEUSCHWANDER null, [facility] 12/02/2022 12:00:18 IPV 0 completed TREBA NEUSCHWANDER null, [facility] 12/02/2022 12:00:18 MMR 1 completed TREBA NEUSCHWANDER null, [facility] 12/02/2022 12:00:18 MMR 5 completed TREBA NEUSCHWANDER null, [facility] 12/02/2022 12:00:18 Tdap 5 completed TREBA NEUSCHWANDER null, [facility] 12/02/2022 12:00:18 varicella 1 completed TREBA NEUSCHWANDER null, [facility] 12/02/2022 12:00:18 Hep B, unspecified formulation 0 completed TREBA NEUSCHWANDER null, [facility] 12/02/2022 12:00:18 Hep B, adolescent/high risk infant 1 completed TREBA NEUSCHWANDER null, [facility] 12/02/2022 12:00:18 Hep B, adolescent/high risk infant 0 completed TREBA NEUSCHWANDER null, [facility] 12/02/2022 12:00:18 Hep A, ped/adol, 2 dose 6 completed TREBA NEUSCHWANDER null, [facility] 12/02/2022 12:00:18 Hep A, ped/adol, 2 dose 7 completed TREBA NEUSCHWANDER null, [facility] 12/02/2022 12:00:18 Hib (PRP-T) 1 [facility] 12:00:18 Hib (PRP-T) 1 completed TREBA NEUSCHWANDER null, [facility] 12/02/2022 12:00:18 Hib (PRP-T) 1 completed TREBA NEUSCHWANDER null, [facility] 12/02/2022 12:00:18 Hib (PRP-T) 0 completed TREBA NEUSCHWANDER null, [facility] 12/02/2022 12:00:18 meningococcal MCV4P 6 completed TREBA NEUSCHWANDER null, [facility] 12/02/2022 12:00:18 DTaP 1 completed TREBA NEUSCHWANDER null, [facility] 12/02/2022 12:00:18 DTaP 2 completed TREBA NEUSCHWANDER null, [facility] 12/02/2022 12:00:18 DTaP 1 completed TREBA NEUSCHWANDER null, [facility] 12/02/2022 12:00:18 DTaP 5 completed TREBA NEUSCHWANDER null, [facility] 12/02/2022 12:00:18 DTaP 0 completed TREBA NEUSCHWANDER null, [facility] 12/02/2022 12:00:18 Past Encounters Encounter ID Performer Location Encounter Start Date Encounter Closed Date Diagnosis/Indication Diagnosis SNOMED-CT Code Diagnosis ICD10 Code Diagnosis IMO Codes Diagnosis Note [id number] Nino [address]man[address] MD [facility] ([facility]) [address] [place] [address] 84839-853 5 10/07/2022 12:22:17 10/11/2022 15:58:29 Normal in multigravida 3960338763 27291 Z34.82 [id number] Nino Almanza MD [facility]) [address] [place] [address] [id number] 5 10/08/2022 13:59:50 10/08/2022 15:31:53 Normal in multigravida 0898381833 37794 Z34.82 [id number] Nino Almanza MD [facility] ([facility]) [address] [place] [address] [id number] 5 11/04/2022 12:25:29 11/04/2022 18:35:26 Normal in multigravida 5330838011 15300 Z34.82 Gestation period, 24 weeks 157129512 Z3A.24 [id number] Nino Almanza MD [facility] ([facility]) [address] [place] [address] [id number] 5 12/02/2022 11:13:26 12/02/2022 20:19:07 43742572 Z33.1 Gestation period, 28 weeks 40434198 Z3A.28 Heartburn 07062214 R12 [id number] Nino Amlanza MD [facility] ([facility]) [address] [place] [address] [id number] 5 12/23/2022 10:54:30 12/23/2022 13:49:59 11940351 Z33.1 Gestation period, 31 weeks 59769952 Z3A.31 [id number] Nino Almanza MD [facility] ([facility]) [address] [place] [address] [id number] 5 01/06/2023 12:41:17 01/06/2023 15:16:29 Normal in multigravida 0747471957 19648 Z34.83 Gestation period, 33 weeks 37871120 Z3A.33 [id number] Nino Almanza MD [facility]) [address] [place] [address] [id number] 5 01/15/2023 13:58:50 01/15/2023 18:42:32 [id number] Nino Almanza MD [facility] ([facility]) [address] [place] [address] [id number] 5 01/21/2023 08:57:00 01/21/2023 15:46:30 Normal in multigravida 1529615649 26092 Z34.83 Gestation period, 35 weeks 65344542 Z3A.35 [id number] Nino Almanza MD [facility] ([facility]) [address] [place] [address] [id number] 5 01/27/2023 10:24:57 01/27/2023 20:26:28 Normal in multigravida 8533475620 71543 Z34.83 [id number] Nino Almanza MD [facility]) [address] [place] [address] [id number] 5 01/27/2023 10:53:40 01/27/2023 20:26:09 Normal in multigravida 5841697215 12299 Z34.83 Gestation period, 36 weeks 55791295 Z3A.36 [id number] Nino Almanza MD [facility] ([facility]) [address] [place] [address] [id number] 5 02/03/2023 10:30:04 02/03/2023 19:16:09 Normal in multigravida 3143527120 00973 Z34.83 Gestation period, 37 weeks 15068184 Z3A.37 [id number] Nino Almanza MD [facility] ([facility]) [address] [place] [address] [id number] 5 02/05/2023 15:23:49 02/05/2023 18:20:10 Normal in multigravida 2649036413 71793 Z34.83 [id number] Nino Almanza MD [facility] ([facility]) [address] [place] [address] [id number] 5 02/10/2023 09:07:04 02/10/2023 14:18:43 Normal in multigravida 2155048313 60074 Z34.83 Gestation period, 38 weeks 46681863 Z3A.38 [id number] Nino Almanza MD [facility] ([facility]) [address] [place] [address] [id number] 5 02/10/2023 09:07:18 02/10/2023 19:05:26 Normal in multigravida 7913910106 56392 Z34.83 [id number] Nino Almanza MD [facility] ([facility]) [address] [place] [address] [id number] 5 02/18/2023 14:43:15 02/28/2023 04:06:50 care 298214482 Z39.2 Removal of suture 766313 01 Z48.02 Postoperative care 47418 9007 Z48.89 [id number] Nino Almanza MD [facility] ([facility]) [address] [place] [address] [id number] 5 03/31/2023 10:47:05 03/31/2023 13:14:42 care 222984810 Z39.2 Contracept ion care management 856814604 Z30.9 [id number] FEMI BRODY PA-C [facility] ([facility]) [address] [place] [address] [id number] 5 08/05/2023 15:42:31 08/05/2023 17:23:58 Dysuria 36734053 R30.0 urine looks ok today Uses oral contraception 9577372 Z30.41 I discussed the following regarding all forms of control methods: effectiven ess, correct use, advantages /disadvant ages, common side effects, serious complicati ons, contra-ind ications/p recautions and return to fertility were reviewedSh e will finish her current pack and then switch to combo OC Mixed anxi ety and depressive disorder 595520423 F41.8 [id number] FEMI BRODY PA-C [facility] ([facility]) [address] [place] [address] [id number] 5 09/12/2023 12:00:44 09/12/2023 15:30:01 Mixed anxiety and depressive disorder 517966966 F41.8 will increase dose and have her come back in 2 month for recheck. Menometrorrhagia 8036319 08 N92.1 will try another month before changing [id number] Nino Almanza MD [facility] ([facility]) [address] [place] [address] [id number] 5 05/06/2024 14:00:24 05/06/2024 15:40:35 Normal in multigravida 0580876669 21500 Z34.83 Gestation period, 12 weeks 56953896 Z3A.12 Morning sickness 3922032 6 O21.9 [id number] Nino Almanza MD [facility] ([facility]) [address] [place] [address] [id number] 5 05/11/2024 14:07:39 05/12/2024 13:57:31 [id number] Nino Almanza MD [facility] ([facility]) [address] [place] [address] [id number] 5 06/04/2024 09:46:01 06/04/2024 11:15:12 Normal in multigravida 7360521047 45467 Z34.83 Gestation period, 16 weeks 45011763 Z3A.16 [id number] Nino Almanza MD [facility] ([facility]) [address] [place] [address] [place] [address]-770 5 07/01/2024 14:06:05 07/05/2024 13:53:19 [id number] Nino Almanza MD [facility] ([facility]) [address] [place] [address] [id number] 5 07/29/2024 08:38:43 07/29/2024 10:05:40 Normal in multigravida 3550992525 60500 Z34.82 Gestation period, 24 weeks 301674489 Z3A.24 [id number] Nino Almanza MD [facility] ([facility]) [address] [place] [address] 71159-685 5 08/26/2024 13:29:44 08/26/2024 16:30:55 Normal in multigravida 0349041137 37932 Z34.82 Gestation period, 28 weeks 57830679 Z3A.28 Anxiety 85966747 F41.9 Low matern al weight gain 92150559 O26.12 [id number] Nino Almanza MD [facility] ([facility]) [address] [place] [address] [id number] 5 09/13/2024 10:17:40 09/13/2024 15:08:26 Normal in multigravida 2347574041 15599 Z34.82 Gestation period, 31 weeks 30237133 Z3A.31 Nausea and vomiting in 8014761332 O21.9 Vaginal discharge 720208 006 N89.8 Dysuria 66860381 R30.0 [id number] Nino Almanza MD [facility] ([facility]) [address] [place] [address] 53180-825 5 09/28/2024 13:42:22 09/28/2024 14:58:25 Normal in multigravida 8893911970 28019 Z34.82 Gestation period, 33 weeks 79815960 Z3A.33 Heartburn 84409287 R12 [id number] Nino Almanza MD [facility] ([facility]) [address] [place] [address] [id number] 5 09/29/2024 08:53:11 09/30/2024 13:44:23 [id number] Nino Almanza MD [facility] ([facility]) [address] [place] [address] [id number] 5 10/21/2024 13:27:18 10/22/2024 09:20:37 Normal in multigravida 2310434648 62702 Z34.82 Gestation period, 36 weeks 37103966 Z3A.36 [id number] Nausea and vomiting in 8439405830 O21.9 [id number] Nino Almanza MD [facility] ([facility]) [address] [place] [address] [id number] 5 10/28/2024 14:41:56 10/28/2024 15:45:19 Normal in multigravida 9489970306 87498 Z34.82 Gestation period, 37 weeks 73598935 Z3A.37 5884300 [id number] Nino Almanza MD [facility] ([facility]) [address] [place] [address] [id number] 5 11/08/2024 12:59:37 11/09/2024 11:03:50 Postoperative visit 032208864 Z48.89 [id number] depression 58 819688 F53.0 00494 Anxiety 08963137 F41.9 [id number] Nino Almanza MD [facility] ([facility]) [address] [place] [address] 74863-229 5 11/18/2024 09:21:06 11/18/2024 10:54:01 depression 25073012 F53.0 99070 Anxiety 09680443 F41.9 62754 [id number] Nino Almanza MD [facility] ([facility]) [address] [place] [address] 57396-593 5 12/21/2024 10:27:24 12/21/2024 11:08:57 Anxiety 61739304 F41.9 27134 depression 58 022329 F53.0 39213 Health Concerns Section Related Observation LastModified by Organization Detai ls LastModified Time None Recorded Concern Status LastModified by Organization Details LastModified Time None Recorded Advance Directives Directive None Recorded Payers Insurance Date Sequence Insurance Name Policy Number Policy Salazar Covered Member ID Salazar Member ID Guarantor Name 04/01/2025 [place] [facility] Chika Osbornrian [id number] Chika Garner Mili 04/01/2025 [place] Chika Garner Mili [id number] Chika Garner Mili 04/01/2025 1 [employer] [place] [employer] [place] - [place] [id number] Chika A Mili [id number] Chika Pascual Mili Notes Date Note Type Note Provider Name and Address Organization Details Recorded Time 10/22/19 25 text/htm l jr ob routineReported by PatientHPIFor associated symptoms, patient reportsabdominal pain (upper abd tender to touch),cramping,vaginal discharge (increased),nausea,emesis, andheadachebut reportsno contractions,normal movement,no bleeding,no vaginal/vulvar itching or irritation,no dysuria,no frequency,no urgency,no hematuria,no fever,no constipation,no diarrhea/loose stool,no edema,no dizziness, andno breathlessness.fatigue, acid refluxDenies any tobacco, alcohol use. Pt is smoking Marijuana dailyROS as noted in the [facility] Nino Almanza MD [address] [place] [address], [phone] 10/26/2024 20:41:16 10/29/19 25 text/htm l ob routineReported by PatientHPIFor associated symptoms, patient reportsabdominal pain (upper abd tender to touch),cramping,vaginal discharge,nausea,constipation, andheadachebut reportsno contractions,normal movement,no bleeding,no vaginal/vulvar itching or irritation,no dysuria,no frequency,no urgency,no hematuria,no fever,no emesis,no diarrhea/loose stool,no edema,no dizziness, andno breathlessness.fatigue, acid reflux, vaginal pressureDenies any tobacco, alcohol use. Pt is smoking Marijuana dailyROS as noted in the [facility] Nino Almanza MD [address] [place] [address], [phone], [facility] 10/28/2024 15:44:03 11/09/19 25 text/htm l jr post or tubalReported by PatientHPIFor associated symptoms, patient reportsfatigueandnauseabut reportsincision healing wellandno fever. For onset/timing, patient reportsdate of surgery: ([id number]). For quality, patient reportsprocedure: (). Pt states her left her 2 days ago.She has been very emotional, pt is staying with her inlaws at this time, Pt states she needs something to help with the depression, she has not been able to breast feed and her mom is watching her son. Pt is having pain and numbness in her lower back. Nino Almanza MD [address] [place] [address], [phone], [facility] 11/09/2024 10:22:45 11/19/19 25 text/htm l Anxiety/DepressionReported by PatientHPIFor severity, patient reportsinterference with activities of daily living (depending on the day)but reportsdenies suicidal ideationsandsymptoms improved. For context, patient reportsmajor life stressorsandfamily problems. For associated symptoms, patient reportshigh irritability,anxiety,depressio n,feeling guilty,low self-esteem,social withdrawal,headaches, andfatiguebut reportsdenies homicidal ideations,no visual/auditory hallucinations, andsleeping well. For duration, patient reportsacute. For modifying factors, patient reportsmedications as directed. Pt is staying with her exs dad and step mom, pt states she is doing better, she has been having more headaches and is not sure if that is from the increase in the meds. Pt states nights are harder. Pt would like to discuss going to counseling. Nino Almanza MD [address] [place] [address], [phone], [facility] 11/18/2024 10:48:49 12/22/19 25 text/htm l Generalized Anxiety DisorderReported by PatientHPIFor associated symptoms, patient reportsdifficulty concentrating,difficulty controlling worry,excess anxiety,chest pain (with high anxiety),shortness of breath,nausea,diarrhea,headach es, andsleep disturbances. For onset/timing, patient reports___ months. For severity, patient reportsmoderate. For context, patient reportsdepression. Pt stated that she felt she is starting to improve. She is still having daily headaches, but she is not waking up with them now. She did state that the last 2 days she has been having increased anxiety Nino Almanza MD [address] [place] [address], [phone], [facility], [facility] 12/21/2024 11:07:42 OBGyn Episode Ob Episode Information Episode Created Date Number of Fetuses Patient Bloodtype Patient rh Status Prepregnancy Weight lbs Domestic Partner Domestic Partner Phone Father Name B And B Gang Worker Status 05/06/20 24 1 O Positive Treasure Pandey CLOSED Fetus Data First Name Last Name Admitted to NICU Weight (g) Sex Living Outcome Pediatric Complications Fetus ID Race Codes Race Delivery Type Gerson wesley 2551.45 5 F true Full Term [id number] Zeeshan Calculation Initial Zeeshan Date Initial [...] Weight in lbs Pre/Post Dialysis Refused Weight 95.4399633727097 BP Diastolic BP Location Tested BP Systolic [...] Type Weight in lbs Pre/Post Dialysis Refused 92.3700723511441 BP Diastolic BP Location Tested BP Systolic [...] Type Weight in lbs Pre/Post Dialysis Refused 96.5354561139962 BP Diastolic BP Location Tested BP Systolic [...] Type Weight in lbs Pre/Post Dialysis Refused 96.0469960842529 BP Diastolic BP Location Tested BP Systolic [...] Type Weight in lbs Pre/Post Dialysis Refused 95.0695592303833 BP Diastolic BP Location Tested BP Systolic [...] Weight in lbs Pre/Post Dialysis Refused Weight 104.625344651861 BP Diastolic BP Location Tested BP Systolic [...] Weight in lbs Pre/Post Dialysis Refused Weight 102.479867801824 BP Diastolic BP Location Tested BP Systolic [...] Weight in lbs Pre/Post Dialysis Refused Weight 103.141704640067 BP Diastolic BP Location Tested BP Systolic BP Type 60 104 Fetus Heart Rate Present A 144 Present Fetus Movement A Yes Comments pelvic/ vaginal pressure, cr amps, nausea Flowsheet Date 11/08/2024 Quiroz Score Blood Edema Fundus Height Fundus Units Glucose Ketones Leukocytes Nitrite Labor Signs Protein Cervic Dilation Cervic Effacement Cervic Station Type Weight in lbs Pre/Post Dialysis Refused Weight 84.9126090664706 BP Diastolic BP Location Tested BP Systolic BP Type 70 122 sitting Fetus Heart Rate Present Fetus Movement Comments Menstrual History Last Menstrual Date Menses Monthly On Bcp Conception Prior Menses Frequency Hcg Plus Date Menarche Onset Age 0802/09/2024 Genetic Screening And Infection History Question Response Note Patient's Age Will Be 35 Years Or Older At Estim ated Date of Delivery false Thalassemia (Surinamese, [place] Citizen, Mediterranean, Or Background): MCV < 80 false Neural Tube Defect (Meningomyelocele, Spina Bifi da, Or Anencephaly) false Congenital Heart Defect false Down Syndrome false Cristobal-Sachs (eg, Jehovah'S Witness, Cajun, Moldovan-Israeli) f alse Madeline Disease false Sickle Cell Disease Or Trait () false Hemophilia Or Other Blood Disorders false Muscular Dystrophy false Cystic Fibrosis false [place]'s Chorea false Intellectual Disability/Autism false If Yes, [...] Post Complications Tubal Sterilization Discharge Date Comments 5 37.6 Nino Almanza MD Other false depressio n Discharge Information Feeding Method Contraceptive Method Maternal HG B and HCT Levels Combination Ob Episode Information Episode Created Date Number of Fetuses Patient Bloodtype Patient rh Status Prepregnancy Weight lbs Domestic Partner Domestic Partner Phone Father Name B And B Gang Worker Status 10/08/19 23 1 O Positive Treasure Garzal CLOSED Fetus Data First Name Last Name Admitted to NICU Weight (g) Sex Living Outcome Pediatric Complications Fetus ID Race Codes Race Delivery Type Ward false 2976.69 75 M 530 Problems Problem Notes Needs weekly testing a t 32 weeks.Bilateral Clubfoot Problem Name Start Date End Date Resolution Snomed Code Not e Normal in multigravida 01/06/2023 [id number] Zeeshan Calculation Initial Zeeshan Date Initial Exam [...] Weight in lbs Pre/Post Dialysis Refused Weight 107.066020447913 BP Diastolic BP Location Tested BP Systolic [...] Weight in lbs Pre/Post Dialysis Refused Weight 110.106296165870 BP Diastolic BP Location Tested BP Systolic [...] Weight in lbs Pre/Post Dialysis Refused Weight 115.340903065317 BP Diastolic BP Location Tested BP Systolic [...] Weight in lbs Pre/Post Dialysis Refused Weight 116.727378557464 BP Diastolic BP Location Tested BP Systolic [...] Weight in lbs Pre/Post Dialysis Refused Weight 117.177263246219 BP Diastolic BP Location Tested BP Systolic [...] Weight in lbs Pre/Post Dialysis Refused Weight 118.798772387581 BP Diastolic BP Location Tested BP Systolic [...] Weight in lbs Pre/Post Dialysis Refused Weight 120.403908201720 BP Diastolic BP Location Tested BP Systolic [...] prese ntation, ZEESHAN 02/21/23, RAMAN 14.61, BPP 88. Flowsheet Date 01/29/2023 Quiroz Score Blood Edema [...] Fetus Movement Comments BPP on 01/27/23 results 8/8, b reech presentation. RAMAN 11.47 Flowsheet Date 02/03/2023 Quiroz Score Blood Edema Fundus Height Fundus Units Glucose Ketones Leukocytes Nitrite Labor Signs Protein Cervic Dilation Cervic Effacement Cervic Station 36 wks none 1+ trace Type Weight in lbs Pre/Post Dialysis Refused Weight 119.215498432383 BP Diastolic BP Location Tested BP Systolic [...] Rate Present Fetus Movement Comments 02/05/23 BPP 6/8, RAMAN 8.99 sl ightly decreased Flowsheet Date [...] Weight in lbs Pre/Post Dialysis Refused Weight 123.129820190203 BP Diastolic BP Location Tested BP Systolic [...] Present Fetus Movement Comments U/S of 02/08/23-BPP 8/ FHT13 1 Flowsheet Date 02/18/2023 Quiroz Score Blood Edema Fundus Height Fundus Units Glucose Ketones Leukocytes Nitrite Labor Signs Protein Cervic Dilation Cervic Effacement Cervic Station Type Weight in lbs Pre/Post Dialysis Refused Weight 103.226988734521 BP Diastolic BP Location Tested BP Systolic [...] Fetus Movement Comments u/s on 02/10/23 BPP 6/8. RAMAN 9.64. Breech Menstrual History Last Menstrual Date Menses Monthly On Bcp Conception Prior Menses Frequency Hcg Plus Date Menarche Onset Age Genetic Screening And Infection History Question Response Note Patient's Age Will Be 35 Yea rs Or Older At Estimated Date of Delivery false Thalassemia (Surinamese, [place] Citizen, Mediterranean, Or Background): MCV < 80 false Neural Tube Defect (Meningom yelocele, Spina Bifida, Or Anencephaly) false Congenital Heart Defect false Down Syndrome false Cristobal-Sachs (eg, Jehovah'S Witness, Cajun, Moldovan-Israeli) f alse Madeline Disease false Sickle Cell [...] Tubal Sterilization Discharge Date Comments 3 38.6 Low Nino Ferraro MD None Discharge Information Feeding Method Contraceptive Method Maternal HG B and HCT Levels
--- OUTSIDE RECORDS SUMMARY | 2025-04-02 18:18 | XMS_ITS | Encounter Summary ---
Author Organization [facility] Address [address] [place] [address] Care Team Providers Care Title One Reading Teacher Name Role Phone Unavailable Primary Care Provider Unavailabl e Encounter Details Date Type Department Care Team (Latest Contact Info) Description 02/12/2001 Outpatient Historical [facility] Head and Neck Surgery-[address] [place] [id number] Herrera Theodore [address], [place] [address] Simple or unspecified chronic serous otitis media (Primary Dx) Social History Tobacco Use Types Packs/Day Years Used Date Smoking Tobacco: Never Assessed Comments Unknown Sex and Gender Information Value Date Recorded Sex Assigned at Not on file 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
--- OUTSIDE RECORDS SUMMARY | 2025-04-02 18:18 | XMS_ITS | Clinical Summary ---
Author Organization [facility] Address [address] [facility] Attn: Epic Prelude ADT NOEMI GUY [address] Care Team Providers Care Tube Drawer Name Role Phone Unavailable Primary Care Provider [...] on file Legal Sex Female 11:01 AM TUNA PURSE SEINER Gender Identity Not on file Sexual Orientation Not on file Last Filed Vital Signs Vital Sign Reading Time Taken Comments Blood Pressure 115/78 06/14/2020 4:18 PM TUNA PURSE SEINER Pulse - - Temperature 36.4 C (97.5 F) 06/14/2020 4:18 PM TUNA PURSE SEINER Respiratory Rate 20 06/14/2020 4:18 PM TUNA PURSE SEINER Oxygen Saturation - - Inhaled Oxygen Concentration - - Weight 39.3 kg (86 lb 9.6 oz) 06/14/2020 2:54 PM TUNA PURSE SEINER Height 147.3 cm (4' 10 ) 06/14/2020 2:54 PM TUNA PURSE SEINER Body Mass Index 18.1 06/14/2020 2:54 PM TUNA PURSE SEINER Plan of Treatment Health Maintenance Due Date Last Done Comments DTAP/TDAP/TD VACCINES (5 - Tdap) 02/20/2011 10/23/2001, 2000, 2000, Additional history exists HPV VACCINES (1 - 3-dose series) 02/20/2015 CERVICAL CANCER SCREENING 02/20/2021 HPV/Cotest (21-29) 02/20/2021 PAP SMEAR 02/20/2021 INFLUENZA VACCINE (#1) 2025 HEPATITIS B VACCINES Completed 2000, 2000, 2000
--- OUTSIDE RECORDS SUMMARY | 2025-04-02 18:18 | XMS_ITS | Encounter Summary ---
Author Organization [facility] Address [address] [place] [address] Care Team Providers Care Cable Armorer Operator Name Role Phone Unavailable Primary Care Provider Unavailabl e Encounter Details Date Type Department Care Team (Latest Contact Info) Description 02/12/2001 Outpatient Historical [facility] Ear, Nose and Throat [address] 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
--- OUTSIDE RECORDS SUMMARY | 2025-04-02 18:18 | XMS_ITS | Encounter Summary ---
Author Organization [facility] Address [address] [place] [address] Care Team Providers Care Shed Workers Supervisor Name Role Phone Unavailable Primary Care Provider Unavailabl e Encounter Details Date Type Department Care Team (Late st Contact Info) Description 02/09/2001 Outpatient Historical [facility] Ear, Nose and Throat [address] 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
--- OUTSIDE RECORDS SUMMARY | 2025-04-02 18:18 | XMS_ITS | Clinical Summary ---
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 MANAGER Gender Identity Not on file Sexual Orientation Not on file Occupation Industry Job Start Date Job End Date Not on file Not on file Not on file Not on file Last Filed Vital Signs Vital Sign Reading Time Taken Comments Blood Pressure 115/78 06/14/2020 4:18 PM PROJECTS MANAGER Pulse 106 12/14/2011 8:46 AM CDT Temperature 36.4 C (97.5 F) 06/14/2020 4:18 PM PROJECTS MANAGER Respiratory Rate 20 06/14/2020 4:18 PM PROJECTS MANAGER Oxygen Saturation 100% 06/14/2020 4:18 PM PROJECTS MANAGER Inhaled Oxygen Concentration - - Weight 39.3 kg (86 lb 9.6 oz) 06/14/2020 2:54 PM PROJECTS MANAGER Height 147.3 cm (4' 10 ) 06/14/2020 2:54 PM PROJECTS MANAGER Body Mass Index 18.1 06/14/2020 2:54 PM PROJECTS MANAGER Plan of Treatment Health Maintenance Due Date Last Done Comments DTAP/TDAP/TD VACCINES (5 - Tdap) 02/20/2011 10/23/2001, 2000, 2000, Additional history exists HPV VACCINES (1 - 3-dose series) 02/20/2015 CERVICAL CANCER SCREENING 02/20/2021 HPV/Cotest (21-29) 02/20/2021 PAP SMEAR 02/20/2021 INFLUENZA VACCINE (#1) 2025 HEPATITIS B VACCINES Completed 2000, 2000, 2000 Insurance [place]ICAID [place] BENEFIT SYS ADMIN PRACTITIONER ONLY [place]
[2025-04-02 18:28] LABS: Hematocrit 38.2 % (36-47); Hemoglobin 12.70 g/dL (11.27-16.99); Mean Corpuscular HGB Conc 33.2 g/dL (30-55); Mean Corpuscular Hemoglobin 28.3 pg (27-33); Mean Corpuscular Volume 85.3 fl (85-98); Nucleated Red Blood Cells % 0 %; Platelet Count 357 10^3/cmm (157-399); Red Blood Count 4.48 10^6/uL (3.85-5.65); White Blood Count 11.02 10^3/uL (3.29-11.43)
[2025-04-02 18:41] LABS: Alanine Aminotransferase 14 U/L (0-33); Albumin Level 4.3 g/dL (3.5-5.2); Alkaline Phosphatase 93 U/L (35-105); Anion Gap 16.9 (5-19); Aspartate Amino Transferase 16 U/L (0-32); Blood Urea Nitrogen 15 mg/dL (6-20); Calcium 8.7 mg/dL (8.5-10.5); Carbon Dioxide 22 mmol/L (22-29); Chloride 104 mmol/L (98-107); Creatinine Clr Calc Pharmacy 100.5829; Globulin 2.8 g/dL (1.3-4.6); Glucose 127 mg/dL (65-115); Lipase 44 U/L (13-60); Osmolality Calculated 290 mOsm/kg (285-295); Potassium 3.9 mmol/L (3.5-5.1); Sodium 139 mmol/L (136-145); Total Protein 7.1 g/dL (6.6-8.7)
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
[2025-04-02 18:54] LABS: Add Urine Microscopic? NO
[2025-04-02 18:56] VITALS: BP 121/86; PULSE 94; RESP 16; O2SAT 98
[2025-04-02 19:04] LABS: Charge for UA Resulting for Rev; Glucose Urine UA Norm (Normal); Nitrate Urine Negative (Negative); Specific Gravity, Urine 1.015 (1.005-1.030)
[2025-04-02] MEDS: iohexol 350 mg/mL 500 mL Btl (per mL) IV (19:14)
[2025-04-02] MEDS: ondansetron 2 mg/ML SDV 2 mL 4 MG IVP (19:35)
[2025-04-02] MEDS: morphine 4 mg/mL SDV 1 mL IVP (19:35)
[2025-04-02 20:00] VITALS: BP 136/84; PULSE 86; RESP 16; O2SAT 100
[2025-04-02] MEDS: LORazepam 1 MG/0.5 ML injection IVP (20:42)
== END 2025-04-02 22:15 | disposition home or self-care (01) ==
PROVIDERS: Emergency Provider Emergency Medicine; PCP Family Medicine
DX: S30.11XA Contusion of abdominal wall, initial encounter (principal); Y04.0XXA Assault by unarmed brawl or fight, initial encounter
CPT/HCPCS: 36415; 74177; 80053; 81003; 83690; 84702; 85025; 86140; 96374; 96375; 99285; J2060; J2270; J2405; J7030